=== PATIENT | female | born 1950 | race Caucasian/White ===

== ENCOUNTER 2019-05-25 13:39 | Emergency (ER) | payer MEDICARE, SELFPAY ==
--- NOTE | 2019-05-25 13:51 | DI.RAD.S_ITS ---
PROCEDURE: XR SHOULDER RT MIN 2V INDICATIONS: fall with pain in shoulder TECHNIQUE: 3 views of the shoulder were acquired. COMPARISON: None. FINDINGS: Bones: No fractures or dislocations. No suspicious bony lesions. Visualized ribs appear intact. Soft tissues: No suspicious soft tissue calcifications. IMPRESSION: Moderate right a.c. joint without fracture, rthritis but no acute trauma found. Dictated by: Jaspreet Turner M.D. on 05/25/2019 at 14:20 Approved by: Jaspreet Turner M.D. on 05/25/2019 at 14:20
[2019-05-25 13:52] VITALS: BP 170/94; PULSE 105; RESP 16; TEMP 36.2; O2SAT 96; BMI 41.1
--- NOTE | 2019-05-25 14:25 | ED_ITS ---
HPI - Extremity Injury (Upper) <ANTOINE Moreno - Last Filed: 05/25/19 19:10> General Chief Complaint: Extremity Injury, Upper Stated Complaint: FELL ON RIGHT SHOULDER Time Seen by Provider: 05/25/19 13:43 Source: patient Mode of arrival: ambulatory Limitations: no limitations History of Present Illness HPI narrative: 68-year-old female with a history of right shoulder strain, presents emergency department today after tripping over the hose and falling on her right shoulder. She stated that she is unable to lift her arm above her head due to the pain, she states the pain is a dull aching 5/10 that is worse with movement and better with rest. She was currently seeing physical therapy for a strain that she has had to that shoulder. She denies any fevers, chest pain, shortness of breath, syncope, dizziness, previous surgeries to the shoulder, numbness, tingling, nausea, vomiting, or bowel changes. Related Data Home Medications Medication Instructions Recorded Confirmed CHOLECALCIFEROL (VITAMIN D3) 2,000 iu PO Q DAY #0 07/08/10 05/19/18 (Vitamin D3) [MELATONIN] 3 mg PO HS #0 04/27/11 [OMEGA 3] Q DAY #0 04/27/11 05/19/18 [PROGESTERONE] mg BID #0 04/27/11 05/19/18 [VITAMIN B COMPLEX] Q DAY #0 04/27/11 losartan 25 mg PO BID #0 04/27/11 05/19/18 lovastatin 10 mg PO QPM #0 04/27/11 05/25/19 metformin [Glucophage] 500 mg PO Q DAY #0 04/27/11 05/25/19 omeprazole 20 mg PO QDAY #0 04/27/11 aspirin 81 mg tablet,delayed 81 mg PO DAILY 05/19/18 05/19/18 release diclofenac sodium 2 - 4 g TOPICAL QID PRN 05/25/19 05/25/19 Allergies Allergy/AdvReac Type Severity Reaction Status Date / Time ascorbic acid Allergy Verified 05/25/19 13:52 codeine Allergy Verified 05/25/19 13:52 Sulfa (Sulfonamide Allergy Verified 05/25/19 13:52 Antibiotics) Review of Systems <ANTOINE Moreno - Last Filed: 05/25/19 19:10> Review of Systems REVIEW OF SYSTEMS: GENERAL: Denies fever or chills. HENT: No head trauma. EYES: No double vision or vision loss. CARDIOVASCULAR: No chest pain or syncope. RESPIRATORY: No shortness of breath or cough. GASTROINTESTINAL: No nausea, vomiting, diarrhea, or constipation. GENITOURINARY: No flank pain or dysuria. MUSCULOSKELETAL: Complains of right shoulder pain, see HPI. INTEGUMENTARY: No rash, lesions, or pruritus. NEURO: No numbness, tingling. PSYCH: No behavior or mood changes. PFSH <ANTOINE Moreno - Last Filed: 05/25/19 19:10> Medical History Abdominal hernia (Resolved) Surgical History H/O gastric bypass (Resolved) H/O medial meniscus repair of right knee (Resolved) H/O tubal ligation (Resolved) Status post surgery (07/08/10) Social History Smoking Status: Never smoker Social History Smoking Status: Never smoker Exam <ANTOINE Moreno - Last Filed: 05/25/19 19:10> Initial Vital Signs Initial Vital Signs: Vital Signs Temperature 97.2 F L 05/25/19 13:52 Pulse Rate 105 H 05/25/19 13:52 Respiratory Rate 16 05/25/19 13:52 Blood Pressure 170/94 H 05/25/19 13:52 Pulse Oximetry 96 05/25/19 13:52 PHYSICAL EXAMINATION: GENERAL: Well groomed, alert, and cooperative. Answers questions promptly and appropriately. Vital signs noted. HENT: Normocephalic, atraumatic. Small superficial lacerations about 0.25cm were noted to the right side of her nose and under her eye, this appeared to be from a branch that was in the way when she fell. EYES: Symmetrical, sclera white, no periorbital swelling. CARDIOVASCULAR: S1 and S2 sounds normal. Regular rate and rhythm, no murmurs, clicks, or bruits. No pedal edema. RESPIRATORY: Normal respiratory rate, trachea midline, airway patent. No stridor, nasal flaring or accessory muscle use. Lungs are clear in all oneill. MUSCULOSKELETAL: Right shoulder tenderness specific to AC area. Inability to extend shoulder due to pain. Limited internal and external rotation due to pain. Small amount of swelling to area of AC joint, no ecchymosis. Full range of motion of elbow, wrist, and hand. Upper extremity strength was equal bilaterally. Normal gait and coordination. Equal tone and mass bilaterally. No spinal tenderness or deformities. EXTREMITIES: CMS intact. No pedal edema. SKIN: Warm, dry, soft, appropriate color for ethnicity. No lesions, rashes, or wounds. NEURO: Alert and Oriented X 3. No sensory deficits. PSYCH: Appropriate affect and mood. <Fauzia Olmedo DO - Last Filed: 05/26/19 07:32> Initial Vital Signs Initial Vital Signs: Vital Signs Temperature 97.2 F L 05/25/19 13:52 Pulse Rate 105 H 05/25/19 13:52 Respiratory Rate 16 05/25/19 13:52 Blood Pressure 170/94 H 05/25/19 13:52 Pulse Oximetry 96 05/25/19 13:52 Course <ANTOINE Moreno - Last Filed: 05/25/19 19:10> Course Narrative: Patient states she felt better after administration of Toradol. I discussed with patient that she should follow up with her primary care provider. She states that she is already seeing a physical therapist, he encouraged her to speak with physical therapist about altering the therapy due to her new diagnosis. Explained to patient that in order we need to come from her primary care provider for extensive lr as he or she has the ability to follow up with her. Orders Ordered: Discontinued Medications Ketorolac Tromethamine (Toradol) 30 mg IM NOW ONE Stop: 05/25/19 14:08 Last Admin: 05/25/19 14:38 Dose: 30 mg Consultations Consultation #1: Patient was staffed with Dr. Olmedo. Vital Signs - 8 hr 05/25/19 13:52 Temperature 97.2 F L Pulse Rate 105 H Respiratory Rate 16 Blood Pressure 170/94 H Pulse Oximetry 96 <Fauzia Olmedo DO - Last Filed: 05/26/19 07:32> Orders Ordered: Discontinued Medications Ketorolac Tromethamine (Toradol) 30 mg IM NOW ONE Stop: 05/25/19 14:08 Last Admin: 05/25/19 14:38 Dose: 30 mg Vital Signs - 8 hr 05/25/19 13:52 Temperature 97.2 F L Pulse Rate 105 H Respiratory Rate 16 Blood Pressure 170/94 H Pulse Oximetry 96 [facility] - Extremity Injury (Upper) <ANTOINE Moreno - Last Filed: 05/25/19 19:10> Medical Records Attestation: I reviewed the patient's medical records. Lab Data Attestation: I reviewed the patient's lab results. Imaging Data R Shoulder: Radiologist's impression: [address] [address] XRay Report Signed Patient: Marlen Jules MMR#: [id number] : [id number]:[id number] Age/Sex: 68 / FDate of Service: 05/25/19 Loc: ED Accession Number: [id number] Procedure: XR shoulder RT min 2V Ordering Provider: Halie Hernandez PROCEDURE: XR SHOULDER RT MIN 2V INDICATIONS: fall with pain in shoulder TECHNIQUE: 3 views of the shoulder were acquired. COMPARISON: None. FINDINGS: Bones: No fractures or dislocations. No suspicious bony lesions. Visualized ribs appear intact. Soft tissues: No suspicious soft tissue calcifications. IMPRESSION: Moderate right a.c. joint without fracture, rthritis but no acute trauma found. Dictated by: Jaspreet Turner M.D. on 05/25/2019 at 14:20 Approved by: Jaspreet Turner M.D. on 05/25/2019 at 14:20 [facility] Narrative Medical decision making narrative: Differential includes AC joint separation (this is noted on x-ray, , tenderness states the area reported trauma to right shoulder with history of shoulder issues), fracture (less likely due to no evidence of fracture on x-ray), strain, sprain, soft tissue injury. Discharge Plan Departure Patient Disposition: Home Clinical Impression: Acromioclavicular joint separation Qualifiers: Encounter type: initial encounter Laterality: right Qualified Code(s): S43.101A - Unspecified dislocation of right acromioclavicular joint, initial encounter Discharge Date/Time: 05/25/19 15:21 Interventions: ED Discharge Assessment Last Done: 05/25/19 15:20 Instructions: DI for AC Joint Separation Activity Restrictions/Additional Instructions: Thank you for entrusting me with your care today. As discussed, your x-ray show that you have AC joint separation, which is a tear in the ligament of your shoulder. I have given you a sling to use for pain as needed. Do not use the sling more than a week. I recommend that you follow up with your primary care provider in the next few weeks, as well as continue with physical therapy. Return to the emergency department if he develops chest pain, shortness of breath, seizures, syncope, high fevers, or uncontrollable vomiting. Prescriptions: No Action CHOLECALCIFEROL (VITAMIN D3) (Vitamin D3) 2,000 iu PO Q DAY Qty: 0 RF: 0 [PROGESTERONE] BID Qty: 0 RF: 0 lovastatin 10 mg Tablet 10 mg PO QPM Qty: 0 RF: 0 losartan 25 MG tablet 25 mg PO BID Qty: 0 RF: 0 metformin [Glucophage] 500 MG tablet 500 mg PO Q DAY Qty: 0 RF: 0 omeprazole 20 MG capsule,delayed release(DR/EC) 20 mg PO QDAY Qty: 0 RF: 0 [OMEGA 3] Q DAY Qty: 0 RF: 0 [VITAMIN B COMPLEX] Q DAY Qty: 0 RF: 0 [MELATONIN] 3 mg PO HS Qty: 0 RF: 0 aspirin 81 mg tablet,delayed release (DR/EC) 81 mg PO DAILY RF: 0 diclofenac sodium 1 % gel 2 - 4 g topical QID PRN (Reason: pain) RF: 0 Referrals: Haley Bills PA-C [Primary Care Provider] - <Fauzia Olmedo DO - Last Filed: 05/26/19 07:32> [facility] ED Attending Tomas Attestation: I was immediately available in the department for consultation. Documentation has been reviewed. I agree with assessment and plan.
[2019-05-25] MEDS: KETOROLAC 60 MG/2 ML VIAL 30 MG IM (14:38)
== END 2019-05-25 15:21 | disposition home or self-care (01) ==
PROVIDERS: Emergency Provider Nurse Practitioner; Family Provider Physician Assistant Medical; PCP Physician Assistant Medical
DX: S43.101A Unspecified dislocation of right acromioclavicular joint, initial encounter (principal); W01.0XXA Fall on same level from slipping, tripping and stumbling without subsequent striking against object, initial encounter
CPT/HCPCS: 73030; 96372; 99282; 99283; J1885

== ENCOUNTER → 2019-06-12 19:49 | Outpatient (CLI) | payer MEDICARE, SELFPAY ==
--- NOTE | 2019-06-12 19:54 | DI.MRI.S_ITS ---
PROCEDURE: MR SHOULDER RT WO CON INDICATIONS: CLOSED GLENOID FX RIGHT TECHNIQUE: Noncontrast oblique coronal T2 fast spin echo with fat saturation, oblique sagittal T1 spin echo and T2 fast spin echo with fat saturation, axial T1 spin echo and T2 fast spin echo with fat saturation through the shoulder. COMPARISON: None. FINDINGS: Image quality: Diagnostic. Rotator cuff: There is a complete tear evident involving the supraspinatus tendon that measures at least 3.2 cm in transverse dimension with retraction of the torn tendon fragments proximally by approximately 2.7 cm. There also is complete or near-complete tearing involving the subscapularis tendon, measuring approximately 1.9 cm in transverse dimension. Proximal retraction of the torn tendon fragments by approximately 2.5 cm is present. There may be a few intact fibers along the inferior subscapularis tendon. The infraspinatus tendon demonstrates mild increased signal with a low-grade intrasubstance/delaminating partial-thickness tearing. The teres minor tendon is intact. There is atrophy of the supraspinatus and infraspinatus muscles. No significant subscapularis or teres minor muscle atrophy is evident. Bones and bursae: No acute fracture, dislocation, or suspicious osseous lesion is identified. There is a large glenohumeral joint effusion. There are moderate degenerative changes of the acromioclavicular joint. Fluid is contained within the subacromial subdeltoid bursa. Capsule and soft tissues: There is irregular posterior labral tearing that extends from approximately the 11 o'clock position (anterosuperior) through the 12 o'clock position (superior) and along the posterior labrum to approximately the 6 o'clock position (inferior). The long head of the biceps tendon is dislocated from the bicipital groove and positioned on the anteromedial aspect of the humeral head. This tendon demonstrates increased signal along its intra-articular course without a full-thickness tear identified. There is slight edema about the inferior glenohumeral ligament. The middle and superior glenohumeral ligaments are not well evaluated. IMPRESSION: 1. Large full-thickness tears of the supraspinatus head subscapularis tendons with mild corresponding tendon retraction. Atrophy of the supraspinatus tendon raises the suspicion for possible superimposed chronic process. 2. Low-grade intrasubstance/delaminating partial-thickness tear of the infraspinatus tendon with corresponding tendinopathy. 3. Moderate-sized posterior labral tear. 4. Moderate tendinopathy involving the intra-articular portion of the biceps tendon. This tendon is dislocated from the bicipital groove, suggesting a transverse ligament tear. 5. Moderate degenerative changes of the acromioclavicular joint. 6. Large glenohumeral joint effusion. 7. Probable low-grade sprain of the inferior glenohumeral ligament. Dictated by: Patrick Oden M.D. on 06/13/2019 at 8:58 Approved by: Patrick Oden M.D. on 06/13/2019 at 9:07
== END ==
PROVIDERS: Family Provider Physician Assistant Medical; PCP Physician Assistant Medical; Visit Provider Orthopaedic Surgery
DX: S43.491A Other sprain of right shoulder joint, initial encounter (principal); M75.121 Complete rotator cuff tear or rupture of right shoulder, not specified as traumatic; M25.411 Effusion, right shoulder; M19.011 Primary osteoarthritis, right shoulder
CPT/HCPCS: 73221

== ENCOUNTER → 2019-09-27 13:37 | Outpatient (CLI) | payer MEDICARE, SELFPAY ==
[2019-09-27 14:41] LABS: Alanine Aminotransferase 16 IU/L (<35); Albumin 4.8 g/dL (3.5-5.0); Albumin Globulin Ratio 1.7 (1.0-2.8); Alkaline Phosphatase 79 U/L (38-126); Aspartate Aminotransferase 21 IU/L (14-36); BUN Creatinine Ratio 37.1 (6-22); Bilirubin Total 0.7 mg/dL (0.2-1.3); Blood Urea Nitrogen 26 mg/dL (7-17); Calcium 10.3 mg/dL (8.4-10.2); Carbon Dioxide 24 mmol/L (22-32); Chloride 102 mmol/L (98-107); Estimated Glomerular Filt Rate > 60.0 mL/min (>60); Globulin 2.8 g/dL (1.7-4.1); Glucose 118 mg/dL (80-110); HEMOLYSIS < 15 (0-50); Potassium 4.7 mmol/L (3.4-5.1); Sodium 136 mmol/L (137-145); Total Protein 7.6 g/dL (6.3-8.2)
== END ==
PROVIDERS: Surgery; Family Provider Physician Assistant Medical; PCP Physician Assistant Medical; Visit Provider Surgery
DX: Z98.84 Bariatric surgery status (principal)
CPT/HCPCS: 36415; 80053

== ENCOUNTER → 2019-09-28 15:13 | Outpatient (CLI) | payer MEDICARE, SELFPAY | PROVIDERS: Family Provider Physician Assistant Medical; PCP Physician Assistant Medical; Visit Provider Orthopaedic Surgery | DX: Z01.818 Encounter for other preprocedural examination (principal) | CPT/HCPCS: 93005 ==

== ENCOUNTER 2019-10-10 06:04 | Inpatient (IN) | payer MEDICARE, SELFPAY ==
[2019-09-28 08:55] VITALS: BMI 42.5
[2019-10-10] VITALS (14 sets, daily range): BP systolic 115–150; BP diastolic 43–93; PULSE 92–111; RESP 17–27; TEMP 36.1–36.8; O2SAT 88–100; BMI 42.5
--- NOTE | 2019-10-10 06:00 | DI.RAD.S_ITS ---
PROCEDURE: XR SHOULDER RT 1V INDICATIONS: post op TECHNIQUE: 1 views of the shoulder were acquired. COMPARISON: [facility], CR, XR SHOULDER RT MIN 2V, 05/25/2019, 13:54. FINDINGS: Bones: Status post right shoulder arthroplasty. Alignment anatomic. Soft tissues: No suspicious soft tissue calcifications. IMPRESSION: Expected appearance following right shoulder arthroplasty. Dictated by: Mayte Jenkins M.D. on 10/10/2019 at 10:27 Approved by: Mayte Jenkins M.D. on 10/10/2019 at 10:28
[2019-10-10] MEDS: ACETAMINOPHEN 325 MG TABLET 975 MG PO ×3 (06:59→21:23)
[2019-10-10] MEDS: MELOXICAM 7.5 MG TABLET 15 MG PO (07:00)
[2019-10-10] MEDS: PREGABALIN 75 MG CAPSULE PO (07:00)
[2019-10-10] MEDS: fentaNYL 100 MCG/2 ML INJ 50 MCG IV (07:44)
[2019-10-10] MEDS: MIDAZOLAM 2 MG/2 ML VIAL IV (07:45)
--- NOTE | 2019-10-10 07:51 | SUR.PREOP ---
Block start time [0745] . Monitoring initiated and maintained throughout procedure. Oxygen and medications given per anesthesiologist instructions. Patient remained stable throughout procedure, no adverse reactions noted. Block end time [0747].
[2019-10-10] MEDS: CEFAZOLIN 2 GM/100 ML FROZ.PIGGY IV (07:52)
--- NOTE | 2019-10-10 07:55 | PM.PREOP ---
Pre-operative Note Interval Note History & Physical reviewed/Exam performed by Physician: Yes Changes to H&P: No
--- NOTE | 2019-10-10 08:05 | P.OP_ITS ---
Operative Date/Time/Diagnoses Date of procedure: 10/10/19 Time of procedure: 09:30 Pre-op diagnosis: Massive irreparable rotator cuff tear, right shoulder Post-op diagnosis: same Procedure & Clinicians Procedure: Right reverse total shoulder replacement Same procedure as scheduled: Yes Indications: The patient is had chronic right shoulder pain unresponsive to nonoperative therapies. Radiographic studies have revealed changes consistent with a massive rotator cuff tear. They have elected to proceed with reverse total shoulder replacement after discussion of the risks benefits and alternatives. Risks discussed included but were not limited to: Failure to improve, instability, infection, nerve damage, deep venous thrombosis, pulmonary embolism, stroke, coma, myocardial infarction and . Surgeon: Kj Ayon Thoracic Medicine Specialist: Wilda Ramos'Brien Click Yes if Unassisted: No Anesthesia Type: General, Peripheral nerve block and Local Operative Notes Findings: Massive rotator cuff tear including the entirety of the subscapularis, supraspinatus and infraspinatus tendons. Extremely osteoporotic bone with cavitation of the glenoid vault using the tap and the need of bone graft in the humeral metaphysis. Closure Type: primary Specimen(s): none sent Prosthetic devices, grafts, tissues, transplants, or devices: Implants used in this procedure were manufactured by the [employer] and included an RSP reverse total shoulder system with a 30 mm porous-coated glenoid base plate, 4 peripheral locking screws measuring 22 mm long for 2 of them and 14 mm long for 2 of them, a 32 mm neutral glenoid head with retaining screw, an 8 mm porous-coated small shell P2 stem, and a 32 mm neutral +4 socket. Applied: drain(s) and implant(s) Estimated Blood Loss (mL): 150 Blood products transfused: none Procedure in detail: The patient was seen in the preoperative area where they identified the right shoulder as the operative site and this was marked with my initials. They received preoperative antibiotics and underwent the induction of an interscalene block. They were taken to the operating room and placed on the operating room table in a supine position with the underwent the induction of a general anesthetic. There were then repositioned in the ?beach chair? position using a dedicated positioner. All pressure points were well padded. The knees were slightly bent to prevent tension on the sciatic nerves. A time piece repairer-out was performed. The right arm was prepared from the fingertips to the base of the neck with ChloraPrep in the usual fashion and draped through sterile drapes. An approximately 15 cm incision was created starting at the clavicle just above the coracoid and going to the deltoid insertion. The deltopectoral interval was used to access the shoulder taking the vein to the medial side. The vein was protected throughout the case. The upper 1 cm of the pectoralis major was released. The biceps tendon was identified and was tenodesed over the pectoralis tendon using a suture. The subscapularis was completely torn and retracted. The shoulder was dislocated and a proximal humeral osteotomy performed using an extramedullary guide. A proximal humeral protector was then placed. Retractors were placed access the glenoid. A 360 degree release was performed of the glenoid with care being taken to protect the axillary nerve. The guide was used to drill the guide hole in the center of the inferior glenoid. The tap was placed, but the quality of the bone in the glenoid vault was extremely poor and the threads of the tap basically excavated a hole. With great care I was eventually able to engage the medial cortex with the tap. The tap handle was then used as a guide for the reamer with great care. The tap was then removed and the glenoid base plate inserted with bone graft from the humeral head in the cavity of the glenoid. The peripheral locking screws were then placed through the appropriate guide. A trial glenoid head was applied. We then turned our attention to the humerus. The proximal humeral protector was removed. Cylindrical reamers were used to size the canal. Broaching was then performed beginning with a small broach and working up until a line to line fit with the reamer was obtained. The guide for the proximal metaphyseal reamer was then applied and the metaphysis was reamed appropriately. The trial metaphyseal portion of the body was then applied to the broach. Trial reductions were performed and the size of the glenoid head and the cup were optimized. Stability was checked in maximal internal and external rotation and range of motion was checked to allow access to the top of the head, internal rotation to an excess of 70? in the ?scarecrow position? and the ability to reach the groin. The appropriate final prosthetic components were then opened. The glenoid head was impacted into position and checked for rotational and axial stability before placing the set screw. The humeral prosthetic was then impacted into position with bone graft from the humeral head placed in the upper humeral diaphysis at the diaphyseal-metaphyseal junction. The humeral cup was placed. The joint was relocated and irrigated. A deep drain was placed. The deltopectoral interval was reapproximated with 0 Vicryl. Subcutaneous layer was closed with interrupted 3-0 Vicryl and skin with a running 3 0 V lock suture. Subcutaneous tissues were then infiltrated with 0.5% Marcaine for postoperative pain control. An Aquacel Ag dressing was applied and the patient's arm was placed in a sling. The patient was then transferred to the recovery room in good condition having tolerated the procedure well. Complications: none Post-operative Condition: stable Disposition: PACU Plan for aftercare: The patient will be allowed to do pendulum exercises and range of motion in with her hand in front of her torso. She will be discharged, likely tomorrow, when she is able to independently ambulate.
[2019-10-10] MEDS: BUPIVACAINE 0.5% W/ EPI (PF) 10 ML VIAL 30 ML INJ (08:30)
[2019-10-10] MEDS: TRANEXAMIC ACID 1,000 MG VIAL 1000 MG INJ ×2 (08:31→09:37)
--- NOTE | 2019-10-10 08:41 | SUR.OPER ---
Beach chair with Schlein shoulder positioner. Lower body on padded OR bed. Head in foam padded head cradle, secured with straps. Non-operative arm secured <90 degrees abduction. Pillow under knees. Gel pad under heels. Safety belt at thigh. Cloth tape over blanket over lower legs.
--- NOTE | 2019-10-10 10:14 | SUR.PHASEI ---
repositioned patient in bed.
[2019-10-10] MEDS: hydrOXYzine pamoate 25 MG CAPSULE 50 MG PO (10:41)
--- NOTE | 2019-10-10 11:06 | SUR.PHASEI ---
Patient to room 212 in stable condition. Bedside update given to receiving RnShannon.
[2019-10-10] MEDS: LACTATED RINGERS 1,000 ML 125 ML IV ×2 (12:11→19:31)
[2019-10-10] MEDS: INSULIN ASPART 100 UNIT/ML INSULN PEN SUBCUT ×2 (12:13→18:07)
[2019-10-10] MEDS: HYDROCODONE/ACET 5/325 TABLET 1 TAB PO ×2 (13:44→18:14)
--- NOTE | 2019-10-10 14:02 | PC.NURSE ---
POST OP ARRIVAL 1100 - pt awake, talkative, very restless, per manager community, pt complaint cramping like discomfort posterior r shoulder and was given 50mg po vistaril prior to transport to room, pt req stand, assist x 2 person to dangle position for safety and using a fww to steady her lue, pt stood w/o dizziness and tsf to chair, pillow supports provided and ice pack to posterior shoulder, pt immediately, aquacell dsg cdi w/compressed hemovac, serosang in tubing, wearing sling, her posterior shoulder area had small area pink from ekg electrode, no open area or wound noted, pt stated the repositioning helped her shoulder discomfort and was able to lacey seated chair through lunch, up x 1 person assist to void, ret to chair, began to feel discomfort again in posterior area of r shoulder and discussed medications, started with norco 5/325mg x 1 tab, ra 87% initially and kept with 2L, 02 for sat 94%, p104, numbness present r fingers, able to move slightly on command.
--- NOTE | 2019-10-10 15:01 | PT.IIE ---
Current Diagnoses Complete rotator cuff tear or rupture of right shoulder, not specified as traumatic (10/10/19) Strain of muscle(s) and tendon(s) of the rotator cuff of right shoulder, initial encounter (10/10/19) Surgery Performed Operation Date: 10/10/19 07:45 Actual Procedures p Total Shoulder Arthroplasty - Reverse(Right) - Kj Ayon MD Surgical History (Last Updated 09/28/19 @ 09:25 by Letha Clay RN) H/O gastric bypass (Resolved ~1979) H/O medial meniscus repair of right knee (Resolved) History of bilateral tubal ligation (Acute ~1984) History of hernia repair (Acute) Hx of appendectomy (Acute) Hx of cholecystectomy (Acute ~1977) Hx of colectomy (Acute ~2003) Hx of tonsillectomy (Acute) Hx of varicose vein stripping (Acute) Medical History (Last Updated 09/28/19 @ 09:25 by Letha Clay RN) Abdominal hernia (Resolved) History of prosthetic unicompartmental arthroplasty of left knee (Acute) HLD (hyperlipidemia) (Acute) HTN (hypertension) (Acute) Low back pain (Acute) Osteoarthritis (Acute) Pneumonia (Acute ~1973) Pre-diabetes (Acute) Right shoulder pain (Acute) Small bowel obstruction (Acute ~2009) Physical Therapy Inpatient Evaluation/Re-Eval M1 PT/OT-IP Prior Functional Status Start: 10/10/19 16:41 Freq: NEEDED Status: Active Protocol: Document 10/10/19 15:01 AB (Rec: 10/10/19 17:03 AB [id number]) Medical Review Prior Functional Status Medical History Reviewed Yes Communication able to make needs known Mobility and Gait stated that she is independent with all mobilities and ambulation without AD Social History Household Members family Living Arrangements House Number of Floors (Floors) One Floor Number of Stairs To Enter/Railing? 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 dad but her dad does not need physical assistance; stated that her brother will stay with them until wednesday and after that, her friend and niece will assist intermittently when needed M2 PT-IP Current Condition Start: 10/10/19 16:41 Freq: NEEDED Status: Active Protocol: Document 10/10/19 15:01 AB (Rec: 10/10/19 17:03 AB [id number]) Physical Therapy Current Condition Current Condition Evaluation Date 10/10/19 Treatment Diagnosis s/p R TSR reverse; difficulty in walking Onset Date 10/10/19 Precautions Shoulder Precautions Sling,PROM,Internal Rotation to Body,No External Rotation, No Abduction,Forward Flexion to 90 degrees,Pendulums Weight Bearing Status Weight Bearing Status Non-Weight Bearing Allowed Weight Bearing Amount (enter % NWB RUE or #) (%) M3 PT-IP Subjective Start: 10/10/19 16:41 Freq: NEEDED Status: Active Protocol: Document 10/10/19 15:01 AB (Rec: 10/10/19 17:03 AB [id number]) Subjective Physical Therapy Visit Type Type Initial Evaluation Visit Start Time 15:01 Visit Stop Time 15:46 Total Visit Minutes 45 Number of MUCK BOSS Visits 0 Physical Therapy Visit Comments Patient Comments agreeable to do PT Therapy Pain Assessment Pain Present Pain Present Denied Pain M4 PT-IP Mobility and Gait Start: 10/10/19 16:41 Freq: NEEDED Status: Active Protocol: Document 10/10/19 15:01 AB (Rec: 10/10/19 17:03 AB [id number]) PT-Bed Mobility Assessment Supine to Sit Supine to Sit Minimal Assistance Sit to Supine Sit to Supine Maximum Assistance,1 Person Assistance PT-Transfer Assessment Sit to and From Stand Sit to and from Stand Minimal Assistance,1 Person Assistance Equipment Transfer Assistive Device Gait Belt Orthotic/Prosthetic Devices or Brace: Yes Transfers Transfer Destination Bed,Chair,Toilet Transfer Ability Level of Assist Minimal Assistance,1 Person Assistance,Use of Upper Extremities Comments Mobility Comments pt complete step transfer chair to bed. educated pt on sling management and elbow/ hand exercise but pt still does not have motor control of RUE. educated on pendulum but opted not have have pt do pendulum due to decrease motor control of RUE at this time. pt requested to use the toilet and ambulated witout AD min A and cues. pt ambulated back from the toilet to the chair without AD. positioned pt on the chair. call light and table placed within reach. Gait Assessment Gait Gait Assistance Required: Minimum Assistance Distance (Feet) 15 Able to Maintain Weight Bearing Status Yes During Gait Assistive Devices Assistive Device None,Gait Belt Orthotic/Prosthetic Devices or Brace: No Gait Deviations General Gait Pattern Antalgic,Decreased Stride Length,Decreased Feet Clearance Factors Limiting Gait Function Factors Limiting Gait Function Decreased Activity Tolerance, Decreased Sensation,Decreased Strength,Difficulty Following Directions,Limited Range of Motion,Pain,Poor Balance,Poor Safety Awareness Comments Gait Comments ambulated bed<>toilet ~ 15 ft without AD min A and cues. pt presents with unsteady waddling gait. pt stated that she has plantar fasciitis and uses a neoprene arch support for her feet and ill ask her brother to bring them. Pt also stated that her head feels fuzzy and cannot walk straight and think straight. BP: 147/75. Also educated pt on safety and assessment with ambulation using SPC/quad cane if needed. Pt agreed. PT-Balance Assessment Sitting Balance and Reactions Static Sitting Balance Ability Good Dynamic Sitting Balance Ability Good Standing Balance and Reactions Static Standing Balance Ability Fair Dynamic Standing Balance Ability Fair Device Used without AD M5 PT-IP Objective Assessments Start: 10/10/19 16:41 Freq: NEEDED Status: Active Protocol: Document 10/10/19 15:01 AB (Rec: 10/10/19 17:03 AB [id number]) Orientation Orientation/Cognition Level of Alertness Alert Orientation Name,Place,Situation Safety Awareness Decreased Safety Awareness Gross Range of Motion Lower Extremity ROM Assessment Within Functional Limits Strength Lower Extremity Strength Assessment Within Functional Limits Sensation Assessment Sensation Gross Sensation Right UE Impaired Light Touch Impaired Proprioception (Position) Impaired Sensation Description Numbness Comments Sensation Comments still cannot feel RUE M6 PT-IP Treatment Start: 10/10/19 16:41 Freq: NEEDED Status: Active Protocol: Document 10/10/19 15:01 AB (Rec: 10/10/19 17:03 AB [id number]) Physical Therapy Treatment Exercises Exercises Elbow Flexion/Extension,Wrist ROM,Hand ROM Education Brace Education Donning,Kendrick,Patient Other Treatments Other Treatment Performed completed elbow/hand PROM educated pt on sling management M7 PT-IP Assessment and Plan Start: 10/10/19 16:41 Freq: NEEDED Status: Active Protocol: Document 10/10/19 15:01 AB (Rec: 10/10/19 17:03 AB [id number]) PT Summary Assessment and Plan Potential Rehabilitation Potential Fair Status of Condition at Evaluation Evolving Summary Impairments Pain,ROM,Strength,Balance, Coordination,Sensation,Tone, Cognition,Bed Mobility, Transfers,Gait,Activity Tolerance Assessment Summary pt requires one person min to mod A with mobility and will only have assist until wednesday with her brother staying with her but will not be able to assist her with her toileting needs. Pt stated that she already ask for OT to see her but no OT eval order received yet per OT. d/c plan depending on progress and level of assistance pt's brother will be able to provide. will continue to assess progress and will conduct caregiver training when appropriate. Goals Bed Mobility Goal Standby Assistance Transfer Goal Standby Assistance,Cane Gait Goal Standby Assistance,Cane Gait Distance 200 Other Goals improve ambulation without AD SBA ~ 150 ft Days to Meet Goals 5 Frequency of Treatment Frequency Of Treatment Twice a Day Treatment Plan Physical Therapy Treatment Plan Bed Mobility Training,Transfer Training,Gait Training, Therapeutic Exercise,Balance Retraining,Post Op Education, Discharge Planning,Hot or Cold Pack,Neuromuscular Re-ed, Coordination Retraining,Manual Therapy Other Recommendations and Next Treatment bed mobility, ambulation, Focus caregiver training Recommendations To Nursing Amount of Assist Needed 1 Person Assist Discharge Recommendations PT Discharge Recommendations Home with Assistance,Home Health,SNF Rehab,Outpatient PT Other Discharge Recommendations depending on progress: SNF vs home with assist/homehealth PT /outpt PT
[2019-10-10] MEDS: LOSARTAN 50 MG TABLET PO (21:23)
[2019-10-10] MEDS: ASPIRIN EC 81 MG TABLET PO (21:23)
[2019-10-10] MEDS: ATORVASTATIN 20 MG TABLET PO (21:23)
[2019-10-10] MEDS: DOCUSATE 100 MG CAPSULE PO (21:23)
[2019-10-10] MEDS: NAPROXEN 250 MG TABLET 500 MG PO (21:24)
[2019-10-11] VITALS: BP 124/84; PULSE 93; RESP 16; TEMP 37.2; O2SAT 94
[2019-10-11 05:21] LABS: Hemoglobin 12.8 g/dL (12.0-16.0); Mean Corpuscular HGB Conc 33.7 % (30-36); Mean Corpuscular Hemoglobin 31.7 PG (26-34); Mean Corpuscular Volume 94.1 fL (80-100); Platelet Count 264 X10^3/uL (150-400); Red Blood Cell Count 4.04 X10^6/uL (4.0-5.2); Red Cell Distribution Width 13.4 % (11.6-14.8); White Blood Cell Count 10.2 X10^3/uL (4.5-11.0)
[2019-10-11] MEDS: PANTOPRAZOLE 20 MG TABLET PO (05:24)
[2019-10-11 05:35] VITALS: BP 137/72; PULSE 84; RESP 16; TEMP 36.2; O2SAT 95
--- NOTE | 2019-10-11 07:56 | PM.DS.1 ---
History of Present Illness History of Present Illness Date Patient Seen: 10/11/19 Time Patient Seen: 07:56 Chief complaint: [id number] Narrative: The history and physical is contained in the chart previously completed note. Please refer to that note for this information. Discharge Providers Provider Date of admission: 10/10/19 06:04 Discharge Date: 10/11/19 Primary care physician: Haley Bills PA-C Consults: 10/10/19 11:19 Consult to Discharge Planning Routine Comment: Consult to Physical Therapy Evaluate & Treat Comment: PROM, 0 ER, 0 ABD, IR to body, FF 90, pendulums Physician Instructions: Evaluate and Treat Discharge provider: Kj Ayon MD Summary Hospital Course Discharge Diagnosis: Right shoulder massive irreparable rotator cuff tear Hospital Course: The patient was admitted to the hospital and taken directly to the operating room on 10/10/2019 where she underwent a right reverse total shoulder replacement without complications. She was stable on postoperative day 1 although her block was still partially in place. It is likely she will be ready for discharge later in the day on postoperative day 1. Status at Discharge Cognitive/behavioral status at discharge: oriented Functional status at discharge: independent ambulation Overall status at discharge: patient is progressing back to baseline Time Spent with Patient Time spent: Less than 30 minutes Exam Vital Signs (past 8 hours): - 10/11/19 00:00 10/11/19 05:35 Temperature 98.9 F 97.2 F L Pulse Rate 93 H 84 Respiratory Rate 16 16 Blood Pressure 124/84 137/72 Pulse Oximetry 94 95 Oxygen Delivery Method Nasal Cannula Oxygen Flow Rate 0 Narrative Exam Narrative: Right shoulder wound is dressed. There is no drainage on the bandage. Light touch is present although altered in the radial, ulnar, median, muscular cutaneous and axillary nerve distributions. She can extend her thumb, abduct her thumb and abduct her fingers. She can weakly flex her biceps. She can fire her deltoid. Objective Labs Result Diagrams: 10/11/19 04:58 Labs: Laboratory Results - last 24 hr 10/11/19 04:58 WBC 10.2 RBC 4.04 Hgb 12.8 Hct 38.0 MCV 94.1 MCH 31.7 MCHC 33.7 RDW 13.4 Plt Count 264 Discharge Plan Discharge Plan Patient Disposition: Home Discharge orders & Medications Prescriptions: New aspirin 81 mg Tablet,Delayed Release (Dr/Ec) 81 mg PO BID Qty: 84 RF: 0 hydrocodone-acetaminophen 5-325 mg Tablet 1 tab PO Q4HR PRN (Reason: Pain, Moderate (4-6)) Qty: 50 RF: 0 Continued cholecalciferol (vitamin D3) [Vitamin D3] 5,000 unit Tablet 10,000 unit PO DAILY Qty: 0 RF: 0 losartan 25 MG tablet 50 mg PO BID Qty: 0 RF: 0 metformin [Glucophage] 500 MG tablet 500 mg PO Q DAY Qty: 0 RF: 0 omeprazole 20 MG capsule,delayed release(DR/EC) 20 mg PO QDAY Qty: 0 RF: 0 Fish Oil 360 mg-144 mg- 216 mg-1,200 mg Capsule,Delayed Release(Dr/Ec) 3 cap PO DAILY Qty: 0 RF: 0 diclofenac sodium 1 % gel 2 - 4 g topical QID PRN (Reason: pain) RF: 0 atorvastatin 20 mg Tablet 20 mg PO BEDTIME RF: 0 progesterone micronized 100 mg Capsule 50 mg PO QAM RF: 0 acetaminophen [Tylenol Extra Strength] 500 mg Tablet 1,000 mg PO TID RF: 0 naproxen sodium [Aleve] 220 mg Capsule 440 mg PO BID RF: 0 Vimal-E 200 mg Tablet 200 mg PO BID RF: 0 Follow up/Referrals: Kj Ayon MD [Physician] - 2 Weeks Haley Bills PA-C [Primary Care Provider] - Discharge Health Status Multidrug resistant organism: No MDRO Diet/Activity/Treatments Diet: Diet as Tolerated and Carb-consistent/Diabetic Activity: You may use your right arm with your hand in front of your torso. You may remove the sling for hygiene. Cold/Heat Therapy: Apply ice to the right shoulder for 15 minutes every hour as needed for pain control. Skin/Wound/Dressing Care Report to your healthcare provider any signs of infection, such as:: chills, fever, night sweats, increased pain, unusual drainage and unusual redness Dressing: Leave the dressing in place until your follow-up. You may shower with the dressing in place. If the central strip of the dressing becomes saturated with either water or blood, please call the office. Visit Report/Discharge Packet Instructions: DI for Shoulder Replacement Stand Alone Forms: Surgery Discharge Discharge Data Primary Care Provider: Haley Bills VTE Deep Vein Thrombosis/Pulmonary Embolism Present on Admission: No
[2019-10-11 08:00] VITALS: BP 135/80; PULSE 95; RESP 17; TEMP 36.8; O2SAT 92
[2019-10-11] MEDS: INSULIN ASPART 100 UNIT/ML INSULN PEN SUBCUT (09:17)
[2019-10-11] MEDS: HYDROCODONE/ACET 5/325 TABLET 1 TAB PO (09:18)
[2019-10-11] MEDS: NAPROXEN 250 MG TABLET 500 MG PO (09:19)
[2019-10-11] MEDS: ACETAMINOPHEN 325 MG TABLET 975 MG PO (09:19)
[2019-10-11] MEDS: DOCUSATE 100 MG CAPSULE PO (09:20)
[2019-10-11] MEDS: METFORMIN HCL 500 MG TABLET PO (09:20)
[2019-10-11] MEDS: LOSARTAN 50 MG TABLET PO (09:20)
[2019-10-11] MEDS: ASPIRIN EC 81 MG TABLET PO (09:20)
[2019-10-11] MEDS: CHOLECALCIFEROL (VITAMIN D3) 5,000 UNIT TABLET 10000 UNIT PO (09:21)
[2019-10-11] MEDS: BENZOCAINE/MENTHOL 1 LOZ PKT 1 EACH PO (09:25)
--- NOTE | 2019-10-11 09:51 | PT.IPTN ---
Current Diagnoses Complete rotator cuff tear or rupture of right shoulder, not specified as traumatic (10/10/19) Strain of muscle(s) and tendon(s) of the rotator cuff of right shoulder, initial encounter (10/10/19) Surgery Performed Operation Date: 10/10/19 07:45 Actual Procedures p Total Shoulder Arthroplasty - Reverse(Right) - Kj Ayon MD Physical Therapy Treatment Note M2 PT-IP Current Condition Start: 10/10/19 16:41 Freq: NEEDED Status: Active Protocol: Document 10/10/19 15:01 AB (Rec: 10/10/19 17:03 AB [id number]) Physical Therapy Current Condition Current Condition Evaluation Date 10/10/19 Treatment Diagnosis s/p R TSR reverse; difficulty in walking Onset Date 10/10/19 Precautions Shoulder Precautions Sling,PROM,Internal Rotation to Body,No External Rotation, No Abduction,Forward Flexion to 90 degrees,Pendulums Weight Bearing Status Weight Bearing Status Non-Weight Bearing Allowed Weight Bearing Amount (enter % NWB RUE or #) (%) M3 PT-IP Subjective Start: 10/10/19 16:41 Freq: NEEDED Status: Active Protocol: Document 10/11/19 09:51 AB (Rec: 10/11/19 12:42 AB [id number]) Subjective Physical Therapy Visit Type Type Treatment Note Visit Start Time 09:51 Visit Stop Time 10:29 Total Visit Minutes 38 Number of CHAIN HOOKER Visits 0 Physical Therapy Visit Comments Patient Comments pt agreeable to do PT Therapy Pain Assessment Pain When Pain Assessed At Rest Pain Present Pain Present Pain Reported Location Upper Back Intensity 3 Scale Used Numeric (1 - 10) Pain Behaviors Wincing Pain Management Techniques Re-positioning M4 PT-IP Mobility and Gait Start: 10/10/19 16:41 Freq: NEEDED Status: Active Protocol: Document 10/11/19 09:51 AB (Rec: 10/11/19 12:42 AB [id number]) PT-Bed Mobility Assessment Supine to Sit Supine to Sit Standby Assistance Sit to Supine Sit to Supine Standby Assistance PT-Transfer Assessment Sit to and From Stand Sit to and from Stand Standby Assistance Equipment Transfer Assistive Device Gait Belt Orthotic/Prosthetic Devices or Brace: No Transfers Transfer Destination Bed,Chair Transfer Technique pt ambulated without AD Transfer Ability Level of Assist Standby Assistance,Contact Guard Assistance,1 Person Assistance Comments Mobility Comments pt ambulate from chair to bed without AD SBA. presents with antalgic gait but without LOB . pt completed bed mobility supine<>sit SBA. pt educated on sling management. pt stated that OT told her that they will do sling training together with dressing needs. OT confirmed. pt completed elbow/hand/wrist ROM. educated pt on precautions and weight bearing on RUE. Pt understood. PT educated pt and demonstrated pendulum exercise. pt counter demonstrated and completed. pt agreed to do more ambulation and completed in the hallway. pt requested to stay up on chair afterwards. positioned pt on chair. call light and table placed within reach. Gait Assessment Gait Gait Assistance Required: Standby Assistance,Contact Guard Assist Distance (Feet) 125 Able to Maintain Weight Bearing Status Yes During Gait Assistive Devices Assistive Device Gait Belt Orthotic/Prosthetic Devices or Brace: Yes Gait Deviations General Gait Pattern Antalgic,Decreased Stride Length,Decreased Feet Clearance Factors Limiting Gait Function Factors Limiting Gait Function Decreased Activity Tolerance, Decreased Strength,Limited Range of Motion,Pain,Poor Balance Comments Gait Comments pt presents with antalgic gait but without LOB. M5 PT-IP Objective Assessments Start: 10/10/19 16:41 Freq: NEEDED Status: Active Protocol: Document 10/10/19 15:01 AB (Rec: 10/10/19 17:03 AB [id number]) Orientation Orientation/Cognition Level of Alertness Alert Orientation Name,Place,Situation Safety Awareness Decreased Safety Awareness Gross Range of Motion Lower Extremity ROM Assessment Within Functional Limits Strength Lower Extremity Strength Assessment Within Functional Limits Sensation Assessment Sensation Gross Sensation Right UE Impaired Light Touch Impaired Proprioception (Position) Impaired Sensation Description Numbness Comments Sensation Comments still cannot feel RUE M6 PT-IP Treatment Start: 10/10/19 16:41 Freq: NEEDED Status: Active Protocol: Document 10/11/19 09:51 AB (Rec: 10/11/19 12:42 AB [id number]) Physical Therapy Treatment Exercises Exercises Elbow Flexion/Extension,Wrist ROM,Hand ROM Education Education Provided Precautions,Weight Bearing Status,Safety Brace Education Donning,[place],Patient M7 PT-IP Assessment and Plan Start: 10/10/19 16:41 Freq: NEEDED Status: Active Protocol: Document 10/11/19 09:51 AB (Rec: 10/11/19 12:42 AB [id number]) PT Summary Assessment and Plan Potential Rehabilitation Potential Good Summary Impairments Pain,ROM,Strength,Balance, Coordination,Sensation,Bed Mobility,Transfers,Gait, Activity Tolerance Progress Towards Goals Progressing Toward Goals Assessment Summary pt requiring SBA to CGA with bed mobility, transfers, ambulation without AD. pt is steadier with ambulation today compared to yesterday's. pt plans to go home and her brother will assist her on the first few days and then a friend can assist her afterwards. Goals Bed Mobility Goal Independent Transfer Goal Independent Gait Goal Standby Assistance,Cane Gait Distance 200 Other Goals improve ambulation without AD I ~ 150 ft Days to Meet Goals 5 Frequency of Treatment Frequency Of Treatment Twice a Day Treatment Plan Physical Therapy Treatment Plan Bed Mobility Training,Transfer Training,Gait Training, Therapeutic Exercise,Balance Retraining,Post Op Education, Discharge Planning,Hot or Cold Pack,Neuromuscular Re-ed, Coordination Retraining,Manual Therapy Other Recommendations and Next Treatment bed mobility, ambulation, Focus caregiver training Recommendations To Nursing Amount of Assist Needed 1 Person Assist Discharge Recommendations PT Discharge Recommendations Home with Assistance, Outpatient PT
--- NOTE | 2019-10-11 11:45 | CM.DANOTE ---
Patient is a 68 year old female who was admitted on 10/10/19 for Right Total Shoulder. Pt has [facility] for insurance and her PCP is Dr. Haley Bills. EMR was reviewed. Per Ortho , pt medically stable to d/c home after further therapy today. Per PT/OT, recommending safe d/c home with family support and outpt PT. SW met bedside with pt and OT and explained role and pt confirms that she lives at home in [place] with her demented father and is his primary caregiver. Pt states that her local brother and family are helping to care for their father while she has been admitted for surg and will continue to help at d/c until pt is able to be closer to baseline. Pt states that she feels comfortable with d/c home today via brother's POV after 1300 today and does not anticipate any SW needs at d/c. Plan: Patient to d/c home today around 1300 via brother POV and family assist and outpt PT at [facility] set up. MAXIME Roberto Discharge Planning/Care Management CM Discharge Assessment Start: 10/11/19 11:43 Freq: Status: Active Protocol: Document 10/11/19 11:43 BF (Rec: 10/11/19 11:45 BF [id number]) Discharge Planning Assessment Assigned Overlay Operator MAXIME Roper DPOA/Assigned Designee Name brother Advance Directives? No Advance Directives on File No History Provided By Patient,Medical Record Has Patient been admitted in last 30 No days? Prior Living Arrangements House Household Members family Type of transporation used prior to Drives own vehicle admit Comment Lives at home and is primary caregiver to her demented father Independent with ADL's Yes Is patient alert and oriented? Yes Caregiver for Another Yes: Demented father Community Services used prior to Physical Therapy admission: Comment Home with outpt PT set up at [facility] PT in [place] Barriers to Discharge No Discharge Plan Home Community Services Physical Therapy,Occupational Therapy Transportation Arrangement Brother to provide transport home after 1300 today Referrals Initiated None needed Whiteboard Updated in Patient Room with Yes name and ext. # of Overlay Operator Review Status In Process Please Provide Date Initial DC 10/11/19 Assessment Was Performed Next Review Type Continued Stay Review Pre-Anesthesia Assessment Start: 09/28/19 08:55 Freq: Status: Complete Protocol: Document 09/28/19 08:55 CAB (Rec: 09/28/19 09:38 [facility] [id number]) Pre-Anesthesia Assessment Patient Information Reviewed Via Phone Assessment Assessment Completed With Patient Primary Care Provider Haley Bills Seen Specialist in Last 12 Months Yes Specialist Seen Orthopedist Primary Language Ghanaian Customer Care Coordinator Required No Height 162.56 cm Weight 112.491 kg Body Mass Index (BMI) 42.5 Hearing Ability Normal Visual Assist Glasses Dentition Type Teeth, Natural Present,Full- Upper Barriers to Learning None Other Aids No Hx Anesthesia Reactions No Hx Family Anesthesia Reaction No Hx Malignant Hyperthermia No Hx Blood Transfusions No Anesthesia Review Requested No alcohol intake current alcohol intake frequency holidays/special occasions only Smoking Status Never smoker Substance Use Type does not use Pain Present Pain Reported Musculoskeletal Symptoms Back Pain,Joint Pain,Limited Range of Motion History of Falling (Recent or History of Yes ) Patient is completely paralyzed or No completely immobile Mental Status Oriented to own ability Is patient on oxygen? No Does patient have KNUTSON/SOB No Hx Sleep Apnea No Currently Taking a Beta Teresita No Can You Climb a Flight of Stairs Without Yes SOB Hx Chest Pain No Hx SOB No Hx Syncope or Dizziness No Anti-Coagulant Therapy No Has a Interactive Designer No Cardiac Testing No Hx Pacemaker/ICD No Pacemaker Rep Required? No Cardiac Clearance Received Not Applicable Diet Type At Home Regular dysphagia No: Hx gastric bypass, no restrictions per pt Urinary Catheter Present No Hx Urinary Self Catheterization No Diabetes No: Pt states Pre-diabetic HgbA1C 6.6 Patient No Lactating No Hx Drug Resistant Organism No Presence of External or Internal Medical No Devices Have you traveled outside the [facility] in the last 30 days? Marital Status Lives With family Prior Living Arrangements House Number of Floors (Floors) One Floor Support System Friend(s),Sibling(s) Does the Patient Have Assistance After Yes: Brother will assist w/ Surgery care at [facility] Patient Discharge Plan Description Return Home Comment Pt advised overnight length of stay per surgeon. Caregiver for Dad Feels Safe in Current Environment Yes Been Physically Hurt or Threatened By a No Person in Current Environment Do you have thoughts of harming yourself None or others? Are you currently considering suicide? No Do you have a plan to hurt yourself or No Plan others? Do You Have Any Spiritual Beliefs That No May Affect Your HC Choices? Do You Have Any Cultural Practices That No May Affect Your HC Choices? Comment Rashid Who Can We Speak to About Patient's Care Family, friends Identifying Code for Release of Patient Declines to issue Information Health Care Proxy/Next of Kin Erich (brother) Health Care Proxy Emergency Contact Name Erich (brother) Emergency Contact Advance Directives? No Power of Associate Automation Engineer Yes Power of Associate Automation Engineer Name Danielle Moore (niece) Power of Associate Automation Engineer PAC Instructions Do not shave/clip surgical site,Durable medical equipment ,Medications to take/avoid, Nasal antibiotic,No ETOH/ petroleum product on skin DOS, NPO,Post-op transportation, Sturdy shoes/comfortable clothes,Do not bring valuables and remove jewelry
--- NOTE | 2019-10-11 11:47 | OT.IP.EVAL ---
Current Diagnoses Complete rotator cuff tear or rupture of right shoulder, not specified as traumatic (10/10/19) Strain of muscle(s) and tendon(s) of the rotator cuff of right shoulder, initial encounter (10/10/19) Surgery Performed Operation Date: 10/10/19 07:45 Actual Procedures p Total Shoulder Arthroplasty - Reverse(Right) - Kj Ayon MD Past Medical History (Last Updated 09/28/19 @ 09:25 by Letha Clay RN) Abdominal hernia (Resolved) History of prosthetic unicompartmental arthroplasty of left knee (Acute) HLD (hyperlipidemia) (Acute) HTN (hypertension) (Acute) Low back pain (Acute) Osteoarthritis (Acute) Pneumonia (Acute ~1973) Pre-diabetes (Acute) Right shoulder pain (Acute) Small bowel obstruction (Acute ~2009) Surgical History (Last Updated 09/28/19 @ 09:25 by Letha Clay RN) H/O gastric bypass (Resolved ~1979) H/O medial meniscus repair of right knee (Resolved) History of bilateral tubal ligation (Acute ~1984) History of hernia repair (Acute) Hx of appendectomy (Acute) Hx of cholecystectomy (Acute ~1977) Hx of colectomy (Acute ~2003) Hx of tonsillectomy (Acute) Hx of varicose vein stripping (Acute) Occupational Therapy Inpatient Evaluation/Re-Eval M1 PT/OT-IP Prior Functional Status Start: 10/10/19 16:41 Freq: NEEDED Status: Active Protocol: Document 10/11/19 11:47 PJM (Rec: 10/11/19 12:10 PJM [id number]) Medical Review Prior Functional Status Medical History Reviewed Yes Diet/Fluid Consistency Regular Communication WNL Mobility and Gait Pt states she is independent ambulation without AD. Activities of Daily Living and IADL's Pt independent with all self care, IADLS, driving Prior Functional Level (Other details) Pt's elderly father lives with her. She assists him with medication management, meal prep and other IADLS. He is physically independent. Pt's brother will stay for 24 hrs after d/c, then friend will assist daily PRN. Social History Household Members family Living Arrangements House Number of Floors (Floors) One Floor Number of Stairs To Enter/Railing? ramp to enter Home Environment Standard Height Toilet,Tub/ Shower Home Equipment Front Wheel Walker,Four Wheel Walker,Quad Cane,Straight Cane ,Tub Transfer Bench,Long Handled Shoe Horn,Breeding Manager Employment Status Retired M2 OT-IP Current Condition Start: 10/11/19 11:46 Freq: Status: Active Protocol: Document 10/11/19 11:47 PJM (Rec: 10/11/19 12:10 PJ [id number]) Occupational Therapy Current Condition Current Condition Evaluation Date 10/11/19 Treatment Diagnosis decreased self care s/p R reverse TSA Diagnosis Onset Date 10/10/19 Post Operative Precautions Shoulder Precautions Sling,Internal Rotation to Body,No External Rotation,No Abduction,Forward Flexion to 90 degrees,Pendulums Weight Bearing Status Weight Bearing Status Non-Weight Bearing Allowed Weight Bearing Amount RUE M3 OT- IP Subjective and Pain Start: 10/11/19 11:46 Freq: Status: Active Protocol: Document 10/11/19 11:47 PJM (Rec: 10/11/19 12:10 PJ [id number]) OT- Subjective Occupational Therapy Visit Type Type Initial Evaluation Visit Start Time 10:50 Visit Stop Time 11:47 Occupational Therapy Visit Comments Patient Comments I have been practicing doing things L handed to get ready for this. Patient/Caregiver Goals to have less R shoulder pain and return to independence with all self care, IADLS, driving OT Pain Assessment Pain When Pain Assessed After Treatment Pain Present Pain Present Pain Reported Location Upper Back Intensity 3 Scale Used Numeric (1 - 10) Description Aching,Acute Pain Behaviors Guarding M4 OT- IP ADL's Start: 10/11/19 11:46 Freq: Status: Active Protocol: Document 10/11/19 11:47 PJM (Rec: 10/11/19 12:10 PJ [id number]) OT IQC-[id number]-Zbeqglh General Evaluation Self-Feeding Ability Independent Areas Needing Assistance Opening Containers Comments OT Self-Feeding Comments pt needs set up to open containers due to unilateral function; pt feeding self with non dominant L hand OT ADL-Grooming General Evaluation Grooming Ability Independent Areas Needing Assistance Combing/Brushing Hair,Face Washing Comments OT Grooming Comments standing at sink OT ADL-Oral Care General Eval Oral Care Ability Independent Comments Oral Care Comments standing at sink OT ADL-Dressing General Eval Upper Body Dressing Ability Minimal Assistance Lower Body Dressing Ability Moderate Assistance Areas Needing Assistance Pants/Shorts,Socks,Shoes Assistive Devices Dressing Assistive Devices Long Handled Shoe Horn,Breeding Manager Comments OT Dressing Comments Pt needs min assist to don front closure shirt and hook puller camisole. Pt able to don pants independently but needs assist with socks and shoes due to tight fit. Pt plans to wear no socks and slip on shoes with no back at home. She states her friend or father can assist with dressing PRN at home. OT ADL-Toileting General Evaluation Toileting Ability Independent Areas Needing Assistance Manage Clothing,Perform Perineal Hygiene Comments OT Toileting Comments provided education re: body mechanics OT ADL-Bathing Devices Bathing Equipment Hand Held Shower Sprayer,Grab Bars Comments OT Bathing Comments Pt declined to shower here. Provided education re: precautions, transfers on/off tub seat and methods to wash and dry under R arm via pendulum position. M5 OT- IP IADL's Start: 10/11/19 11:46 Freq: Status: Active Protocol: Document 10/11/19 11:47 PJM (Rec: 10/11/19 12:10 PJ [id number]) OT-Instrumental Activities of Daily Living Deficits IADL Deficits Identified Deficits Home Safety Awareness Awareness of Need for Assistance at Home Good Awareness Ability to Problem Solve Emergency Able to Problem Solve Situations Medication Management Medication Management No Deficits Identified Money Management Money Management No Deficits Identified Meal Preparation Meal Preparation Caregiver Provides Assist Meal Preparation Comments Pt has planned some simple meals, friend and father can assist PRN. Solar Sales Rep Solar Sales Rep Caregiver Provides Assist Solar Sales Rep Comments Friend to assist PRN Driving Driving Caregiver Provides Assist Driving Comments Pt has arranged for volunteer ride service until able to drive M6 OT- IP Functional Cognition Start: 10/11/19 11:46 Freq: Status: Active Protocol: Document 10/11/19 11:47 PJM (Rec: 10/11/19 12:10 PJ [id number]) Cognitive Factors Limiting Selfcare Function Cognitive Ability Level of Alertness Alert Patient Orientation Name,Age,Birthday,Month,Date, Year,Day of Week,Place, Situation Attention Span Ability Capable of Focused Attention, Capable of Sustained Attention Ability to Follow Commands Able to Follow One Step Commands Problem Solving Ability Needs Assist to Identify Solutions Executive Function Ability Unable to Remember Details Cognitive Comments Cognitive Assessment Comments Pt very verbal and distracts self with conversation at times. Requires repetition of some information. She verbalizes and demonstrates understanding of R TSA precautions. OT- Vision and Hearing OT- Hearing Assessment OT- Hearing Assessment WFL OT- Vision Assessment Visual Acuity WFL Vision Assessment Comments pt denies any recent vision changes M7 OT- IP Mobility and Balance Start: 10/11/19 11:46 Freq: Status: Active Protocol: Document 10/11/19 11:47 PJM (Rec: 10/11/19 12:10 PJM [id number]) OT- Bed Mobility Assessment Rolling Type of Rolling Roll to Left Level of Assistance Independent Supine to Sit Supine to Sit Assist Independent,Head of Bed Elevated Sit to Supine Sit to Supine Assist Independent,Head of Bed Elevated OT-Transfer Assessment Sit to and From Stand Sit to and from Stand Independent Transfers Transfer Ability Independent Technique Transfer Destination Chair Transfer Technique Stand Step Pivot Devices Transfer Assistive Devices None Comments Mobility Comments Pt sleeps on several pillows due to reflux. Pt plans to sleep in recliner for first week. Practiced bed mobility with emphasis on TSA precautions. OT- Gait Assessment Gait Gait Assistance Required: Independent Distance (Feet) 20 Assistive Devices Assistive Device None Comments Gait Ability Comments Pt up in room without a device and has cleared P.T. OT- Balance Assessment Sitting Balance and Reactions Static Sitting Balance Ability Good Dynamic Sitting Balance Ability Good Standing Balance and Reactions Static Standing Balance Ability Good Dynamic Standing Balance Ability Good Comments Other Balance Tests/Deviations/Treatment during standing grooming and : dressing M8 OT- IP Objective Assessments Start: 10/11/19 11:46 Freq: Status: Active Protocol: Document 10/11/19 11:47 PJM (Rec: 10/11/19 12:10 PJM [id number]) OT Gross Range of Motion Upper Extremity Range of Motion Assessment Right Impaired ROM Impairments Pt completed R shoulder pendulum ex 10 reps with good technique using counter for support after further education. R passive shoulder forward flexion to 80 degrees. Pt completed 10 reps of distal AROM ex for shoulder flex (AAROM due to biceps weakness from block), pron/supination, wrist flex/ extension, finger flex/ext. OT Strength Upper Extremity Strength Assessment Right Impaired Shoulder NT Elbow flexion 3-/5 Forearm at least 3/5 pron/sup Wrist at least 3/5 flex/ext Hand 3+/5 Hand Machine Lacer Strength Hand Dominance Right Comments Strength Comments R biceps weakness noted OT- Coordination Assessment Upper Extremity Finger to Nose Test Right UE Impaired Finger Tapping Test Right UE Impaired Comments Coordination Comments RUE functional use impaired by sling. Pt using R hand as light assist for self care tasks within sling. LUE WFL. OT-Muscle Tone Assessment Muscle Tone WNL Yes OT Sensation Assessment Comments Summary Comments R thumb and medial hand still numb per pt. Light touch WNL in other fingers and in hand. Edema Edema Present Edema Comments Pt states B feet are swollen. M9 OT- IP Assessment and Plan Start: 10/11/19 11:46 Freq: Status: Active Protocol: Document 10/11/19 11:47 PJM (Rec: 10/11/19 12:10 PJM [id number]) OT Summary Assessment and Plan Potential Rehabilitation Potential Good Analytic Complexity at Evaluation Low Summary OT Impairments Pain,Range of Motion,Strength, Coordination,Sensation Progress Towards Goals Safe For Discharge Assessment Summary Low complexity OT assessment and all OT education completed in one vist on this 68 yr old female admitted for R reverse TSA. Provided education re: TSA precautions, RUE pendulum/ distal AROM exercises, donning /doffing sling, adapted techniques for upper/lower body dressing, bathing, toileting and car transfers. Pt is very verbal and distracts self with conversation at times. She does verbalize and demonstrate good understanding of adapted ALD techniques after education and practice. Pt plans to d/c home today with brother to stay for first 24 hrs, then assist from friend and her father, who lives with her, PRN. No further OT services needed. Frequency of Treatment Frequency Of Treatment Discharge Discharge Recommendations OT Discharge Recommendations Home with Assistance
[2019-10-11 11:50] VITALS: BP 140/87; PULSE 90; RESP 16; TEMP 37; O2SAT 93
[2019-10-11] MEDS: HYDROCODONE/ACET 5/325 TABLET 2 TAB PO (14:32)
--- NOTE | 2019-10-11 15:33 | PC.NURSE ---
Discharge: Pt feels ready to d/c home. Pt had concerns about her throat, hard to take a deep breath, thighs hurting, back hurting and this was addressed by the [facility]. PT/OT saw pt and they gave her final instructions. Pt has been asking if she can drive and was told she couldn't. Reviewed wound care and d/c instruction sheets. Hemovac d/c earlier and intact. Pt is to remove the gauze over this site in 48hrs but to leave the aquacel in place until her follow up appt. Pt is wearing her sling, has a strong pulse, brisk cap refill to the fingers and can move them. Pt reports she still has some numbness from her block at the shoulder and still has some numbness of the hand. If block hasn't worn off after another 24hrs she was instructed to call the office. Rx given, questions answered. Pt d/c home via auto w/brother.
== END 2019-10-11 14:40 | disposition home or self-care (01) | DRG 940 ==
PROVIDERS: Admitting Provider Orthopaedic Surgery; Family Provider Physician Assistant Medical; PCP Physician Assistant Medical; Visit Provider Orthopaedic Surgery
PROC: 0RRJ00Z Replacement of Right Shoulder Joint with Reverse Ball and Socket Synthetic Substitute, Open Approach (ICD-10-PCS; CPT 23472; principal; 2019-10-10 07:45)
DX: S46.011D Strain of muscle(s) and tendon(s) of the rotator cuff of right shoulder, subsequent encounter (principal); Z68.41 Body mass index [BMI] 40.0-44.9, adult; E66.9 Obesity, unspecified; I10 Essential (primary) hypertension; M81.0 Age-related osteoporosis without current pathological fracture; R73.03 Prediabetes; Z79.84 Long term (current) use of oral hypoglycemic drugs; V86.92XD Unspecified occupant of snowmobile injured in nontraffic accident, subsequent encounter; W22.09XD Striking against other stationary object, subsequent encounter
CPT/HCPCS: 36415; 73020; 82962; 85027; 94760; 97110; 97116; 97162; 97165; 97530; 97535; C1776; J0330; J0690; J1100; J2250; J2405; J2704; J3010

== ENCOUNTER 2020-04-01 12:00 | Emergency (ER) | payer MEDICARE, SELFPAY ==
[2019-10-10 14:21] VITALS: BMI 42.5
[2020-04-01 12:26] VITALS: BP 149/69; PULSE 90; RESP 18; TEMP 37.1; O2SAT 98; BMI 41.1
[2020-04-01 13:22] VITALS: BP 149/69; PULSE 82; RESP 14; O2SAT 96
--- NOTE | 2020-04-01 13:23 | PC.NURSE ---
Patient had sutures placed when I arrived. She reports tingling but no pain.
[2020-04-01] MEDS: TET,DIPH,PERTUSS(ACELL),VAC/PF 0.5 ML SYRINGE IM (13:24)
[2020-04-01] MEDS: LIDOCAINE 1% (PF) 2 ML INJ (13:26)
[2020-04-01 13:37] VITALS: BP 149/69; PULSE 88; RESP 14; TEMP 36.8; O2SAT 96
--- NOTE | 2020-04-01 13:40 | PC.NURSE ---
as pt was leaving, had residual bleeding. Provider re-evaluated and cleared for discharge. Ice pack placed w/ relief.
--- NOTE | 2020-04-01 13:56 | ED_ITS ---
HPI - Wound/Laceration <ANTOINE Rudolph - Last Filed: 04/01/20 14:07> General Chief Complaint: Wound/Laceration Stated Complaint: FELL CUT LIP Time Seen by Provider: 04/01/20 12:20 Source: patient Mode of arrival: Ambulatory Limitations: no limitations History of Present Illness HPI narrative: This is a 69-year-old female, nonsmoker, who presents to ED with lower lip laceration after she tripped on a cobblestone walkway and fell on a rock before coming into ED. Patient denies loose teeth, losing consciousness, mid cervical tenderness, or taking anti coagulants. Patient has history of right shoulder surgery which she completed physical therapy. She takes Aleve twice a day. Patient denies headache, vision change, nausea or vomiting but reports pain on her lower lip. Active bleeding controlled at this time. Related Data Home Medications Medication Instructions Recorded Confirmed cholecalciferol (vitamin D3) 10,000 unit PO DAILY #0 07/08/10 10/10/19 [Vitamin D3] Fish Oil 3 cap PO DAILY #0 04/27/11 10/10/19 losartan 50 mg PO BID #0 04/27/11 10/10/19 metformin [Glucophage] 500 mg PO Q DAY #0 04/27/11 10/10/19 omeprazole 20 mg PO QDAY #0 04/27/11 10/10/19 diclofenac sodium 2 - 4 g TOPICAL QID PRN 05/25/19 09/28/19 Vimal-E 200 mg PO BID 09/28/19 10/10/19 acetaminophen [Tylenol Extra 1,000 mg PO TID 09/28/19 10/10/19 Strength] atorvastatin 20 mg PO BEDTIME 09/28/19 10/10/19 naproxen sodium [Aleve] 440 mg PO BID 09/28/19 10/10/19 progesterone micronized 50 mg PO QAM 09/28/19 10/10/19 Previous Rx's Medication Instructions Recorded aspirin 81 mg PO BID #84 tab 10/11/19 hydrocodone-acetaminophen 1 tab PO Q4HR PRN #50 tab 10/11/19 Allergies Allergy/AdvReac Type Severity Reaction Status Date / Time Sulfa (Sulfonamide Allergy Severe ITCHING Verified 10/10/19 06:54 Antibiotics) ascorbic acid Allergy Intermediate Rash Verified 10/10/19 06:54 Influenza Virus Vaccines AdvReac Severe Hives Verified 10/10/19 07:20 oxycodone [From Percocet] AdvReac Severe Hallucinati Verified 10/10/19 06:54 ng codeine AdvReac Pt unsure, Verified 10/10/19 06:54 thinks possibly nausea Review of Systems <ANTOINE Rudolph - Last Filed: 04/01/20 14:07> Review of Systems Narrative: General: Denies fever, chills, fatigue, malaise, sweats. HEENT: Denies sinus pain, ear pain, sore throat, difficulty swallowing, dizziness. Respiratory: Denies dyspnea, cough, wheezing, hemoptysis, sputum. Cardiovascular: Denies chest pain, palpitations, orthopnea, edema. Gastrointestinal: Denies nausea, vomiting, abdominal pain, diarrhea, constipation, melena. : Denies dysuria, frequency, incontinence, hematuria, urinary retention. Musculoskeletal: Denies weakness, joint pain or bony pain. Skin: See HPI Neurologic: Denies weakness, headache, numbness, change in speech, confusion, seizures, incoordination. Psychiatric: No concerning psychosocial issues. 12-point review of systems is negative except for those stated above. Patient History <ANTOINE Rudolph - Last Filed: 04/01/20 14:07> Medical History Abdominal hernia (Resolved) History of prosthetic unicompartmental arthroplasty of left knee (Acute) HLD (hyperlipidemia) (Acute) HTN (hypertension) (Acute) Low back pain (Acute) Osteoarthritis (Acute) Pneumonia (Acute ~1973) Pre-diabetes (Acute) Right shoulder pain (Acute) Small bowel obstruction (Acute ~2009) Surgical History H/O gastric bypass (Resolved ~1979) H/O medial meniscus repair of right knee (Resolved) H/O shoulder surgery (Acute) History of bilateral tubal ligation (Acute ~1984) History of hernia repair (Acute) Hx of appendectomy (Acute) Hx of cholecystectomy (Acute ~1977) Hx of colectomy (Acute ~2003) Hx of tonsillectomy (Acute) Hx of varicose vein stripping (Acute) Social History household members: family Smoking Status: Never smoker alcohol intake: current Smoking Status: Never smoker alcohol intake frequency: holidays/special occasions only Substance Use Type: does not use Exam <ANTOINE Rudolph - Last Filed: 04/01/20 14:07> Narrative Exam Narrative: General appearance: well developed, well nourished, in no acute distress. Head: normocephalic, atraumatic, no scalp lesions, non-tender. ENT: Bilateral auditory canals and tympanic membranes clear. Hearing grossly intact. Nose without bleeding, purulent discharge. Facial sinuses nontender to palpate. Mucous membrane moist. Throat without erythema, tonsillar hypertrophy or exudate. Uvula in midline, airway patent. No loose teeth noted. Neck/Thyroid: neck supple, full range of motion, no visible masses or meningeal signs. No JVD, non-tender, no-step offs without lymphadenopathy. Skin: Approximately 1 cm deep laceration in right lower lip crossing vermilion border and through inner lip. Warm and dry and appropriate color for ethnicity. Heart: no clubbing, no cyanosis, no edema. S1 and S2 normal. RRR w/o murmurs, clicks, or bruits. Lungs: Breathing even and unlabored. No stridor. No accessory muscles used. Able to speak in full sentences. Chest: normal shape and expansion. Abdomen: non-obese, non-distended. Neurologic: alert and oriented. Cognitive exam, [employer] and PNS grossly intact on informal exam. Psych: good eye contact, normal affect. Initial Vital Signs Initial Vital Signs: Vital Signs Temperature 98.7 F 04/01/20 12:26 Pulse Rate 90 04/01/20 12:26 Respiratory Rate 18 04/01/20 12:26 Blood Pressure 149/69 H 04/01/20 12:26 Pulse Oximetry 98 04/01/20 12:26 <Kitr Bradshaw DO - Last Filed: 04/01/20 14:20> Initial Vital Signs Initial Vital Signs: Vital Signs Temperature 98.7 F 04/01/20 12:26 Pulse Rate 90 04/01/20 12:26 Respiratory Rate 18 04/01/20 12:26 Blood Pressure 149/69 H 04/01/20 12:26 Pulse Oximetry 98 04/01/20 12:26 Procedures <Erasmo ManningMARIA LUZ RodríguezP - Last Filed: 04/01/20 14:07> Laceration Repair Right lower lip laceration: Site: lip Side (If applicable): right (Lower) Size (cm): 1 Description: linear and involves denise border Depth: [id number] Local Anesthetic: lidocaine 1% Amount of anesthesia used (mL): 1.5 Pre-repair: wound explored and irrigated extensively Skin layer closed with: other (Chrome gut) Size (cm): 5-0 Number of sutures: 4 Technique: simple, interrupted Scores <Erasmo ManningMarcos [facility] - Last Filed: 04/01/20 14:07> GCS [place] coma scale eye opening: Spontaneous Madison coma scale verbal response: Orientated Cat coma scale motor response: Obey commands Madison coma scale total score: 15 Course <Erasmo ManningMARIA LUZ RodríguezP - Last Filed: 04/01/20 14:07> Orders Ordered: Discontinued Medications Diphtheria/Tetanus/Acell Pertussis (Adacel) 0.5 ml IM .ONCE ONE Stop: 04/01/20 12:35 Last Admin: 04/01/20 13:24 Dose: 0.5 ml Documented by: TANVIR Lidocaine HCl (Xylocaine 1% (Pf)) 2 ml INJ NOW ONE Stop: 04/01/20 12:42 Last Admin: 04/01/20 13:26 Dose: 2 ml Documented by: TANVIR Vital Signs Vital signs: Vital Signs - 8 hr 04/01/20 12:26 04/01/20 13:22 04/01/20 13:37 Temperature 98.7 F 98.3 F Pulse Rate 90 82 88 Respiratory Rate 18 14 14 Blood Pressure 149/69 H 149/69 H Blood Pressure [Left Arm] 149/69 H Pulse Oximetry 98 96 96 <Kirt Bradshaw DO - Last Filed: 04/01/20 14:20> Orders Ordered: Discontinued Medications Diphtheria/Tetanus/Acell Pertussis (Adacel) 0.5 ml IM .ONCE ONE Stop: 04/01/20 12:35 Last Admin: 04/01/20 13:24 Dose: 0.5 ml Documented by: TANVIR Lidocaine HCl (Xylocaine 1% (Pf)) 2 ml INJ NOW ONE Stop: 04/01/20 12:42 Last Admin: 04/01/20 13:26 Dose: 2 ml Documented by: TANVIR Vital Signs Vital signs: Vital Signs - 8 hr 04/01/20 12:26 04/01/20 13:22 04/01/20 13:37 Temperature 98.7 F 98.3 F Pulse Rate 90 82 88 Respiratory Rate 18 14 14 Blood Pressure 149/69 H 149/69 H Blood Pressure [Left Arm] 149/69 H Pulse Oximetry 98 96 96 [facility] - Wound/Laceration <MARIA LUZ RudolphP - Last Filed: 04/01/20 14:07> Differential Diagnosis Differential diagnosis: Likely laceration and other (Fall) Medical Records Attestation: I reviewed the patient's medical records. [facility] Narrative Medical decision making narrative: Patient is alert and oriented x3. There was no loss of consciousness. Patient is able to flex, extend, rotate neck without pain. Patient is not currently taking anticoagulants. There was no loose teeth appreciated. Lacerations involving vermilion border and through and through in right lower lip. Consulted Dr. Bradshaw for complicated laceration and repair. Dr. Bradshaw kindly repaired the suture for this patient. Discussed wound care and soft diet with rinsing inner lip laceration after each eating with patient to prevent infection. Return precautions were discussed with patient. Patient advised to follow-up with primary care physician in 2 days for wound recheck. Patient informed the observable suture which does not require removal. Advised to take Tylenol and Motrin as needed for discomfort along using cool pack on affected site next couple of days to help with swelling and discomfort. Patient verbalized understanding and in agreement with treatment plan. <Kirt Bradshaw DO - Last Filed: 04/01/20 14:20> [facility] Narrative Medical decision making narrative: I did evaluate this patient with the APC and performed the laceration repair as described above. Discharge Plan Departure Patient Disposition: Home Clinical Impression: Laceration of lip Qualifiers: Encounter type: initial encounter Qualified Code(s): S01.511A - Laceration without foreign body of lip, initial encounter Fall Qualifiers: Encounter type: initial encounter Qualified Code(s): W19.XXXA - Unspecified fall, initial encounter Discharge Date/Time: 04/01/20 13:39 Instructions: DI for Laceration Repair Activity Restrictions/Additional Instructions: You have been diagnosed with [about 1 cm lower lip laceration crossing vermilion border which has been repaired with dissolvable suture x 4. You have received Tdap vaccination today.]. What to do: *Take your medications as directed. You can use cool pack for next couple of days to help with swelling and discomfort. You can take [id number] Tylenol and/ ibuprofen/Aleve/Motrin as needed for discomfort. Please eat soft food until laceration heals. *Follow up with your primary care provider in 2-3 days, call for an appointment. Let them know you were seen in the ED and that we asked you to be seen in follow up. *Return to ED if you have any new, worsening, or concerning symptoms, such as [chest pain, breathing difficulty, unable to tolerate fluids, increasing redness/warmth/pain/purulent discharge or fever]. Prescriptions: No Action cholecalciferol (vitamin D3) [Vitamin D3] 5,000 unit Tablet 10,000 unit PO DAILY Qty: 0 RF: 0 losartan 25 MG tablet 50 mg PO BID Qty: 0 RF: 0 metformin [Glucophage] 500 MG tablet 500 mg PO Q DAY Qty: 0 RF: 0 omeprazole 20 MG capsule,delayed release(DR/EC) 20 mg PO QDAY Qty: 0 RF: 0 Fish Oil 360 mg-144 mg- 216 mg-1,200 mg Capsule,Delayed Release(Dr/Ec) 3 cap PO DAILY Qty: 0 RF: 0 diclofenac sodium 1 % gel 2 - 4 g topical QID PRN (Reason: pain) RF: 0 atorvastatin 20 mg Tablet 20 mg PO BEDTIME RF: 0 progesterone micronized 100 mg Capsule 50 mg PO QAM RF: 0 acetaminophen [Tylenol Extra Strength] 500 mg Tablet 1,000 mg PO TID RF: 0 naproxen sodium [Aleve] 220 mg Capsule 440 mg PO BID RF: 0 Vimal-E 200 mg Tablet 200 mg PO BID RF: 0 aspirin 81 mg Tablet,Delayed Release (Dr/Ec) 81 mg PO BID Qty: 84 RF: 0 hydrocodone-acetaminophen 5-325 mg Tablet 1 tab PO Q4HR PRN (Reason: Pain, Moderate (4-6)) Qty: 50 RF: 0 Referrals: Haley Bills PA-C [Primary Care Provider] -
== END 2020-04-01 13:39 | disposition home or self-care (01) ==
PROVIDERS: Emergency Provider Nurse Practitioner Family; Family Provider Physician Assistant Medical; PCP Physician Assistant Medical
DX: S01.511A Laceration without foreign body of lip, initial encounter (principal); W19.XXXA Unspecified fall, initial encounter; Z23 Encounter for immunization
CPT/HCPCS: 12011; 90471; 99283; 90715

== ENCOUNTER → 2020-07-23 15:43 | Outpatient (CLI) | payer MEDICARE, SELFPAY ==
[2019-10-10 14:21] VITALS: BMI 42.5
--- NOTE | 2020-07-23 15:47 | DI.MRI.S_ITS ---
PROCEDURE: MR LUMBAR SPINE WO CON INDICATIONS: LOW BACK PAIN TECHNIQUE: Noncontrast sagittal T1 spin echo and T2 fast echo, sagittal STIR, axial T1 and T2 fast spin echo through the lumbar spine. In cases with scoliosis, additional coronal T2 fast spin echo may be performed. COMPARISON: None. FINDINGS: Image quality: Excellent. Alignment and Curvature: There is loss of the expected lumbar lordosis. There is 28.5? left convex scoliosis centered at L3-4. Bone Marrow: Marrow is of normal overall signal. No acute vertebral body compression fractures. Reactive endplate changes are present at multiple levels. Spinal Cord: Conus medullaris terminates at the T12 level. Visualized cord demonstrates normal signal and size. Paraspinous Soft Tissues: No paravertebral masses. L1-L2: Severe disc desiccation and height loss. Severe active end-plate changes. Moderate facet ligamentum flavum hypertrophy. No canal stenosis. Severe left and moderate right foraminal stenosis. L2-L3: Severe disc desiccation and height loss. Severe active end-plate changes. Severe facet ligamentum flavum hypertrophy. Mild canal stenosis. Severe right and mild left foraminal stenosis. L3-L4: Severe disc desiccation and height loss. Broad-based disc bulge. Severe facet ligamentum flavum hypertrophy. Mild canal stenosis. Severe right neural foraminal narrowing. No left foraminal stenosis. L4-L5: Severe disc desiccation and height loss. Severe facet and ligamentum flavum hypertrophy. Moderate canal stenosis. Moderate bilateral foraminal narrowing. L5-S1: Moderate disc desiccation and height loss. Moderate facet sclerosis. Mild bilateral foraminal narrowing. IMPRESSION: 1. Overall severe disc desiccation, height loss, and reactive endplate changes throughout the lumbar spine. No acute compression deformities 2. Left convex scoliosis centered at L3-4. 3. Multilevel broad-based disc bulges and facet and ligamentum flavum hypertrophy with resultant mild canal stenosis at L1-2 and L3-4, and moderate canal stenosis at L4-5. 4. Severe neural foraminal narrowing on the left at L1-2 and severe neural foraminal narrowing on the right at L2-3. Moderate foraminal stenosis on the right at L1-2 and bilaterally at L4-5. Dictated by: Elizabeth Ugalde M.D. on 07/23/2020 at 17:02 Approved by: Elizabeth Ugalde M.D. on 07/23/2020 at 17:08
== END ==
PROVIDERS: Family Provider Physician Assistant Medical; PCP Physician Assistant Medical; Referring Provider Physician Assistant Medical; Visit Provider Physician Assistant Medical
DX: M51.26 Other intervertebral disc displacement, lumbar region (principal); M48.061 Spinal stenosis, lumbar region without neurogenic claudication; M41.86 Other forms of scoliosis, lumbar region
CPT/HCPCS: 72148

== ENCOUNTER → 2021-10-29 10:03 | Outpatient (CLI) | payer MEDICARE, SELFPAY ==
[2019-10-10 14:21] VITALS: BMI 42.5
--- NOTE | 2021-10-29 10:57 | DI.CT.S_ITS ---
PROCEDURE: CT HEAD/BRAIN WO CON INDICATIONS: HEADACHE, HISTORY OF FALLS TECHNIQUE: Noncontrast 4.5 mm thick angled axial sections acquired from the foramen magnum to the vertex, with coronal and sagittal reformats. For radiation dose reduction, the following was used: automated exposure control, adjustment of mA and/or kV according to patient size. COMPARISON: [facility], CT, HEAD WITHOUT CONTRAST, 12/12/2008, 12:05. FINDINGS: Image quality: Excellent. CSF spaces: Basal cisterns are patent. No extra-axial fluid collections. Ventricles are normal in size and shape. Brain: No midline shift. No intracranial masses or hemorrhage. Mai-white matter interface is normal. Moderate cerebral and cerebellar volume loss with multifocal white matter chronic ischemic change noted. Skull and face: Calvarium and visualized facial bones are intact, without suspicious lesions. Incidental hyperostosis frontalis interna noted. Bilateral intraocular lens replacements noted. Sinuses: Visualized sinuses and mastoids are clear. IMPRESSION: Atrophy and chronic ischemic change without acute hemorrhage or mass effect Approved by: Rob Bermudez M.D. on 10/29/2021 at 12:59
== END ==
PROVIDERS: Family Provider Physician Assistant Medical; PCP Physician Assistant Medical; Referring Provider Physician Assistant Medical; Visit Provider Physician Assistant Medical
DX: R51.9 Headache, unspecified (principal); Z91.81 History of falling
CPT/HCPCS: 70450

== ENCOUNTER 2021-10-30 22:14 | Emergency (ER) | payer MEDICARE, SELFPAY ==
[2019-10-10 14:21] VITALS: BMI 42.5
[2021-10-30 22:20] VITALS: BP 142/80; PULSE 100; RESP 20; TEMP 36.6; O2SAT 96
[2021-10-31 01:02] VITALS: BP 179/94
[2021-10-31 01:03] VITALS: PULSE 86; O2SAT 96
--- NOTE | 2021-10-31 01:18 | ED.EPISTAXIS ---
HPI - Epistaxis General Chief complaint: Nasal Problem Stated complaint: Nose Bleed Time Seen by Provider: 10/31/21 01:07 Source: patient Mode of arrival: Wheelchair History of Present Illness HPI Narrative: Patient is a 70-year-old female with history of hyperlipidemia, hypertension on aspirin presenting with epistaxis. She states she went to get some Cheerios when suddenly she started having a nosebleed. She did use a nasal spray for some congestion 30 minutes prior, which she typically does. She held a towel over her nose for about 30 minutes the bleeding had stopped by the time she came to the emergency department and was given a clamp. No recurrence of bleeding. Related Data Home Medications Medication Instructions Recorded Confirmed cholecalciferol (vitamin D3) 125 10,000 unit PO DAILY #0 07/08/10 10/10/19 mcg (5,000 unit) tablet (Vitamin D3) losartan 25 mg tablet 50 mg PO BID #0 04/27/11 10/10/19 metformin 500 mg tablet 500 mg PO Q DAY #0 04/27/11 10/10/19 (Glucophage) omega-3 360 mg-dha 144 mg-epa 216 3 cap PO DAILY #0 04/27/11 10/10/19 mg-fish oil 1,200 mg capsule,del rel (Fish Oil) omeprazole 20 mg capsule,delayed 20 mg PO QDAY #0 04/27/11 10/10/19 release diclofenac sodium 1 % topical gel 2 - 4 g TOPICAL QID PRN 05/25/19 09/28/19 acetaminophen 500 mg tablet 1,000 mg PO TID 09/28/19 10/10/19 (Tylenol Extra Strength) atorvastatin 20 mg tablet 20 mg PO BEDTIME 09/28/19 10/10/19 naproxen sodium 220 mg capsule 440 mg PO BID 09/28/19 10/10/19 (Aleve) progesterone micronized 100 mg 50 mg PO QAM 09/28/19 10/10/19 capsule s-adenosylmethionine 200 mg tablet 200 mg PO BID 09/28/19 10/10/19 (Vimal-E) Previous Rx's Medication Instructions Recorded aspirin 81 mg tablet,delayed 81 mg PO BID #84 tab 10/11/19 release hydrocodone 5 mg-acetaminophen 325 1 tab PO Q4HR PRN #50 tab 10/11/19 mg tablet Allergies Allergy/AdvReac Type Severity Reaction Status Date / Time Sulfa (Sulfonamide Allergy Severe ITCHING Verified 10/10/19 06:54 Antibiotics) ascorbic acid Allergy Intermediate Rash Verified 10/10/19 06:54 Influenza Virus Vaccines AdvReac Severe Hives Verified 10/10/19 07:20 oxycodone [From Percocet] AdvReac Severe Hallucinati Verified 10/10/19 06:54 ng codeine AdvReac Pt unsure, Verified 10/10/19 06:54 thinks possibly nausea Review of Systems Review of Systems Narrative: GENERAL: Denies chills, fatigue, malaise, fever, sweats, travel HEENT: See HPI RESPIRATORY: Denies dyspnea, cough, wheezing, hemoptysis, sputum. CARDIOVASCULAR: Denies chest pain, palpitations, orthopnea, edema GASTROINTESTINAL: Denies nausea, vomiting, abdominal pain, diarrhea, constipation, melena. : Denies dysuria, frequency, incontinence, hematuria, urinary retention, flank pain. MUSCULOSKELETAL: Denies weakness, joint pain, or bony pain SKIN: No rash, no erythema, no pruritus NEUROLOGIC: Denies weakness, dizziness, headache, numbness, change in speech, confusion PSYCHIATRIC: No concerning psychosocial issues. 12 point review of systems is negative except for those stated above and HPI Patient History Medical History (Updated 10/31/21 @ 01:20 by Fauzia Olmedo DO) Abdominal hernia History of prosthetic unicompartmental arthroplasty of left knee HLD (hyperlipidemia) HTN (hypertension) Low back pain Osteoarthritis Pneumonia (~1973) Pre-diabetes Right shoulder pain Small bowel obstruction (~2009) Surgical History H/O gastric bypass (~1979) H/O medial meniscus repair of right knee H/O shoulder surgery History of bilateral tubal ligation (~1984) History of hernia repair Hx of appendectomy Hx of cholecystectomy (~1977) Hx of colectomy (~2003) Hx of tonsillectomy Hx of varicose vein stripping Social History household members: family Smoking Status: Never smoker alcohol intake: current Smoking Status: Never smoker alcohol intake frequency: holidays/special occasions only Substance Use Type: does not use Exam Initial Vital Signs Initial Vital Signs: Vital Signs Temperature 98 F 10/30/21 22:20 Pulse Rate 100 H 10/30/21 22:20 Respiratory Rate 20 10/30/21 22:20 Blood Pressure 142/80 H 10/30/21 22:20 Pulse Oximetry 96 10/30/21 22:20 GENERAL: Well-appearing, well-nourished and in no acute distress. NOSE: No epistaxis difficult to tell which side it was bleeding from, patient says the right nares CARDIOVASCULAR: peripheral pulses in tact, cap refill <2 sec RESPIRATORY: No respiratory distress, speaks in full sentences without difficulty EXTREMITIES: Normal range of motion, no clubbing or edema. Neurovascularly intact NEUROLOGICAL: Cranial nerves II through XII grossly intact. Normal gait and speech. SKIN: Warm, dry, no petechiae, no rashes or lesions. Course Vital Signs Vital signs: Vital Signs - 8 hr 10/30/21 22:20 10/31/21 01:02 10/31/21 01:03 Temperature 98 F Pulse Rate 100 H 86 Respiratory Rate 20 Blood Pressure 142/80 H 179/94 H Pulse Oximetry 96 96 MDM - Epistaxis MDM Narrative Medical decision making narrative: No evidence bleeding at this time. Recommend moisture with either humidifier or ointment supportive care. Patient is provided home Education in regards to controlling epistaxis at home and when to return to ED. I discussed all findings with the patient, Education has been performed regarding treatment plan, diagnosis, warning signs and symptoms and all concerns have been addressed. Verbally agree with and understood all of the above. Discharge Plan Departure Patient Disposition: Home Clinical Impression: Epistaxis Instructions: DI for Nosebleed Activity Restrictions/Additional Instructions: *You have been diagnosed with epistaxis *What to do: At this time is difficult to tell what her nosebleed started from possibly the nasal spray versus dry air. He may try some moisture such as Vaseline or ointment in her nose. If bleeding should reoccur apply pressure to your nose with clamp or hand keep pressure on it for 30-60 minutes. Tilt head forward. *Continue to take medications as directed *Follow up with your primary care provider in 2-3 days or call [phone] *Return to ER if you should have persistent nose bleeding despite appropriate pressure, or any new, worsening or concerning symptoms Prescriptions: No Action cholecalciferol (vitamin D3) [Vitamin D3] 5,000 unit Tablet 10,000 unit PO DAILY Qty: 0 0RF losartan 25 MG tablet 50 mg PO BID Qty: 0 0RF metformin [Glucophage] 500 MG tablet 500 mg PO Q DAY Qty: 0 0RF omeprazole 20 MG capsule,delayed release(DR/EC) 20 mg PO QDAY Qty: 0 0RF Fish Oil 360 mg-144 mg- 216 mg-1,200 mg Capsule,Delayed Release(Dr/Ec) 3 cap PO DAILY Qty: 0 0RF Rx Instructions: 2 tabs qam, 1 tab noon diclofenac sodium 1 % gel 2 - 4 g topical QID PRN (Reason: pain) 0RF Label Comments: apply 2 to 4 grams to affected area four times a day if needed for pain atorvastatin 20 mg Tablet 20 mg PO BEDTIME 0RF progesterone micronized 100 mg Capsule 50 mg PO QAM 0RF acetaminophen [Tylenol Extra Strength] 500 mg Tablet 1,000 mg PO TID 0RF naproxen sodium [Aleve] 220 mg Capsule 440 mg PO BID 0RF Vimal-E 200 mg Tablet 200 mg PO BID 0RF aspirin 81 mg Tablet,Delayed Release (Dr/Ec) 81 mg PO BID Qty: 84 0RF hydrocodone-acetaminophen 5-325 mg Tablet 1 tab PO Q4HR PRN (Reason: Pain, Moderate (4-6)) Qty: 50 0RF Referrals: Haley Bills PA-C [Primary Care Provider] -
== END 2021-10-31 01:29 | disposition home or self-care (01) ==
PROVIDERS: Emergency Provider Emergency Medicine; Family Provider Physician Assistant Medical; PCP Physician Assistant Medical
DX: R04.0 Epistaxis (principal); Z79.82 Long term (current) use of aspirin
CPT/HCPCS: 99281

== ENCOUNTER 2022-02-22 09:24 | Emergency (ER) | payer MEDICARE, SELFPAY ==
[2019-10-10 14:21] VITALS: BMI 42.5
[2022-02-22] VITALS (8 sets, daily range): BP systolic 98–116; BP diastolic 60–68; PULSE 67–117; RESP 19; TEMP 35.7; O2SAT 93–97
[2022-02-22 09:59] LABS: Add Manual Diff / Slide Review NO; Basophils Absolute Auto 0 /uL (0-100); Basophils Percent Auto 0.4 % (0-2); Eosinophils Absolute Auto 100 /uL (0-450); Eosinophils Percent Auto 1.4 % (2-4); Hemoglobin 15.7 g/dL (12.0-16.0); Lymphocytes Absolute Auto 1500 /uL (1100-4500); Lymphocytes Percent Auto 15.5 % (25-40); Mean Corpuscular HGB Conc 33.5 % (30-36); Mean Corpuscular Hemoglobin 30.8 PG (26-34); Mean Corpuscular Volume 91.9 fL (80-100); Monocytes Absolute Auto 700 /uL (0-900); Monocytes Percent Auto 7.4 % (3-14); Neutrophils Absolute Auto 7200 /uL (1500-7000); Neutrophils Percent Auto 75.3 % (50-75); Platelet Count 325 X10^3/uL (150-400); Red Blood Cell Count 5.11 X10^6/uL (4.0-5.2); Red Cell Distribution Width 13.8 % (11.6-14.8); White Blood Cell Count 9.5 X10^3/uL (4.5-11.0)
--- NOTE | 2022-02-22 09:59 | ED.GENADULT ---
HPI - General Adult General Chief complaint: Nausea/Vomiting/Diarrhea Stated complaint: vomiting for 4 days, dehydrated Time Seen by Provider: 02/22/22 09:38 Source: patient Mode of arrival: Wheelchair Limitations: no limitations History of Present Illness HPI narrative: 71-year-old female history of diabetes. Is on metformin. One month ago underwent a colonoscopy. This was a routine colonoscopy. She states that she was told she did not need to come back for 10 years. Approximately 10 days ago she had an episode of diarrhea. She then had contact with her primary doctor. Her hemoglobin A1c was elevated. She was increased on her metformin to 1000 mg 2 times a day. She was also started on an antibiotic because of some sinus issues. After being on that for couple days she started to have nausea and vomiting. The diarrhea has stopped. She has not taken any of her medications because she states whenever she drinks anything she starts to vomit. She is having some abdominal cramping. No fevers. No chest pain. No shortness of breath. No headache. No skin rashes. Related Data Home Medications Medication Instructions Recorded Confirmed cholecalciferol (vitamin D3) 125 10,000 unit PO DAILY #0 07/08/10 10/10/19 mcg (5,000 unit) tablet (Vitamin D3) losartan 25 mg tablet 50 mg PO BID #0 04/27/11 10/10/19 metformin 500 mg tablet 500 mg PO Q DAY #0 04/27/11 10/10/19 (Glucophage) omega-3 360 mg-dha 144 mg-epa 216 3 cap PO DAILY #0 04/27/11 10/10/19 mg-fish oil 1,200 mg capsule,del rel (Fish Oil) omeprazole 20 mg capsule,delayed 20 mg PO QDAY #0 04/27/11 10/10/19 release diclofenac sodium 1 % topical gel 2 - 4 g TOPICAL QID PRN 05/25/19 09/28/19 acetaminophen 500 mg tablet 1,000 mg PO TID 09/28/19 10/10/19 (Tylenol Extra Strength) atorvastatin 20 mg tablet 20 mg PO BEDTIME 09/28/19 10/10/19 naproxen sodium 220 mg capsule 440 mg PO BID 09/28/19 10/10/19 (Aleve) progesterone micronized 100 mg 50 mg PO QAM 12/05/19 12/17/19 capsule s-adenosylmethionine 200 mg tablet 200 mg PO BID 09/28/19 10/10/19 (Vimal-E) Previous Rx's Medication Instructions Recorded aspirin 81 mg tablet,delayed 81 mg PO BID #84 tab 10/11/19 release hydrocodone 5 mg-acetaminophen 325 1 tab PO Q4HR PRN #50 tab 10/11/19 mg tablet ondansetron 4 mg disintegrating 4 mg PO Q8H PRN #14 tab 02/22/22 tablet Allergies Allergy/AdvReac Type Severity Reaction Status Date / Time Sulfa (Sulfonamide Allergy Severe ITCHING Verified 10/10/19 06:54 Antibiotics) ascorbic acid Allergy Intermediate Rash Verified 10/10/19 06:54 Influenza Virus Vaccines AdvReac Severe Hives Verified 10/10/19 07:20 oxycodone [From Percocet] AdvReac Severe Hallucinati Verified 10/10/19 06:54 ng codeine AdvReac Pt unsure, Verified 10/10/19 06:54 thinks possibly nausea Review of Systems Review of Systems ROS Unobtainable: All systems reviewed & are unremarkable except as noted in HPI and below Patient History Medical History (Updated 02/22/22 @ 12:29 by Kirt Bradshaw DO) Abdominal hernia History of prosthetic unicompartmental arthroplasty of left knee HLD (hyperlipidemia) HTN (hypertension) Low back pain Osteoarthritis Pneumonia (~1973) Pre-diabetes Right shoulder pain Small bowel obstruction (~2009) Surgical History H/O gastric bypass (~1979) H/O medial meniscus repair of right knee H/O shoulder surgery History of bilateral tubal ligation (~1984) History of hernia repair Hx of appendectomy Hx of cholecystectomy (~1977) Hx of colectomy (~2003) Hx of tonsillectomy Hx of varicose vein stripping Social History household members: family Smoking Status: Never smoker alcohol intake: current Smoking Status: Never smoker alcohol intake frequency: holidays/special occasions only Substance Use Type: does not use Exam Initial Vital Signs Initial Vital Signs: Vital Signs Temperature 96.3 F L 02/22/22 09:35 Pulse Rate 67 02/22/22 09:35 Respiratory Rate 19 02/22/22 09:35 Blood Pressure 112/65 02/22/22 09:35 Pulse Oximetry 95 02/22/22 09:35 Const General: cooperative, well groomed, No acute distress and No ill appearing HENMT Head: normal to inspection and normocephalic Resp Effort & Inspection: normal respiratory effort Auscultation: clear to auscultation bilaterally Cardio Rate: tachycardic Rhythm: regular rhythm GI Inspection: normal to inspection Palpation: soft and No tender Skin General: no rashes or lesions noted Neuro General: patient alert, patient awake, patient oriented x3 and moves all extremities Speech: speech normal Extrem General: normal to inspection and capillary refill normal Psych Appearance: grossly normal and well kempt Course Orders Ordered: ED Orders 02/22/22 09:50 Complete Blood Count AUTO DIFF Stat Comprehensive Metabolic Panel Stat Lipase Stat 02/22/22 10:11 EKG-12 Lead Stat Discontinued Medications Al Hydrox/Mg Hydrox/Simethicone (Mag Hydrox/Alum/Simeth 30 Ml Udc) 30 ml PO NOW ONE Stop: 02/22/22 11:10 Last Admin: 02/22/22 11:21 Dose: 30 ml Documented by: FRANKLIN Sodium Chloride (Normal Saline 0.9%) 1,000 mls @ 1,000 mls/hr IV BOLUS ONE Stop: 02/22/22 10:39 Last Infusion: 02/22/22 12:59 Dose: 0 mls/hr Documented by: Admin: 02/22/22 10:02 Dose: 1,000 mls/hr Documented by: FRANKLIN Vital Signs Vital signs: Vital Signs - 8 hr 02/22/22 11:00 02/22/22 11:30 02/22/22 12:00 Pulse Rate 116 H 112 H 116 H Blood Pressure 108/64 98/60 116/61 Pulse Oximetry 96 97 95 02/22/22 12:30 Pulse Rate 111 H Blood Pressure 105/61 Pulse Oximetry 96 Medical Decision Making Lab Data Lab results reviewed: Yes I reviewed the patient's lab results. Result diagrams: 02/22/22 09:50 02/22/22 09:50 Labs: Lab Results 02/22/22 02/22/22 Range/Units 09:50 09:50 WBC 9.5 (4.5-11.0) X10^3/uL RBC 5.11 (4.0-5.2) X10^6/uL Hgb 15.7 (12.0-16.0) g/dL Hct 47.0 H (36-46) % MCV 91.9 (80-100) fL MCH 30.8 (26-34) PG MCHC 33.5 (30-36) % RDW 13.8 (11.6-14.8) % Plt Count 325 (150-400) X10^3/uL Neut % (Auto) 75.3 H (50-75) % Lymph % (Auto) 15.5 L (25-40) % Hardeman % (Auto) 7.4 (3-14) % Eos % (Auto) 1.4 L (2-4) % Baso % (Auto) 0.4 (0-2) % Neut # (Auto) 7200 H (4340-5749) /uL Lymph # (Auto) 1500 (1067-0901) /uL Hardeman # (Auto) 700 (0-900) /uL Eos # (Auto) 100 (0-450) /uL Baso # (Auto) 0 (0-100) /uL Sodium 139 (137-145) mmol/L Potassium 4.1 (3.4-5.1) mmol/L Chloride 100 (98-107) mmol/L Carbon Dioxide 25 (22-32) mmol/L BUN 33 H (7-17) mg/dL Creatinine 1.21 H (0.52-1.04) mg/dL Estimated GFR 48 L (>60) mL/min BUN/Creatinine Ratio 27.3 H (6-22) Glucose 190 H (80-110) mg/dL Calcium 10.1 (8.4-10.2) mg/dL Total Bilirubin 1.3 (0.2-1.3) mg/dL AST 29 (14-36) IU/L ALT 22 (<35) IU/L Alkaline Phosphatase 90 (38-126) U/L Total Protein 7.8 (6.3-8.2) g/dL Albumin 4.6 (3.5-5.0) g/dL Globulin 3.2 (1.7-4.1) g/dL Albumin/Globulin Ratio 1.4 (1.0-2.8) Lipase 54 (23-300) U/L Point of Care Testing Glucose POC 183 Point of care testing: Point of Care Testing Glucose POC 183 ECG Data Attestation: I personally reviewed and interpreted this ECG as follows: Interpretation: Sinus tachycardia Ventricular rate 114 Left axis deviation Normal QRS normal QTC No ST T wave changes MDM Narrative Medical decision making narrative: Patient has a benign exam. Labs unremarkable. Vital signs unremarkable. Tolerating oral intake. I do feel that we can hold on any further radiologic studies for now. Will send home with nausea medication. I have low suspicion for any acute intra-abdominal surgical pathology given her presentation. Send home with nausea medication. Encouraged fluid intake. She was given return precautions. She expressed understanding and agreement. Discharge Plan Departure Patient Disposition: Home Clinical Impression: Vomiting Instructions: DI for Nausea -- Adult, DI for Vomiting -- Adult Prescriptions: New ondansetron 4 mg tablet,disintegrating 4 mg PO Q8H PRN (Reason: nausea and vomiting) Qty: 14 0RF No Action cholecalciferol (vitamin D3) [Vitamin D3] 5,000 unit Tablet 10,000 unit PO DAILY Qty: 0 0RF losartan 25 MG tablet 50 mg PO BID Qty: 0 0RF metformin [Glucophage] 500 MG tablet 500 mg PO Q DAY Qty: 0 0RF omeprazole 20 MG capsule,delayed release(DR/EC) 20 mg PO QDAY Qty: 0 0RF Fish Oil 360 mg-144 mg- 216 mg-1,200 mg Capsule,Delayed Release(Dr/Ec) 3 cap PO DAILY Qty: 0 0RF Rx Instructions: 2 tabs qam, 1 tab noon diclofenac sodium 1 % gel 2 - 4 g topical QID PRN (Reason: pain) 0RF Label Comments: apply 2 to 4 grams to affected area four times a day if needed for pain atorvastatin 20 mg Tablet 20 mg PO BEDTIME 0RF progesterone micronized 100 mg Capsule 50 mg PO QAM 0RF acetaminophen [Tylenol Extra Strength] 500 mg Tablet 1,000 mg PO TID 0RF naproxen sodium [Aleve] 220 mg Capsule 440 mg PO BID 0RF Vimal-E 200 mg Tablet 200 mg PO BID 0RF aspirin 81 mg Tablet,Delayed Release (Dr/Ec) 81 mg PO BID Qty: 84 0RF hydrocodone-acetaminophen 5-325 mg Tablet 1 tab PO Q4HR PRN (Reason: Pain, Moderate (4-6)) Qty: 50 0RF Referrals: Haley Bills PA-C [Primary Care Provider] -
[2022-02-22] MEDS: SODIUM CHLORIDE 0.9% 1,000 ML 1000 ML IV (10:02)
[2022-02-22 10:12] LABS: Alanine Aminotransferase 22 IU/L (<35); Albumin 4.6 g/dL (3.5-5.0); Albumin Globulin Ratio 1.4 (1.0-2.8); Alkaline Phosphatase 90 U/L (38-126); Aspartate Aminotransferase 29 IU/L (14-36); BUN Creatinine Ratio 27.3 (6-22); Bilirubin Total 1.3 mg/dL (0.2-1.3); Blood Urea Nitrogen 33 mg/dL (7-17); Calcium 10.1 mg/dL (8.4-10.2); Carbon Dioxide 25 mmol/L (22-32); Chloride 100 mmol/L (98-107); Estimated Glomerular Filt Rate 48 mL/min (>60); Globulin 3.2 g/dL (1.7-4.1); Glucose 190 mg/dL (80-110); HEMOLYSIS < 15 (0-50); Lipase 54 U/L (23-300); Potassium 4.1 mmol/L (3.4-5.1); Sodium 139 mmol/L (137-145); Total Protein 7.8 g/dL (6.3-8.2)
[2022-02-22] MEDS: MAG HYDROX/ALUM/SIMETH 30 ML UDC PO (11:21)
== END 2022-02-22 13:13 | disposition home or self-care (01) ==
PROVIDERS: Emergency Provider Emergency Medicine; Family Provider Physician Assistant Medical; PCP Physician Assistant Medical
DX: R11.2 Nausea with vomiting, unspecified (principal); R19.7 Diarrhea, unspecified; R10.9 Unspecified abdominal pain; R00.0 Tachycardia, unspecified
CPT/HCPCS: 36415; 80053; 82962; 83690; 85025; 93005; 93010; 99283; 99284

== ENCOUNTER → 2022-05-27 17:22 | Outpatient (CLI) | payer MEDICARE, SELFPAY ==
[2019-10-10 14:21] VITALS: BMI 42.5
--- NOTE | 2022-05-27 | DI.MRI.S_ITS ---
PROCEDURE: MR HEAD/BRAIN WO/W CON INDICATIONS: TIA TECHNIQUE: Noncontrast axial T1 spin echo, axial T2 fast spin echo, sagittal and axial FLAIR, coronal T2 fast spin echo, axial gradient echo, axial diffusion and ADC through the brain. After the administration of contrast, axial and coronal and sagittal T1 spin echo with fat saturation through the brain. COMPARISON: [facility], MR, MR ANGIO HEAD WO CON, 05/27/2022, 17:43. [facility], CT, CT HEAD/BRAIN WO CON, 10/29/2021, 10:40. FINDINGS: Image quality: Excellent. CSF spaces: Basal cisterns are patent. No extra-axial fluid collections. Ventricles are normal in size and shape. Brain: No midline shift. No intracranial bleeds or masses. No abnormal intracranial enhancement. There is cerebral volume loss for age. There is periventricular white matter chronic small vessel ischemic change. The brainstem appears normal. Diffusion-weighted images demonstrate no acute ischemic insults. No chronic ischemic insults. Normal intravascular flow voids are present. Skull and face: Calvarial marrow is normal in signal. Orbits appear normal. Note is made of bilateral lens replacements. Sinuses: Sinuses and mastoids appear clear. IMPRESSION: No findings of acute or subacute infarction can be seen. Note is made of age-appropriate brain parenchymal volume loss and chronic small vessel ischemic changes. No masses or abnormal enhancement can be seen. Is Dictated by: Maciej Morrow M.D. on 05/27/2022 at 18:32 Approved by: Maciej Morrow M.D. on 05/27/2022 at 18:33
--- NOTE | 2022-05-27 | DI.MRI.S_ITS ---
PROCEDURE: MR ANGIO HEAD WO CON INDICATIONS: TIA TECHNIQUE: Noncontrast axial 3-D [id number] MR angiogram, with 3-dimensional maximum intensity projection (MIP) reformats of the internal carotid arteries and posterior circulation then performed. COMPARISON: [facility], CT, CT HEAD/BRAIN WO CON, 10/29/2021, 10:40. FINDINGS: Image quality: Excellent. Anterior circulation: Intracranial internal carotid arteries demonstrate normal size and intraluminal flow signal. The flow within the paired anterior cerebral arteries is normal and symmetric. The flow within the middle cerebral arteries is normal and symmetric. The anterior communicating artery is seen. No stenoses, occlusions, or aneurysms. Posterior circulation: Visualized portions of the vertebral arteries demonstrate normal caliber, and join to form a normal appearing basilar artery. There is a prominent left posterior communicating artery seen, with an accompanying diminutive left P1 segment. This is attributed to a type origin of the left posterior cerebral artery, which is considered to be a normal developmental variant of typically no clinical consequence. The flow within the posterior cerebral arteries is normal and symmetric. No stenoses, occlusions, or aneurysms. IMPRESSION: No significant intracranial arterial abnormality is seen. Dictated by: Maciej Morrow M.D. on 05/27/2022 at 18:11 Approved by: Maciej Morrow M.D. on 05/27/2022 at 18:12
== END ==
PROVIDERS: Family Provider Physician Assistant Medical; PCP Physician Assistant Medical; Referring Provider Nurse Practitioner; Visit Provider Nurse Practitioner
DX: G45.9 Transient cerebral ischemic attack, unspecified (principal)
CPT/HCPCS: 70544; 70553; A9579

== ENCOUNTER → 2022-06-15 12:58 | Outpatient (CLI) | payer MEDICARE, SELFPAY ==
[2019-10-10 14:21] VITALS: BMI 42.5
[2022-06-15 13:50] LABS: COVID19 -Nasal RAPID Negative (Negative)
== END ==
PROVIDERS: Family Provider Physician Assistant Medical; PCP Physician Assistant Medical; Referring Provider Orthopaedic Surgery; Visit Provider Orthopaedic Surgery
DX: Z20.822 Contact with and (suspected) exposure to COVID-19 (principal)
CPT/HCPCS: 87635; C9803

== ENCOUNTER 2022-06-17 06:17 | Inpatient (IN) | payer MEDICARE, SELFPAY ==
[2019-10-10 14:21] VITALS: BMI 42.5
[2022-06-09 13:27] VITALS: BMI 40.1
[2022-06-17] VITALS (13 sets, daily range): BP systolic 103–160; BP diastolic 57–90; PULSE 76–93; RESP 13–34; TEMP 35.7–36.6; O2SAT 93–99; BMI 40.1
--- NOTE | 2022-06-17 06:00 | DI.RAD.S_ITS ---
PROCEDURE: XR KNEE LT 1TO2V INDICATIONS: total left knee revision TECHNIQUE: 2 views of the knee were acquired. COMPARISON: [facility], , KNEE 1-2 VIEWS LEFT, 05/23/2008, 16:01. FINDINGS: Bones: There is been interval left total knee arthroplasty revision. Arthroplasty components are well seated. No evidence of hardware failure or loosening. Postprocedural soft tissue air within expected limits. Soft tissues: No joint effusion. No suspicious soft tissue calcifications. IMPRESSION: Left knee total arthroplasty revision in good position Approved by: Rob Bermudez M.D. on 06/17/2022 at 10:14
[2022-06-17] MEDS: LACTATED RINGERS 1,000 ML 84 ML IV ×2 (07:10→10:10)
--- NOTE | 2022-06-17 07:29 | PM.PREOP ---
Pre-operative Note COVID-19 COVID-19 status: Negative Result date/Date tested (Pos, Neg/Pending): 06/15/22 Interval Note History & Physical reviewed/Exam performed by Physician: Yes Changes to H&P: No
[2022-06-17] MEDS: CEFAZOLIN 2 GM/100 ML PREMIX 100 ML IV (08:05)
[2022-06-17] MEDS: TRANEXAMIC ACID 1,000 MG VIAL 2000 MG INJ ×2 (08:05→10:03)
--- NOTE | 2022-06-17 08:35 | SUR.OPER ---
Supine on padded OR bed. Pillow under head, arms secured on padded armboards <90 degree abduction. Safety belt across torso. Non-operative leg secured with tape over blanket over lower leg. Operative leg secured in DeMayo/Jim/Nathe positioner. Foam padded brace at thigh of operative leg. POSITION APPROVED BY SURGEON AND ANESTHESIA.
[2022-06-17] MEDS: BUPIVACAINE 0.25% (PF) 60 ML, EPINEPHrine 0.3 MG INJ (10:00)
[2022-06-17] MEDS: BUPIVACAINE LIPOSOME 266 MG/20 ML VIAL INJ (10:00)
[2022-06-17] MEDS: MORPHINE 4 MG/ML INJ INJ (10:00)
--- NOTE | 2022-06-17 10:25 | PM.OP.1 ---
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 She is requested revision to total knee replacement after discussion the risks benefits and alternatives. Risks discussed included but were not limited to: Failure to improve, stiffness, infection, nerve damage, deep venous thrombosis, pulmonary embolism, stroke, myocardial infarction, permanent paralysis and . Surgeon: Kj Ayon Pulmonary Specialist: Chucky Samson Click Yes if Unassisted: No Anesthesia Type: General, Spinal and Local Operative Notes Findings: Well-fixed bicompartmental knee replacement with severe lateral compartment livy-oh-uopu arthritis with large osteophytes. Closure Type: primary Specimen(s): none sent Prosthetic devices, grafts, tissues, transplants, or devices: Implants used in this procedure were manufactured by the [employer] and included a Sonam II left size 4 tibial base plate, a 15 mm legion high flex posterior stabilized tibial insert, a size 4 legion Oxinium constrained femoral component with a 4 mm offset art psychotherapist or therapist and a straight 12 mm x 160 mm stem and a size 4 5mm distal by 5mm posterior augment for the medial side. Removed were the tibial and femoral components from a Silva and Nephew Deuce bicompartmental knee replacement. The patella was left in position. Applied: implant(s) Estimated Blood Loss (mL): 50 Blood products transfused: none Tourniquet time (min): 91 Procedure in detail: The patient was seen in the pre-operative area, where the patient identified the right knee as the operative site and this was marked with my initials. The patient received pre-operative antibiotics, and was taken to the operating room and placed on the operative table in the supine position. After satisfactory anesthesia, a timekeeping supervisor out was performed. The right leg was encircled with a tourniquet about the proximal thigh, and the leg was prepared from the toes to the tourniquet with ChloroPrep in the usual fashion and draped through sterile drapes. The leg was elevated and exsanguinated with Eschmark bandage and the tourniquet inflated to 250 mmHg pressure. The knee was approached through the prior approach. The skin incision was excised. The deep incision was and carried into the knee through the previous medial parapatellar arthrotomy, as much suture material as possible was removed. The anterior osteophytes and soft tissues were removed. Using narrow thin osteotome, the femoral and tibial components were removed with minimal loss of bone stock. The proximal tibial cut was then made using the intramedullary guide, taking a skim cut off the medial side which seemed to measure approximately 11 mm on the lateral side. The rotational landmarks of the transepicondylar axis were marked on the femur with electrocautery, and the intramedullary guide hole for the femur was created. Cylindrical reamers were used until good cortical bite was encountered at a depth of 160 mm. The distal femoral cut was made in 6 degrees of valgus using the intramedullary guide at a skim cut on the medial condyle. The finishing guide was applied with rotation being confirmed both by the epicondyles and by using a spacer block referencing the tibial cut. The anterior, posterior and chamfer cuts were then made. The posterior osteophytes and soft tissues were then removed. The posterior capsule was injected with part of a mixture of 60 ml 0.25% Marcaine mixed with 20 ml Exparel and 4 mg of morphine for post-operative pain control. The remainder of this mixture was injected into the capsule and subcutaneous tissues during construction of the final femoral prosthetic. A trial femoral prosthetic was assembled with the correct offset and impacted into the femur. Careful inspection showed that 5 mm augmentation would be needed posteriorly and distally so these cuts were amended to allow appropriate support for the prosthetic. The intercondylar notch was cut through the femoral trial. The tibia was prepared with the rotation set by an extra medullary guide. Trial tibial and femoral components were then placed, balance of the ligaments and size of the tibial insert were confirmed. Range of motion was 0-130 degrees, with good stability throughout the range. The patella was was well fixed and not revised. There was no need for a lateral release. The trials were then removed. The bone was prepared with pulsatile lavage, and dried with a sponge. Cement was applied and the final prosthetics placed. Excess cement was removed during and after cement curing. After confirming there was no extruded cement posteriorly, the final tibial insert was placed. The knee was copiously irrigated and the tourniquet deflated. Hemostasis was obtained. The capsule was closed with interrupted # 2 polyester suture. The subcutaneous layer was closed with 3-0 Vicryl, and the skin with a running 3-0 V-Lock suture and Dermabond. An Page dressing was applied and the patient was taken to recovery having tolerated the procedure well. The services of a skilled orthodontist assistant were necessary for this procedure due to the complexity of revision knee surgery and the need for exposure during removal of the prosthetic, cutting of the bone and placement of the revision prosthetic. In addition Mr. Samson assisted in the assembly of the prosthetic while I was injecting anesthetic. The procedure could not have been completed expediently without his services. Complications: none Post-operative Condition: stable Disposition: PACU Plan for aftercare: The patient will be maintained on a standard total knee replacement protocol with weight bearing as tolerated. The patient will receive aspirin and sequential compression devices for DVT prophylaxis. The patient will be discharged home when safe for the home environment.
--- NOTE | 2022-06-17 10:48 | SUR.PHASEI ---
Report called to ZACH Edmonds.
--- NOTE | 2022-06-17 11:05 | SUR.PHASEI ---
Patient transferred to acute care with her belongings bag. Report given to Kendal. VS stable. Dressing CDI, SARAY drain in place. IV saline locked.
[2022-06-17] MEDS: LACTATED RINGERS 1,000 ML 100 ML IV (11:55)
[2022-06-17] MEDS: IBUPROFEN 400 MG TABLET PO ×2 (15:04→22:35)
[2022-06-17] MEDS: OXYCODONE IR 5 MG TABLET PO (15:06)
--- NOTE | 2022-06-17 16:26 | PT.IIE ---
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) Hx of appendectomy Hx of cholecystectomy (~1977) Hx of colectomy (~2003) Hx of tonsillectomy Hx of varicose vein stripping Status post left unicompartmental knee replacement Medical History (Last Reviewed 06/17/22 @ 06:42 by Rebecca Quezada RN) Abdominal hernia GERD (gastroesophageal reflux disease) History of prosthetic unicompartmental arthroplasty of left knee HLD (hyperlipidemia) HTN (hypertension) Low back pain Osteoarthritis Pneumonia (~1973) Right shoulder pain Small bowel obstruction (~2009) Physical Therapy Inpatient Evaluation/Re-Eval M1 PT/OT-IP Prior Functional Status Start: 06/17/22 14:54 Freq: NEEDED Status: Active Protocol: Document 06/17/22 16:26 AW (Rec: 06/17/22 17:17 AW [id number]) Medical Review Prior Functional Status Medical History Reviewed Yes Communication Pt is able to make her needs known. Mobility and Gait Pt reports independent mobility prior to surgery but admits to cruising furniture and vilchis at home and heavy dependence on shopping carts in the community due to pain and weakness. She also admits to at least one fall this calendar year. Activities of Daily Living and IADL's Independent but with increasing difficulty, especially with showers. Social History Household Members none Living Arrangements House Number of Floors (Floors) One Floor Number of Stairs To Enter/Railing? Pt states she has a ramped entry but typically enters through the garage where there is one ROWAN with a shelf on one side to hold on to. Home Environment High Toilet,Tub/Shower,Ramp Home Equipment Front Wheel Walker,Four Wheel Walker,Grab Bars In Shower Additional Social History Comment Pt states she has a tub bench that is not a transfer bench but rather that it attaches to the sides of the tub. She states she tends to stand for showers. Her brother will be staying with her for 7-10 days when she leaves the hospital. She also has helpful neighbors who may be able to assist. M2 PT-IP Current Condition Start: 06/17/22 14:54 Freq: NEEDED Status: Active Protocol: Document 06/17/22 16:26 AW (Rec: 06/17/22 17:17 AW [id number]) Physical Therapy Current Condition Current Condition Evaluation Date 06/17/22 Treatment Diagnosis L TKA revision; difficulty in walking Onset Date 06/17/22 M3 PT-IP Subjective Start: 06/17/22 14:54 Freq: NEEDED Status: Active Protocol: Document 06/17/22 16:26 AW (Rec: 06/17/22 17:17 AW [id number]) Subjective Physical Therapy Visit Type Type Initial Evaluation Visit Start Time 15:44 Visit Stop Time 16:26 Total Visit Minutes 42 Notes SPT Rossi Soriano was present and provided assist with mobility. Physical Therapy Visit Comments Patient Comments I'm a little out of it, a little bit out there right now . Patient Goals Return home with her brother to assist. M4 PT-IP Mobility and Gait Start: 06/17/22 14:54 Freq: NEEDED Status: Active Protocol: Document 06/17/22 16:26 AW (Rec: 06/17/22 17:17 AW [id number]) PT-Bed Mobility Assessment Supine to Sit Supine to Sit Moderate Assistance,1 Person Assistance,Head of Bed Elevated,Bedrails Sit to Supine Sit to Supine Moderate Assistance,1 Person Assistance Scooting Scooting to Edge of Bed Minimal Assistance PT-Transfer Assessment Sit to and From Stand Sit to and from Stand Moderate Assistance,1 Person Assistance,Use of Upper Extremities Equipment Transfer Assistive Device Gait Belt,Front Wheeled Walker Orthotic/Prosthetic Devices or Brace: No Transfers Transfer Destination Bed Transfer Technique Stand Step Pivot Transfer Ability Level of Assist Minimal Assistance,Moderate Assistance,1 Person Assistance ,2 Person Assistance Comments Mobility Comments Pt was lying in bed as PT arrived. BP 120/79 HR 72 SpO2 96% on room air. Pt was alert but appeared to be affected by anesthesia or pain medication . She had difficulty attending to conversation and to task. She requested to use the commode. She needed min to mod A to move LLE toward the left side of the bed and then to right her trunk. She complained of increased pain with her leg in dependent position but improved with PT supporting the leg and guiding her foot to the ground. She complained of lightheadedness. BP assessed at 125/69 HR 71. Lightheadedness resolved and pt stood mod A with FWW. She needed min A x 2 vs mod A x 1 to transfer with [place] to [facility] [place] her right side. She was able to void. She stood from the commode mod A and completed pericare as PT provided balance support. Transfer back to the bed and return to supine required mod A x 1. She was left with call light in reach. BRICK MACHINE OPERATOR arrived to take over care. Gait Assessment Gait Gait Assistance Required: Moderate Assistance,1 Person Assist Distance (Feet) 3 Able to Maintain Weight Bearing Status Yes During Gait Assistive Devices Assistive Device Gait Belt,Front Wheeled Walker Orthotic/Prosthetic Devices or Brace: No Gait Deviations General Gait Pattern Antalgic,Decreased Stride Length,Decreased Feet Clearance,Flexed Trunk,Step-to Gait Factors Limiting Gait Function Factors Limiting Gait Function Decreased Activity Tolerance, Decreased Sensation,Decreased Strength,Difficulty Following Directions,Limited Range of Motion,Pain,Poor Balance,Poor Safety Awareness Comments Gait Comments Steps taken during transfers only. Pt required mod assist and max cues for attention, weight shifting, and movement strategy. Stair Climbing Assessment Comments Stair Climbing Comments Not assessed. PT-Balance Assessment Sitting Balance and Reactions Static Sitting Balance Ability Good Dynamic Sitting Balance Ability Fair Standing Balance and Reactions Static Standing Balance Ability Poor Dynamic Standing Balance Ability Poor Device Used FWW M5 PT-IP Objective Assessments Start: 06/17/22 14:54 Freq: NEEDED Status: Active Protocol: Document 06/17/22 16:26 AW (Rec: 06/17/22 17:17 AW [id number]) Orientation Orientation/Cognition Level of Alertness Confusional State Orientation Name,Month,Place,Situation Language Function Ability No Deficits Noted Safety Awareness Decreased Safety Awareness Gross Range of Motion Lower Extremity ROM Assessment Left Impaired Strength Lower Extremity Strength Assessment Left Impaired Hip 3/5 Ankle 4-/5 Comments Strength Comments R hip 4-/5, R knee 4+/5 Sensation Assessment Sensation Gross Sensation Right LE Impaired,Left LE Impaired Sensation Description Tingling Comments Sensation Comments 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 M6 PT-IP Treatment Start: 06/17/22 14:54 Freq: NEEDED Status: Active Protocol: Document 06/17/22 16:26 AW (Rec: 06/17/22 17:17 AW [id number]) Physical Therapy Treatment Exercises Exercises Heel Slides Education Education Provided Weight Bearing Status,Post-Op Packet,Safety M7 PT-IP Assessment and Plan Start: 06/17/22 14:54 Freq: NEEDED Status: Active Protocol: Document 06/17/22 16:26 AW (Rec: 06/17/22 17:17 AW [id number]) PT Summary Assessment and Plan Potential Rehabilitation Potential Good Status of Condition at Evaluation Evolving Summary Impairments Pain,ROM,Strength,Balance, Sensation,Cognition,Bed Mobility,Transfers,Gait, Activity Tolerance Assessment Summary Marlen is a 71 yo woman seen for PT evaluation on POD0 following L revision TKA. She had bicompartmental knee replacement in 2006 which is now revised to TKA. She reports independent mobility and ADL management prior to surgery but admits to cruising furniture at home and depending heavily on shopping carts in the community. On assessment, she had difficulty attending to task and needed mod A x 1-2 for bed mobility and transfers with FWW. She will need to improve her mobility independence if she is to discharge home with her brother to assist. Will continue to assess. Goals Bed Mobility Goal Standby Assistance Transfer Goal Standby Assistance,Front Wheeled Walker Gait Goal Standby Assistance,Front Wheel Walker Gait Distance 100 Other Goals - up/down 1 step with unilateral rail CGA Days to Meet Goals 5 Frequency of Treatment Frequency Of Treatment Twice a Day Treatment Plan Physical Therapy Treatment Plan Bed Mobility Training,Transfer Training,Gait Training, Therapeutic Exercise,Balance Retraining,Post Op Education, Discharge Planning,Hot or Cold Pack,Neuromuscular Re-ed Other Recommendations and Next Treatment pre-mobility ther ex; mobilize Focus as tolerated; set up CGT with pt's brother if indicated Weight Bearing Status Weight Bearing Status Weight Bear as Tolerated Allowed Weight Bearing Amount (enter % WBAT LLE or #) (%) Recommendations To Nursing Amount of Assist Needed 2 Person Assist Discharge Recommendations PT Discharge Recommendations Home with Assistance,Home with 24/7 Assist Available,Home Health,Outpatient PT Other Discharge Recommendations Depending on progress, home with assist and HH vs OP PT. If pt does not progress, may require SNF. Transportation Needs at Discharge Private Vehicle,Wheelchair/ Cabulance
--- NOTE | 2022-06-17 19:01 | PC.NURSE ---
Pt has been brought to the floor at approx 1100. She is A&Ox4. Left knee has PICCO Drain with marciano wrap which is CDI Pt denies pain. CMS+ PPP+. She has been given 25mg Benadryl for facial and scalp itching and 5mg Oxycodone at 1506. At 1800, Pt reported that she was seeing coffee grounds dripping down the vilchis. She was not disturbed by this and understood that it was most likely from her narcotic pain medication. She is on continuous pulse oximetry per duromorph orders.
[2022-06-17] MEDS: ASPIRIN EC 81 MG TABLET PO (22:36)
[2022-06-17] MEDS: PANTOPRAZOLE DR 20 MG TABLET PO (22:36)
[2022-06-17] MEDS: ATORVASTATIN 20 MG TABLET PO (22:36)
[2022-06-17] MEDS: DOCUSATE 100 MG CAPSULE PO (22:36)
[2022-06-17] MEDS: SENNOSIDES 8.6 MG TABLET 17.2 MG PO (22:36)
[2022-06-17] MEDS: ACETAMINOPHEN 325 MG TABLET 650 MG PO (23:19)
[2022-06-17] MEDS: LOSARTAN 25 MG TABLET 50 MG PO (23:20)
[2022-06-18] MEDS: IBUPROFEN 400 MG TABLET PO ×2 (02:02→09:19)
[2022-06-18] MEDS: diphenhydrAMINE 50 MG/ML VIAL 25 MG IV (02:02)
[2022-06-18] MEDS: OXYCODONE IR 5 MG TABLET PO ×2 (03:51→09:18)
[2022-06-18 04:00] VITALS: BP 146/82; PULSE 83; RESP 18; TEMP 36.4; O2SAT 97
[2022-06-18] MEDS: PANTOPRAZOLE DR 20 MG TABLET PO (06:49)
[2022-06-18 07:52] LABS: Hematocrit 34.8 % (36-46); Hemoglobin 11.9 g/dL (12.0-16.0)
[2022-06-18 08:00] VITALS: BP 134/70; PULSE 81; RESP 17; TEMP 36.2; O2SAT 97
--- NOTE | 2022-06-18 09:13 | P.DS_ITS ---
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 She is requested revision to total knee replacement after discussion the risks benefits and alternatives.? Risks discussed included but were not limited to:? Failure to improve, stiffness, infection, nerve damage, deep venous thrombosis, pulmonary embolism, stroke, myocardial infarction, permanent paralysis and . Surgeon: Kj Ayon Admissions Specialist: Chucky Samson Click Yes if Unassisted: No Anesthesia Type: General, Spinal and Local Operative Notes Findings: Well-fixed bicompartmental knee replacement with severe lateral compartment [id number] arthritis with large osteophytes. Closure Type: primary Specimen(s): none sent Prosthetic devices, grafts, tissues, transplants, or devices: Implants used in this procedure were manufactured by the [employer] and included a Sonam II left size 4 tibial base plate, a 15 mm legion high flex posterior stabilized tibial insert, a size 4 legion Oxinium constrained femoral component with a 4 mm offset echocardiography radiology technologist and a straight 12 mm x 160 mm stem and a size 4 5mm distal by 5mm posterior augment for the medial side.? Removed were the tibial and femoral components from a [employer] bicompartmental knee replacement.? The patella was left in position. Applied: implant(s) Estimated Blood Loss (mL): 50 Blood products transfused: none Tourniquet time (min): 91 Discharge Providers Provider Date of admission: 06/17/22 06:17 Discharge Date: 06/18/22 Primary care physician: Haley Bills PA-C Consults: 06/17/22 10:53 Consult to Discharge Planning Routine Comment: Consult to Physical Therapy Evaluate & Treat Comment: Physician Instructions: postop TKA protocol Discharge provider: Lorena Urbina PA-C Summary Hospital Course Discharge Diagnosis: s/p revision left total knee arthroplasty Hospital Course: Ms Jules's hospital course was unremarkable. On POD# 1 she was feeling well and wanted to go home. She reported itching w/ oxycodone and said she had tramadol in the past post-operatively with good control of pain. She was eating and voiding without difficulty. She was evaluated by PT during her stay. She will have help at home from her brother, she has a walker at home and has outpt PT scheduled to begin within the week. Exam Vital Signs (past 8 hours): - 06/18/22 04:00 Temperature 97.6 F Pulse Rate 83 Respiratory Rate 18 Blood Pressure 146/82 H Pulse Oximetry 97 Oxygen Flow Rate 0 Oxygen Delivery Method Room Air Oxygen Flow Rate 0 Narrative Exam Narrative: 5/5 strength in hip flexors, quadriceps, hamstrings, DF, PF, EHL on left. S ensation to light touch intact in LLE. Calves soft, compressible, nontender and without palpable cords or masses. SARAY dressing CDI and functioning. Objective Labs Result Diagrams: 06/18/22 07:25 Labs: Laboratory Results - last 24 hr 06/18/22 07:25 Hgb 11.9 L Hct 34.8 L PFSH Medical History Abdominal hernia GERD (gastroesophageal reflux disease) History of prosthetic unicompartmental arthroplasty of left knee HLD (hyperlipidemia) HTN (hypertension) Low back pain Osteoarthritis Pneumonia (~1973) Right shoulder pain Small bowel obstruction (~2009) Surgical History (Updated 06/18/22 @ 09:21 by Lorena Urbina PA-C) H/O gastric bypass (~1979) H/O medial meniscus repair of right knee (2007) H/O shoulder surgery History of bilateral tubal ligation (~1984) History of hernia repair 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 Discharge Plan Discharge Plan Patient Disposition: Home Discharge orders & Medications Prescriptions: New tramadol 50 mg tablet 50 mg PO Q4-6H PRN (Reason: pain (scale score 7-10)) Qty: 60 0RF aspirin 81 mg Tablet,Delayed Release (Dr/Ec) 81 mg PO BID Qty: 90 0RF docusate sodium 100 mg Capsule 100 mg PO BID PRN (Reason: constipation) Qty: 60 0RF hydroxyzine pamoate 25 mg Capsule 25 mg PO Q6H PRN (Reason: muscle spasm) Qty: 120 1RF Continued cholecalciferol (vitamin D3) [Vitamin D3] 5,000 unit Tablet 10,000 unit PO DAILY Qty: 0 losartan 25 MG tablet 50 mg PO BID Qty: 0 omeprazole 20 MG capsule,delayed release(DR/EC) 20 mg PO BID Qty: 0 Fish Oil 360 mg-144 mg- 216 mg-1,200 mg Capsule,Delayed Release(Dr/Ec) 3 cap PO DAILY Qty: 0 Rx Instructions: 2 tabs qam, 1 tab noon atorvastatin 20 mg Tablet 20 mg PO BEDTIME naproxen sodium [Aleve] 220 mg Capsule 220 mg PO BID Vimal-E 200 mg Tablet 200 mg PO BID metformin 500 mg Tablet 500 mg PO DAILY senna 8.6 mg Capsule 17.2 mg PO BID Trulicity 1.5 mg/0.5 mL Pen Injector 1.5 mg SUBCUT QWEEK Label Comments: Injects on Tuesdays fexofenadine 180 mg Tablet 180 mg PO DAILY acetaminophen 1,000 mg PRN (Reason: Pain (Scale Score 4-6)) Discontinued aspirin 81 mg tablet,delayed release (DR/EC) 81 mg PO DAILY Follow up/Referrals: Haley Bills PA-C [Primary Care Provider] - Kj Ayon MD [Physician] - As previously scheduled (Follow up w/ Marita Gr PA-C, on 07/02/2022 @ 1:20 pm at [facility] office in [place].) Diet/Activity/Treatments Diet: Diet as Tolerated Activity: Walk frequently! Cold/Heat Therapy: Ice to knee as needed for pain. Skin/Wound/Dressing Care Report to your healthcare provider any signs of infection, such as:: chills, fever, night sweats, unusual drainage and unusual redness Dressing: May shower with dressing on; battery pack can get wet, but keep it out of direct shower spray. Batteries will in 5-7 days, at which time pack can be disconnected/cut off and disposed of. Leave dressing intact until follow up appointment. No bathing or otherwise soaking incision. Visit Report/Discharge Packet Instructions: DI for Knee Replacement, DI for Prescription Opioid Use Stand Alone Forms: Surgery Discharge Discharge Data Primary Care Provider: Haley Bills
[2022-06-18] MEDS: LORATADINE 10 MG TABLET PO (09:16)
[2022-06-18] MEDS: DOCUSATE 100 MG CAPSULE PO (09:16)
[2022-06-18] MEDS: ASPIRIN EC 81 MG TABLET PO (09:16)
[2022-06-18] MEDS: METFORMIN HCL 500 MG TABLET PO (09:16)
[2022-06-18] MEDS: SENNOSIDES 8.6 MG TABLET 17.2 MG PO (09:16)
[2022-06-18 09:17] VITALS: BP 134/70; PULSE 81
[2022-06-18] MEDS: LOSARTAN 25 MG TABLET 50 MG PO (09:17)
[2022-06-18] MEDS: CHOLECALCIFEROL (VITAMIN D3) 5,000 UNIT TABLET 10000 UNIT PO (09:17)
--- NOTE | 2022-06-18 10:57 | CM.DANOTE ---
Initial Discharge Assessment Note: Case received, EMR reviewed. Met with patient and introduced self and role Payer: [employer] Medicare and self pay PCP: Haleydereck Bills 71 year old single female admitted for L TKA revision on 06/17/22. She has optimal DME in home for postoperative recovery. Her brother Sly will be staying with patient for a week postop. She has friends and neighbors for assistance as well. Plan: Orders for DC today. Brother to transport. SEJ Discharge Planning/Care Management CM Discharge Assessment Start: 06/18/22 10:51 Freq: Status: Active Protocol: Document 06/18/22 10:51 (Rec: 06/18/22 10:53 [id number]) Discharge Planning Assessment Assigned Fast Food Team Member Akanksha Beaulieu RN/DCP Advance Directives? Yes: - polst Advance Directives on File No History Provided By Patient,Medical Record Prior Living Arrangements House Household Members none Type of transporation used prior to Drives own vehicle admit Independent with ADL's Yes Is patient alert and oriented? Yes Caregiver for Another No Barriers to Discharge No Comment Brother to stay with her 7 days. Also friends and neighbors to assist. Discharge Plan Home Transportation Arrangement Brother to provide transport home after 1300 today Referrals Initiated None needed Whiteboard Updated in Patient Room with Yes name and ext. # of Fast Food Team Member Review Status In Process Next Review Type Continued Stay Review Pre-Anesthesia Assessment Start: 06/09/22 13:27 Freq: Status: Active Protocol: Document 06/09/22 13:27 CAB (Rec: 06/09/22 14:34 CAB [id number]) Pre-Anesthesia Assessment Patient Information Reviewed Via Phone Assessment Assessment Completed With Patient Diagnostic Results BMP/CMP,CBC,EKG Comment Outside labs/ECG scanned, COVID screen @ [facility] 06/15/22 Primary Care Provider María Robb Medical Clearance Received Yes Specialist Seen Outdoor Adventure Instructor,Emergency, Orthopedist Comment PCP clearance scanned Primary Language Palestinian Preferred Language Palestinian Boiler Operators Supervisor Required No Height 162.56 cm Weight 106.141 kg Body Mass Index (BMI) 40.1 Hearing Ability Normal Visual Assist Glasses Dentition Type Teeth, Natural Present,Partial - Upper,Dental Implants Other Aids No Hx Anesthesia Reactions No Hx Family Anesthesia Reaction No Hx Malignant Hyperthermia No Hx Blood Transfusions No Anesthesia Review Requested No Carbon Capture Power Plant Operator No alcohol intake current alcohol intake frequency holidays/special occasions only Smoking Status Never smoker Substance Use Type does not use Pain Present Pain Reported Musculoskeletal Symptoms Abnormal Gait,Difficulty Walking,Joint Pain History of Falling (Recent or History of Yes ) Patient is completely paralyzed or No completely immobile Mental Status Oriented to own ability Is patient on oxygen? No Does patient have KNUTSON/SOB No Hx Sleep Apnea No Currently Taking a Beta Teresita No Can You Climb a Flight of Stairs Without Yes SOB Hx Chest Pain No Hx SOB No Hx Syncope or Dizziness No Anti-Coagulant Therapy No Has a Outdoor Adventure Instructor Yes: Dr. JiménezLaKguz-jej-fh clearance visit 04/03/22 Cardiac Testing No Hx Pacemaker/ICD No Cardiac Clearance Received Yes Comment Cardiac records scanned Diet Type At Home Regular dysphagia No Gastrointestinal Symptoms Reflux Urinary Catheter Present No Hx Urinary Self Catheterization No Diabetes Yes HgbA1C 6.5 Date 05/26/22 Patient No Lactating No Hx Drug Resistant Organism No Presence of External or Internal Medical Yes: Left knee, right shoulder Devices , dental implants Have you had any close contact with No someone diagnosed with COVID-19? Received a COVID vaccine? Yes Received all doses? Yes Marital Status Lives With none Prior Living Arrangements House Number of Floors (Floors) One Floor Support System Sibling(s) Does the Patient Have Assistance After Yes: Brother will stay w/pt x Surgery 1 week to assist then neighbors will help Patient Discharge Plan Description Return Home Comment Pt advised overnight length of stay per surgeon Feels Safe in Current Environment Yes Been Physically Hurt or Threatened By a No Person in Current Environment Do you have thoughts of harming yourself None or others? Are you currently considering suicide? No Do you have a plan to hurt yourself or No Plan others? Do You Have Any Spiritual Beliefs That No May Affect Your HC Choices? Do You Have Any Cultural Practices That No May Affect Your HC Choices? Comment Mandaen Who Can We Speak to About Patient's Care Family, friends Identifying Code for Release of Patient Declines to issue Information Health Care Proxy/Next of Kin Sly Antonybrother) Health Care Proxy Emergency Contact Name Sly cavazoser) Emergency Contact Advance Directives? Yes: - polst Advance Directives on File No Power of Shuttle Filler Yes Power of Shuttle Filler Name Sly hurtado) Power of Shuttle Filler PAC Instructions Diabetes instructions,Do not shave/clip surgical site, Durable medical equipment, Medications to take/avoid, Nasal antibiotic,No ETOH/ petroleum product on skin DOS, NPO,Pre-surgical wash,Sensory aids,Sturdy shoes/comfortable clothes,Do not bring valuables and remove jewelry
== END 2022-06-18 10:30 | disposition home or self-care (01) | DRG 467 ==
PROVIDERS: Admitting Provider Orthopaedic Surgery; Family Provider Physician Assistant Medical; PCP Physician Assistant Medical; Referring Provider Orthopaedic Surgery; Visit Provider Orthopaedic Surgery
PROC: 0SPD0JZ Removal of Synthetic Substitute from Left Knee Joint, Open Approach (ICD-10-PCS; principal; 2022-06-17 07:45)
DX: M17.12 Unilateral primary osteoarthritis, left knee (principal); Z68.41 Body mass index [BMI] 40.0-44.9, adult; I44.4 Left anterior fascicular block; I10 Essential (primary) hypertension; E66.01 Morbid (severe) obesity due to excess calories; K21.9 Gastro-esophageal reflux disease without esophagitis; E78.5 Hyperlipidemia, unspecified; R73.03 Prediabetes; Z96.652 Presence of left artificial knee joint; Z20.822 Contact with and (suspected) exposure to COVID-19
CPT/HCPCS: 36415; 73560; 82962; 85014; 85018; 87635; 97162; 97530; C1776; C9803; C1713; C9290; J0171; J0690; J1100; J1200; J1815; J2250; J2270; J2274; J2405; J2704; J3010

== ENCOUNTER → 2022-07-30 15:38 | Outpatient (CLI) | payer MEDICARE, SELFPAY ==
[2022-06-17 11:22] VITALS: BMI 40.1
--- NOTE | 2022-07-30 15:40 | DI.MRI.S_ITS ---
PROCEDURE: MR LUMBAR SPINE WO CON INDICATIONS: Spinal stenosis, lumbar region TECHNIQUE: Noncontrast sagittal T1 spin echo and T2 fast echo, sagittal STIR, and T2 fast spin echo through the lumbar spine. In cases with scoliosis, additional coronal T2 fast spin echo may be performed. COMPARISON: [facility], MR, MR LUMBAR SPINE WO CON, 07/23/2020, 15:58. FINDINGS: Image quality: Excellent. Alignment and Curvature: There is leftward scoliotic curvature with apex at L3-4. This measures approximately 28?, unchanged compared to prior exam. There is trace retrolisthesis of L2 on L3, L3 on L4, L4 on L5. Bone Marrow: Marrow is of normal overall signal. No acute vertebral body compression fractures. Spinal Cord: Conus medullaris terminates at the L1-2 level. Visualized cord demonstrates normal signal and size. Paraspinous Soft Tissues: No paravertebral masses. Discs: Multilevel moderate to severe disc desiccation is present most severe at L2-3 through L4-5. L1-L2: Mild disc bulge without spinal stenosis. Severe left and moderate right foraminal narrowing with compression of the exiting left L1 nerve roots. Facet and ligamentum flavum hypertrophy are present. No interval change. L2-L3: Mild disc bulge with [id number] spinal stenosis. Severe right and mild left foraminal narrowing. There is mild compression of the exiting L2 right nerve roots. Facet and ligamentum flavum hypertrophy are present. L3-L4: Mild disc bulge with moderate spinal stenosis. Moderate left and moderate to severe narrowing on the right through the subarticular recess is present. Facet and ligamentum flavum hypertrophy are present. No appreciable interval change. L4-L5: Mild disc bulge with moderate to severe spinal stenosis with slight appearance of canal compression. Severe left foraminal narrowing and moderate right narrowing through the subarticular recess, unchanged. Facet and ligamentum flavum hypertrophy are present. L5-S1: Mild disc bulge without spinal stenosis. Severe left and mild right foraminal narrowing with slight compression of the exiting left L5 nerve roots. Facet and ligamentum flavum hypertrophy are present. IMPRESSION: Scoliotic curvature, unchanged. Multilevel degenerative changes overall stable compared to prior exam. Multilevel foraminal narrowing most severe at L2-3, L4-5 and L5-S1 secondary to facet arthropathy. Multilevel spinal stenosis most severe at L4-5 secondary to disc bulge with contributing effect of facet/ligamentum flavum arthropathy. Dictated by: Glenda Vázquez M.D. on 07/30/2022 at 17:18 Approved by: Glenda Vázquez M.D. on 07/30/2022 at 17:24
== END ==
PROVIDERS: Family Provider Physician Assistant Medical; PCP Physician Assistant Medical; Referring Provider Physical Medicine & Rehabilitation; Visit Provider Physical Medicine & Rehabilitation
DX: M48.062 Spinal stenosis, lumbar region with neurogenic claudication (principal); M48.07 Spinal stenosis, lumbosacral region; M47.816 Spondylosis without myelopathy or radiculopathy, lumbar region; M47.817 Spondylosis without myelopathy or radiculopathy, lumbosacral region; M51.36 Other intervertebral disc degeneration, lumbar region; M51.37 Other intervertebral disc degeneration, lumbosacral region
CPT/HCPCS: 72148

== ENCOUNTER 2022-09-18 07:58 | Emergency (ER) | payer MEDICARE, SELFPAY ==
[2022-06-17 11:22] VITALS: BMI 40.1
[2022-09-18 08:18] VITALS: PULSE 90; O2SAT 97
[2022-09-18 08:28] VITALS: BP 181/97; PULSE 71; RESP 16; TEMP 36.5; O2SAT 95; BMI 36.6
[2022-09-18 08:30] VITALS: PULSE 93; O2SAT 96
[2022-09-18 08:44] LABS: Add Manual Diff / Slide Review NO; Basophils Absolute Auto 0 /uL (0-100); Basophils Percent Auto 0.5 % (0-2); Eosinophils Absolute Auto 100 /uL (0-450); Eosinophils Percent Auto 1.5 % (2-4); Hematocrit 42.3 % (36-46); Hemoglobin 14.4 g/dL (12.0-16.0); Lymphocytes Absolute Auto 1200 /uL (1100-4500); Lymphocytes Percent Auto 13.8 % (25-40); Mean Corpuscular Hemoglobin 30.6 PG (26-34); Monocytes Absolute Auto 600 /uL (0-900); Monocytes Percent Auto 7.6 % (3-14); Neutrophils Absolute Auto 6400 /uL (1500-7000); Neutrophils Percent Auto 76.6 % (50-75); Platelet Count 249 X10^3/uL (150-400); Prothrombin Time 11.5 SECONDS (10.1-12.7); Red Cell Distribution Width 14.2 % (11.6-14.8); White Blood Cell Count 8.4 X10^3/uL (4.5-11.0)
--- NOTE | 2022-09-18 08:46 | ED.GENADULT ---
HPI - General Adult General Chief complaint: Abdominal Pain Stated complaint: N/ with pain in abd t-1 Time Seen by Provider: 09/18/22 08:41 Source: patient Mode of arrival: Ambulatory Limitations: no limitations History of Present Illness HPI narrative: Patient is a 71-year-old female who is here for evaluation of right-sided abdominal discomfort and also vomiting. She has had multiple abdominal surgeries in the past to include diverticulitis resulting in a colectomy. She has had right-sided abdominal pain in the past but it has never lasted this longer been this severe. It started approximately 0800 hours last night. No fevers. Occasional dysuria but nothing currently. She would have a small bowel movement but that did not change her abdominal pain at all. Has not tried anything for the symptoms. No skin rashes. Related Data Home Medications Medication Instructions Recorded Confirmed cholecalciferol (vitamin D3) 125 10,000 unit PO DAILY ##0 07/08/10 06/17/22 mcg (5,000 unit) tablet (Vitamin D3) losartan 25 mg tablet 50 mg PO BID ##0 04/27/11 06/17/22 omega-3 360 mg-dha 144 mg-epa 216 3 cap PO DAILY ##0 04/27/11 06/17/22 mg-fish oil 1,200 mg capsule,del rel (Fish Oil) omeprazole 20 mg capsule,delayed 20 mg PO BID ##0 04/27/11 06/17/22 release atorvastatin 20 mg tablet 20 mg PO BEDTIME 09/28/19 06/17/22 naproxen sodium 220 mg capsule 220 mg PO BID 09/28/19 06/17/22 (Aleve) s-adenosylmethionine 200 mg tablet 200 mg PO BID 09/28/19 06/17/22 (Vimal-E) dulaglutide 1.5 mg/0.5 mL 1.5 mg SUBCUT QWEEK 06/09/22 06/17/22 subcutaneous pen injector (Trulicity) metformin 500 mg tablet 500 mg PO DAILY 06/09/22 06/17/22 sennosides 8.6 mg capsule (senna) 17.2 mg PO BID 06/09/22 06/17/22 fexofenadine 180 mg tablet 180 mg PO DAILY 06/10/22 06/17/22 acetaminophen 1,000 mg PO PRN PRN Pain (Scale 06/17/22 06/18/22 Score 4-6) Previous Rx's Medication Instructions Recorded aspirin 81 mg tablet,delayed 81 mg PO BID #90 tabs 06/18/22 release docusate sodium 100 mg capsule 100 mg PO BID PRN constipation #60 06/18/22 caps hydroxyzine pamoate 25 mg capsule 25 mg PO Q6H PRN muscle spasm #120 06/18/22 caps tramadol 50 mg tablet 50 mg PO Q4-6H PRN pain (scale 06/18/22 score 7-10) #60 tabs hydrocodone 5 mg-acetaminophen 325 1 tab PO Q4-6H PRN pain #14 tabs 09/18/22 mg tablet ondansetron 4 mg disintegrating 4 mg PO Q6H PRN nausea and 09/18/22 tablet vomiting #14 tabs tamsulosin 0.4 mg capsule (Flomax) 0.4 mg PO DAILY #14 caps 09/18/22 Allergies Allergy/AdvReac Type Severity Reaction Status Date / Time Sulfa (Sulfonamide Allergy Severe ITCHING Verified 06/17/22 06:42 Antibiotics) ascorbic acid Allergy Intermediate Rash Verified 06/17/22 06:42 citalopram [From Celexa] Allergy Pt does Verified 06/17/22 06:42 not remember reaction doxycycline Allergy Pt does Verified 06/17/22 06:42 not remember reaction escitalopram [From Lexapro] Allergy Pt does Verified 06/17/22 06:42 not remember reaction lisinopril Allergy Pt does Verified 06/17/22 06:42 not remember reaction meloxicam [From Mobic] Allergy Pt does Verified 06/17/22 06:42 not remember reaction metronidazole [From Flagyl] Allergy Pt does Verified 06/17/22 06:42 not remember reaction montelukast [From Singulair] Allergy Pt does Verified 06/17/22 06:42 not remember reaction piroxicam [From Feldene] Allergy Pt does Verified 06/17/22 06:42 not remember reaction sulfamethoxazole Allergy Pt does Verified 06/17/22 06:42 [From Septra] not remember reaction sulfur dioxide Allergy Pt does Verified 06/17/22 06:42 not remember reaction trimethoprim [From Septra] Allergy Pt does Verified 06/17/22 06:42 not remember reaction Influenza Virus Vaccines AdvReac Severe Hives Verified 06/17/22 06:42 oxycodone [From Percocet] AdvReac Severe Hallucinati Verified 06/17/22 06:42 ng propoxyphene AdvReac Severe Hallucinati Verified 06/17/22 06:42 [From Darvocet-N] ng codeine AdvReac Pt unsure, Verified 06/17/22 06:42 thinks possibly nausea Review of Systems Constitutional Constitutional: Reports system reviewed and no additional complaints, except as documented Cardiovascular Cardiovascular: Reports system reviewed and no additional complaints, except as documented Respiratory Respiratory: Reports system reviewed and no additional complaints, except as documented Gastrointestinal Gastrointestinal: Reports system reviewed and no additional complaints, except as documented Genitourinary Genitourinary: Reports system reviewed and no additional complaints, except as documented Integumentary/Breasts Skin/Breast: Reports system reviewed and no additional complaints, except as documented Hematologic/Lymphatic On Anticoagulants: No Patient History Medical History Abdominal hernia GERD (gastroesophageal reflux disease) History of prosthetic unicompartmental arthroplasty of left knee HLD (hyperlipidemia) HTN (hypertension) Low back pain Osteoarthritis Pneumonia (~1973) Right shoulder pain Small bowel obstruction (~2009) Surgical History (Updated 06/18/22 @ 09:21 by Lorena Urbina PA-C) H/O gastric bypass (~1979) H/O medial meniscus repair of right knee (2007) H/O shoulder surgery History of bilateral tubal ligation (~1984) History of hernia repair 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) Hx of appendectomy Hx of cholecystectomy (~1977) Hx of colectomy (~2003) Hx of tonsillectomy Hx of varicose vein stripping Status post left unicompartmental knee replacement Social History household members: none Smoking Status: Never smoker alcohol intake: former Smoking Status: Never smoker alcohol intake frequency: holidays/special occasions only Substance Use Type: does not use Exam Initial Vital Signs Initial Vital Signs: Vital Signs Temperature 97.7 F 09/18/22 08:28 Pulse Rate 71 09/18/22 08:28 Respiratory Rate 16 09/18/22 08:28 Blood Pressure 181/97 H 09/18/22 08:28 Pulse Oximetry 95 09/18/22 08:28 Oxygen Delivery Method 09/18/22 08:28 Const General: cooperative and No ill appearing HENOH Head: normal to inspection and normocephalic Resp Effort & Inspection: normal respiratory effort Cardio Rate: regular rate GI Other: Abdominal discomfort right-sided abdomen with some guarding. Not firm. Not distended. Back/Spine/Pelvis Back: No CVA tenderness Skin General: no rashes or lesions noted Neuro General: patient alert, patient awake and moves all extremities Extrem General: normal to inspection and capillary refill normal Psych Appearance: grossly normal and well kempt Course Orders Ordered: ED Orders 09/18/22 08:26 Complete Blood Count AUTO DIFF Stat Comprehensive Metabolic Panel Stat Lipase Stat Prothrombin Time INR Stat 09/18/22 08:30 EKG-12 Lead Stat 09/18/22 08:47 CT abdomen pelvis w con Stat Discontinued Medications Hydromorphone HCl (Hydromorphone 1 Mg Inj) 1 mg IV NOW ONE Stop: 09/18/22 08:47 Last Admin: 09/18/22 09:11 Dose: 1 mg Documented By: NIGHAT Ondansetron HCl (Ondansetron 4 Mg/2 Ml Inj) 4 mg IV NOW ONE Stop: 09/18/22 08:47 Last Admin: 09/18/22 09:12 Dose: 4 mg Documented By: NIGHAT Vital Signs Vital signs: Vital Signs - 8 hr 09/18/22 08:28 Temperature 97.7 F Pulse Rate 71 Respiratory Rate 16 Blood Pressure 181/97 H Pulse Oximetry 95 Oxygen Delivery Method Room Air Medical Decision Making Lab Data Lab results reviewed: Yes I reviewed the patient's lab results. Result diagrams: 09/18/22 08:26 09/18/22 08:26 Labs: Lab Results 09/18/22 09/18/22 09/18/22 Range/Units 08:26 08:26 08:26 WBC 8.4 (4.5-11.0) X10^3/uL RBC 4.70 (4.0-5.2) X10^6/uL Hgb 14.4 (12.0-16.0) g/dL Hct 42.3 (36-46) % MCV 90.0 (80-100) fL MCH 30.6 (26-34) PG MCHC 34.0 (30-36) % RDW 14.2 (11.6-14.8) % Plt Count 249 (150-400) X10^3/uL Neut % (Auto) 76.6 H (50-75) % Lymph % (Auto) 13.8 L (25-40) % [place] % (Auto) 7.6 (3-14) % Eos % (Auto) 1.5 L (2-4) % Baso % (Auto) 0.5 (0-2) % Neut # (Auto) 6400 (7885-4964) /uL Lymph # (Auto) 1200 (7163-6755) /uL [place] # (Auto) 600 (0-900) /uL Eos # (Auto) 100 (0-450) /uL Baso # (Auto) 0 (0-100) /uL PT 11.5 (10.1-12.7) SECONDS INR 1.0 (0.9-1.3) Sodium 138 (137-145) mmol/L Potassium 4.1 (3.4-5.1) mmol/L Chloride 102 (98-107) mmol/L Carbon Dioxide 23 (22-32) mmol/L BUN 20 H (7-17) mg/dL Creatinine 0.85 (0.52-1.04) mg/dL Estimated GFR > 60 (>60) mL/min BUN/Creatinine Ratio 23.5 H (6-22) Glucose 137 H (80-110) mg/dL Calcium 10.4 H (8.4-10.2) mg/dL Total Bilirubin 0.8 (0.2-1.3) mg/dL AST 26 (14-36) IU/L ALT 19 (<35) IU/L Alkaline Phosphatase 103 (38-126) U/L Total Protein 8.1 (6.3-8.2) g/dL Albumin 4.5 (3.5-5.0) g/dL Globulin 3.6 (1.7-4.1) g/dL Albumin/Globulin Ratio 1.3 (1.0-2.8) Lipase 45 (23-300) U/L Urine Dip Bedside Urine Glucose Negative Bedside Urine Bilirubin - Negative Bedside Urine Ketone - Negative Urine Specific [place] 1.020 Bedside Urine Occult Blood +/- Bedside Urine pH 6.0 Bedside Urine Protein +/- 15 Bedside Urine Urobilinogen - Negative Bedside Urine Nitrite - Negative Bedside Urine Leukocytes - Negative Esterase Point of care testing: Urine Dip Bedside Urine Glucose Negative Bedside Urine Bilirubin - Negative Bedside Urine Ketone - Negative Urine Specific [place] 1.020 Bedside Urine Occult Blood +/- Bedside Urine pH 6.0 Bedside Urine Protein +/- 15 Bedside Urine Urobilinogen - Negative Bedside Urine Nitrite - Negative Bedside Urine Leukocytes - Negative Esterase Imaging Data CT scan - abdomen/pelvis: Radiologist's Impression: [address] [address] [address] Scan Report Signed Patient: Marlen Jules MR#: [id number] : 1950 Acct:[id number] Age/Sex: 71 / F Date of Service: 09/18/22 Loc: ED Accession Number: [id number] ?? Procedure: CT abdomen pelvis w con Ordering Provider: Kirt Bradshaw D.O. PROCEDURE:? CT ABDOMEN PELVIS W CON ? INDICATIONS:? Right-sided abdominal pain ? TECHNIQUE:? After the administration of intravenous contrast, axial sections acquired from the lung bases to the pubic symphysis.? Coronal and sagittal reformats were performed.? For radiation dose reduction, the following was used:? automated exposure control, adjustment of mA and/or kV according to patient size.? ? COMPARISON:? [facility], CT, ABDOMEN/PELVIS WITH CONTRAST, 04/05/2014, 11:13. ? FINDINGS:? Image quality:? Excellent.? ? Lung bases:? Unremarkable. Heart:? No significant findings. ? ABDOMEN: Liver:? No hepatic masses.? Normal attenuation. Gallbladder:? Surgically absent. Biliary ducts:? Appropriate post cholecystectomy.? No calculi. Pancreas:? Diminutive.? No ductal dilatation. Spleen:? Normal. Adrenal Glands:? No nodules. Kidneys and Ureters:? Mild right hydronephrosis and three punctate nonobstructing intrarenal calculi.? There is mild to moderate perinephric and periureteric inflammation. ?Moderate right hydroureter.? Just below the pelvic inlet, there is a 5 x 5 mm stone with Hounsfield units of about 460. There is mild right retroperitoneal edema and trace fluid. ?The left kidney contains a large nonobstructing lower pole stone filling the lower pole calyx measuring 1.2 x 0.9 cm with average Hounsfield units of 860. No left hydronephrosis.? No left-sided ureteral calcification.? The kidneys demonstrate symmetric uptake of IV contrast.? ? Stomach and Bowel:? Surgical changes of gastric bypass.? No small bowel obstruction.? Prior right hemicolectomy.? Mild sigmoid diverticulosis. Peritoneum:? No abnormal intraperitoneal fluid.? No free air.? ? Ventral Wall:? Prior hernia repair with mesh. Abdominal Nodes:? No retroperitoneal or mesenteric adenopathy by size criteria.? Vessels:? Aorta and inferior vena cava are normal in size.? ? PELVIS: Pelvic Organs:? Normal uterus and ovaries.? There are tubal ligation clips. Bladder:? Decompressed urinary bladder.? No calculi. Pelvic Nodes: No enlarged lymph nodes.? Miscellaneous: No hernias are seen. ? ? Slightly peripherally enhancing 2.5 cm left labial cyst. ? Bones:? Severe degenerative disc changes throughout the lumbar spine. ? ? IMPRESSION:? ? 1. 5 mm obstructing right mid ureteral calculus resulting in right retroperitoneal inflammation and mild hydroureteronephrosis. ? 2. Prominent nonobstructing left lower pole intrarenal calculus and other punctate nonobstructing right intrarenal calculi. ? 3. Surgical changes to the intestines as described.? No evidence of intestinal obstruction. ? 4. Chronic left labial cyst present previously.? ? ? Dictated by: Doreen Iraheta M.D. on 09/18/2022 at 10:19 ? ? Approved by: Doreen Iraheta M.D. on 09/18/2022 at 10:29? MDM Narrative Medical decision making narrative: Improvement of symptoms after pain medication. CT scan shows 5 mm right-sided ureteral stone. Kidney functions unremarkable. Urine shows no signs of infection. Will discharge home with symptom treatment and also Flomax given the size of the stone. She was also given return precautions. Was given follow-up instructions as well. She expressed understanding and agreement. Discharge Plan Departure Patient Disposition: Home Clinical Impression: Renal colic on right side Instructions: Kidney Stones -- Adult Activity Restrictions/Additional Instructions: Use the pain medicine and nausea medicine as needed. The 3rd medication that was sent to the pharmacy was a medicine called Flomax. This medicine has been shown to help pass stones. Please take it daily. Your 1st dose can be today. Please stay hydrated. If you are still having symptoms on Wednesday contact the urologist at the number provided below. If your symptoms worsen to include increasing pain, inability to urinate, fevers, vomiting please return to the emergency department for further evaluation. Prescriptions: New ondansetron 4 mg tablet,disintegrating 4 mg PO Q6H PRN (Reason: nausea and vomiting) Qty: 14 0RF hydrocodone-acetaminophen 5-325 mg tablet 1 tab PO Q4-6H PRN (Reason: pain) Qty: 14 0RF tamsulosin [Flomax] 0.4 mg capsule 0.4 mg PO DAILY Qty: 14 0RF No Action cholecalciferol (vitamin D3) [Vitamin D3] 5,000 unit Tablet 10,000 unit PO DAILY Qty: 0 losartan 25 MG tablet 50 mg PO BID Qty: 0 omeprazole 20 MG capsule,delayed release(DR/EC) 20 mg PO BID Qty: 0 Fish Oil 360 mg-144 mg- 216 mg-1,200 mg Capsule,Delayed Release(Dr/Ec) 3 cap PO DAILY Qty: 0 Rx Instructions: 2 tabs qam, 1 tab noon atorvastatin 20 mg Tablet 20 mg PO BEDTIME naproxen sodium [Aleve] 220 mg Capsule 220 mg PO BID Vimal-E 200 mg Tablet 200 mg PO BID metformin 500 mg Tablet 500 mg PO DAILY senna 8.6 mg Capsule 17.2 mg PO BID Trulicity 1.5 mg/0.5 mL Pen Injector 1.5 mg SUBCUT QWEEK Label Comments: Injects on Tuesdays fexofenadine 180 mg Tablet 180 mg PO DAILY acetaminophen 1,000 mg PO PRN PRN (Reason: Pain (Scale Score 4-6)) aspirin 81 mg Tablet,Delayed Release (Dr/Ec) 81 mg PO BID Qty: 90 0RF docusate sodium 100 mg Capsule 100 mg PO BID PRN (Reason: constipation) Qty: 60 0RF hydroxyzine pamoate 25 mg Capsule 25 mg PO Q6H PRN (Reason: muscle spasm) Qty: 120 1RF tramadol 50 mg tablet 50 mg PO Q4-6H PRN (Reason: pain (scale score 7-10)) Qty: 60 0RF Referrals: Haley Bills PA-C [Primary Care Provider] -
--- NOTE | 2022-09-18 08:47 | DI.CT.S_ITS ---
PROCEDURE: CT ABDOMEN PELVIS W CON INDICATIONS: Right-sided abdominal pain TECHNIQUE: After the administration of intravenous contrast, axial sections acquired from the lung bases to the pubic symphysis. Coronal and sagittal reformats were performed. For radiation dose reduction, the following was used: automated exposure control, adjustment of mA and/or kV according to patient size. COMPARISON: [facility], CT, ABDOMEN/PELVIS WITH CONTRAST, 04/05/2014, 11:13. FINDINGS: Image quality: Excellent. Lung bases: Unremarkable. Heart: No significant findings. ABDOMEN: Liver: No hepatic masses. Normal attenuation. Gallbladder: Surgically absent. Biliary ducts: Appropriate post cholecystectomy. No calculi. Pancreas: Diminutive. No ductal dilatation. Spleen: Normal. Adrenal Glands: No nodules. Kidneys and Ureters: Mild right hydronephrosis and three punctate nonobstructing intrarenal calculi. There is mild to moderate perinephric and periureteric inflammation. Moderate right hydroureter. Just below the pelvic inlet, there is a 5 x 5 mm stone with Hounsfield units of about 460. There is mild right retroperitoneal edema and trace fluid. The left kidney contains a large nonobstructing lower pole stone filling the lower pole calyx measuring 1.2 x 0.9 cm with average Hounsfield units of 860. No left hydronephrosis. No left-sided ureteral calcification. The kidneys demonstrate symmetric uptake of IV contrast. Stomach and Bowel: Surgical changes of gastric bypass. No small bowel obstruction. Prior right hemicolectomy. Mild sigmoid diverticulosis. Peritoneum: No abnormal intraperitoneal fluid. No free air. Ventral Wall: Prior hernia repair with mesh. Abdominal Nodes: No retroperitoneal or mesenteric adenopathy by size criteria. Vessels: Aorta and inferior vena cava are normal in size. PELVIS: Pelvic Organs: Normal uterus and ovaries. There are tubal ligation clips. Bladder: Decompressed urinary bladder. No calculi. Pelvic Nodes: No enlarged lymph nodes. Miscellaneous: No hernias are seen. Slightly peripherally enhancing 2.5 cm left labial cyst. Bones: Severe degenerative disc changes throughout the lumbar spine. IMPRESSION: 1. 5 mm obstructing right mid ureteral calculus resulting in right retroperitoneal inflammation and mild hydroureteronephrosis. 2. Prominent nonobstructing left lower pole intrarenal calculus and other punctate nonobstructing right intrarenal calculi. 3. Surgical changes to the intestines as described. No evidence of intestinal obstruction. 4. Chronic left labial cyst present previously. Dictated by: Doreen Iraheta M.D. on 09/18/2022 at 10:19 Approved by: Doreen Iraheta M.D. on 09/18/2022 at 10:29
[2022-09-18 08:48] LABS: Alanine Aminotransferase 19 IU/L (<35); Albumin 4.5 g/dL (3.5-5.0); Albumin Globulin Ratio 1.3 (1.0-2.8); Alkaline Phosphatase 103 U/L (38-126); Aspartate Aminotransferase 26 IU/L (14-36); BUN Creatinine Ratio 23.5 (6-22); Bilirubin Total 0.8 mg/dL (0.2-1.3); Blood Urea Nitrogen 20 mg/dL (7-17); Calcium 10.4 mg/dL (8.4-10.2); Carbon Dioxide 23 mmol/L (22-32); Chloride 102 mmol/L (98-107); Estimated Glomerular Filt Rate > 60 mL/min (>60); Globulin 3.6 g/dL (1.7-4.1); Glucose 137 mg/dL (80-110); HEMOLYSIS 36 (0-50); Lipase 45 U/L (23-300); Potassium 4.1 mmol/L (3.4-5.1); Sodium 138 mmol/L (137-145); Total Protein 8.1 g/dL (6.3-8.2)
[2022-09-18] MEDS: HYDROMORPHONE 1 MG INJ IV (09:11)
[2022-09-18] MEDS: ONDANSETRON 4 MG/2 ML INJ IV (09:12)
[2022-09-18 10:09] VITALS: O2SAT 98
[2022-09-18 10:10] VITALS: BP 143/71; PULSE 97; O2SAT 94
[2022-09-18 10:30] VITALS: PULSE 89; O2SAT 94
== END 2022-09-18 11:09 | disposition home or self-care (01) ==
PROVIDERS: Emergency Provider Emergency Medicine; Family Provider Physician Assistant Medical; PCP Physician Assistant Medical
DX: N23 Unspecified renal colic (principal); Z79.899 Other long term (current) drug therapy
CPT/HCPCS: 36415; 74177; 80053; 81003; 83690; 85025; 85610; 96374; 96375; 99284; J1170; J2405; Q9967

== ENCOUNTER → 2022-10-22 12:09 | Outpatient (CLI) | payer MEDICARE, SELFPAY ==
[2022-06-17 11:22] VITALS: BMI 40.1
--- NOTE | 2022-10-22 | DI.US.S_ITS ---
PROCEDURE: US RENAL COMPLETE INDICATIONS: HYDRONEPHROSIS RT/KIDNEY STONES TECHNIQUE: Real-time scanning was performed of the kidneys and bladder, with image documentation. COMPARISON: [facility], CT, CT ABDOMEN PELVIS WITH CONTRAST, 08/15/2018, 13:56. [facility], CT, CT ABDOMEN PELVIS W CON, 09/18/2022, 9:36. FINDINGS: Kidneys: Kidneys are normal in size. Right kidney measures 11.0 cm long; left kidney measures 11.5 cm long. Right renal cortical thickness is 1.3 cm; left renal cortical thickness is 1.2 cm. Renal cortical echotexture is normal. Bilateral nonobstructive renal calculi. There is a 3.8 mm stone in the lateral aspect of the mid right kidney. A 4.4 cm stone is seen in the inferior pole of the left kidney. No hydronephrosis. No suspicious solid mass lesions. Bladder: Pre-void bladder volume is near empty. Pre-void images demonstrate no intraluminal masses or stones. On pre-void images, left ureteral jet is noted with color Doppler interrogation. (Of note, ureteral jets may not be detectable in up to 25% of cases due to insufficient differences in specific gravity between ureteral and bladder urine). Miscellaneous: No free pelvic fluid. IMPRESSION: 1. Nephrolithiasis bilaterally. No hydronephrosis. Dictated by: Santiago Cutler M.D. on 10/22/2022 at 21:02 Approved by: Santiago Cutler M.D. on 10/22/2022 at 21:09
== END ==
PROVIDERS: Family Provider Physician Assistant Medical; PCP Physician Assistant Medical; Referring Provider Nurse Practitioner; Visit Provider Nurse Practitioner
DX: N20.0 Calculus of kidney (principal)
CPT/HCPCS: 76770

== ENCOUNTER → 2023-01-21 09:31 | Outpatient (CLI) | payer MEDICARE, SELFPAY ==
[2022-06-17 11:22] VITALS: BMI 40.1
--- NOTE | 2023-01-21 | DI.MG.S_ITS ---
BILATERAL DIGITAL DIAGNOSTIC MAMMOGRAM 3D/2D: 01/21/2023 CLINICAL: Right breast lump. Comparison is made to exams dated: 10/16/2021 mammogram, 08/07/2020 mammogram, and 06/14/2017 mammogram - [facility]. Both breasts are almost entirely fatty (category a/<25% glandular tissue). There is a new benign 1.6 cm round fat containing oil cyst with a circumscribed margins in the right breast at 1 o'clock anterior depth. This is seen in additional views. This correlates as palpated and with area of prior trauma. There also is a benign 8 mm round fat containing oil cyst with peripheral calcifications in the right breast at 1 o'clock anterior depth. This is seen in additional views. This correlates as palpated and also is within the area of trauma. There are several other very small round peripheral calcifications consistent with oil cysts/ fat necrosis in this quadrant. No other significant masses, calcifications, or other findings are seen in either breast. IMPRESSION: BENIGN The palpable abnormalities correspond to benign oil cysts in the upper inner right breast. This is consistent with a history of trauma. There is no mammographic evidence of malignancy. Return to annual mammogram screening schedule is recommended. Findings and recommendations were conveyed to the patient at time of exam. Based on the Tyrer Cuzick model (a risk assessment model) the patient's lifetime risk is 3.7% and her 10 year risk is 2.7%. According to the ACR, ACS, and NCCN guidelines, an annual breast MRI exam along with mammogram is recommended if the patient's lifetime risk is 20% or greater. This exam was interpreted at Station ID: [id number]. NOTE: For mammograms, a report in lay terms will be sent to the patient. Approximately 15% of breast malignancies will not be visualized mammographically. In the management of a palpable breast mass, a negative mammogram must not discourage biopsy of a clinically suspicious lesion. Electronically Signed By: Doreen spangler/:01/21/2023 10:26:38 letter sent: Normal Exam ACR BI-RADS Category 2: Benign Finding(s) [id number]
== END ==
PROVIDERS: Family Provider Physician Assistant Medical; PCP Physician Assistant Medical; Referring Provider Physician Assistant Medical; Visit Provider Physician Assistant Medical
DX: R92.8 Other abnormal and inconclusive findings on diagnostic imaging of breast (principal); N63.0 Unspecified lump in unspecified breast; N63.15 Unspecified lump in the right breast, overlapping quadrants
CPT/HCPCS: 77066; G0279

== ENCOUNTER → 2024-03-07 09:04 | Outpatient (CLI) | payer MEDICARE, SELFPAY ==
[2022-06-17 11:22] VITALS: BMI 40.1
--- NOTE | 2024-03-07 09:05 | DI.ECHO.S_ITS ---
[facility] : : [address] : : [place] : : [id number] : : Phone: [phone] Echocardiogram Report + + :Name: NOEL HAIR Study Date: 03/07/2024 Height: 63 in : :Hospital ReadingLocation: Weight: 214 lb : : Gender: Female BSA: 2.0 m2 : :: 1950 Age: 73 yrs BP: 146/99 mmHg: :Reason For Study: EDEMA LEG : :Ordering Physician: GUIDO, : :HALINA Performed By: Ignacia Griffin : :Referring: HALINA LORA : + + Interpretation Summary The left ventricle is normal in size. Left ventricular ejection fraction is estimated to be 55 +/- 5%. Diastolic parameters suggest a relaxation abnormality of the left ventricle, consistent with probable normal filling pressures. The right ventricle is normal in size and function. The right ventricular systolic pressure is estimated to be at least 25 mmHg based on an estimated right atrial pressure of 3 mm Hg. The left atrial size is normal. There is mild aortic regurgitation. The aortic root is normal size. Procedure: A two-dimensional transthoracic echocardiogram with color flow and Doppler was performed. The study quality was technically adequate. There is no prior echocardiogram noted for this patient. The patient had occasional PVCs during the exam. The patient was in sinus rhythm with heart rates between 81-88 bpm during the exam. Left Ventricle: The left ventricle is normal in size. Left ventricular wall thickness is borderline increased. Left ventricular ejection fraction is estimated to be 55 +/- 5%. Left ventricular wall motion is normal. Diastolic parameters suggest a relaxation abnormality of the left ventricle, consistent with probable normal filling pressures. Right Ventricle: The right ventricle is normal in size and function. Atria: The left atrial size is normal. Right atrial size is normal. There is no Doppler evidence for an interatrial shunt. Mitral Valve: The mitral valve is normal in structure and function. There is trace mitral regurgitation. Aortic Valve: The aortic valve is trileaflet. The aortic valve opens well. There is no aortic valve stenosis. There is mild aortic regurgitation. Tricuspid Valve: The tricuspid valve is normal in structure and function. There is trace tricuspid regurgitation. The right ventricular systolic pressure is estimated to be at least 25 mmHg based on an estimated right atrial pressure of 3 mm Hg. Pulmonic Valve: The pulmonic valve leaflets are thin and pliable; valve motion is normal. There is mild pulmonic regurgitation. Great Vessels: The aortic root is normal size. The dimensions of the ascending aorta are normal. The IVC is of normal diameter and collapses greater than 50% with a sniff. This suggests a low right atrial pressure of 3 mm Hg. Pericardium/ Pleura There is no pericardial effusion. There is no pleural effusion. MMode/2D Measurements & Calculations LVIDd: 4.7 cm LVOT diam: 2.1 cm LVIDs: 3.0 cm Ao root diam: 3.5 cm FS: 35.4 % asc Aorta Diam: 3.4 cm IVSd: 1.0 cm Ao Arch Diam (Prox Trans): 2.8 cm LVPWd: 1.2 cm LV narvaez. diameter/BSA (cm/m^2): 2.3 LV sys. diameter/BSA (cm/m^2): 1.5 LA A2 area: 18.4 cm2 RA long axis: 4.9 cm LA A4 area: 18.6 cm2 RA area: 14.5 cm2 LA length (vol): 5.6 cm RA vol: 36.3 ml LA vol: 51.9 ml RA : 18.2 ml/m2 LA vol index: 26.1 ml/m2 IVC diam: 1.3 cm RVD1 (basal): 3.5 cm RVD2 (mid): 2.9 cm TAPSE: 1.8 cm Doppler Measurements & Calculations Ao V2 max: 126.4 cm/sec LVOT Max Corbin: 66.7 cm/sec Ao V2 mean: 92.2 cm/sec LV V1 max P.8 mmHg Ao max P.4 mmHg LV V1 VTI: 13.3 cm Ao mean P.7 mmHg KACY(I,D): 1.8 cm2 Ao V2 VTI: 24.3 cm KACY(V,D): 1.8 cm2 sev ratio: 0.55 KACY indexed to BSA (cm^2/m^2): 0.92 AI P1/2t: 529.4 msec AI dec slope: 248.4 cm/sec2 MV E max corbin: 51.3 cm/sec TR max corbin: 236.9 cm/sec MV A max corbin: 75.1 cm/sec TR max P.4 mmHg MV E/A: 0.68 PA V2 max: 84.3 cm/sec Med Peak E' Corbin: 4.4 cm/sec PA V2 mean: 61.2 cm/sec E/E' med: 11.5 PA mean P.6 mmHg Lat Peak E' Corbin: 6.1 cm/sec PA pr(Accel): 41.3 mmHg E/E' lat: 8.4 E/e' average: 10.0 MV dec time: 0.23 sec SV(LVOT): 44.5 ml Reading Physician:12:46 PM
--- NOTE | 2024-03-07 09:05 | DI.MG.S_ITS ---
BILATERAL DIGITAL SCREENING MAMMOGRAM 3D/2D WITH CAD: 03/07/2024 CLINICAL: Routine screening. Comparison is made to exams dated: 01/21/2023 mammogram - [facility], 10/16/2021 mammogram, and 08/07/2020 mammogram - [facility]. There are scattered areas of fibroglandular density in both breasts (category b / 25%-50% glandular tissue). Current study was also evaluated with a Computer Aided Detection (CAD) system. There are benign calcifications in both breasts. No significant masses, calcifications, or other findings are seen in either breast. There has been no significant interval change. IMPRESSION: BENIGN There is no mammographic evidence of malignancy. A 1 year screening mammogram is recommended. Based on the Tyrer Cuzick model (a risk assessment model) the patient's lifetime risk is 5.2% and her 10 year risk is 4.2%. According to the ACR, ACS, and NCCN guidelines, an annual breast MRI exam along with mammogram is recommended if the patient's lifetime risk is 20% or greater. This exam was interpreted at Station ID: [id number]. NOTE: For mammograms, a report in lay terms will be sent to the patient. Approximately 15% of breast malignancies will not be visualized mammographically. In the management of a palpable breast mass, a negative mammogram must not discourage biopsy of a clinically suspicious lesion. Electronically Signed By: Abrahan trujillo/malika:03/07/2024 17:38:40 letter sent: Normal Exam ACR BI-RADS Category 2: Benign Finding(s) 3342F
== END ==
LOC: ECHO 09:04
PROVIDERS: Family Provider Physician Assistant Medical; PCP Physician Assistant Medical; Referring Provider Physician Assistant Medical; Visit Provider Physician Assistant Medical
DX: Z12.31 Encounter for screening mammogram for malignant neoplasm of breast (principal); I35.1 Nonrheumatic aortic (valve) insufficiency; R92.323 Mammographic fibroglandular density, bilateral breasts; I37.1 Nonrheumatic pulmonary valve insufficiency; R60.0 Localized edema
CPT/HCPCS: 77063; 77067; 93306

== ENCOUNTER → 2024-05-06 14:17 | Outpatient (CLI) | payer MEDICARE, SELFPAY ==
[2022-06-17 11:22] VITALS: BMI 40.1
--- NOTE | 2024-05-06 14:20 | DI.MRI.S_ITS ---
PROCEDURE: MR HEAD/BRAIN WO/W CON INDICATIONS: Transient cerebral ischemic attack, unspecified TECHNIQUE: Noncontrast axial T1 spin echo, axial T2 fast spin echo, sagittal and axial FLAIR, coronal T2 fast spin echo, axial gradient echo, axial diffusion and ADC through the brain. After the administration of contrast, axial and coronal and sagittal T1 spin echo with fat saturation through the brain. COMPARISON: [facility], MR, MR HEAD/BRAIN WO/W CON, 05/27/2022, 17:55. FINDINGS: Image quality: Excellent. CSF spaces: Basal cisterns are patent. No extra-axial fluid collections. Ventricles are normal in size and shape. Brain: No midline shift. No intracranial bleeds or masses. No abnormal intracranial enhancement. There is cerebral volume loss for age. There is periventricular white matter chronic small vessel ischemic change. The brainstem appears normal. Diffusion-weighted images demonstrate no acute infarct. No chronic ischemic insults. Normal intravascular flow voids are present. Skull and face: Calvarial marrow is normal in signal. Bilateral lens replacements. Otherwise, the orbits are unremarkable. Sinuses: Mild diffuse paranasal sinus mucosal thickening. The mastoid air cells are clear. IMPRESSION: No acute or subacute infarct. No acute intracranial abnormalities. Age-appropriate global volume loss and chronic microvascular ischemic changes. Dictated by: Franco Pang M.D. on 05/08/2024 at 10:24 Approved by: Franco Pang M.D. on 05/08/2024 at 10:27
== END ==
LOC: MRI 14:18
PROVIDERS: PCP Physician Assistant Medical; Referring Provider Physician Assistant Medical; Visit Provider Physician Assistant Medical
DX: G45.9 Transient cerebral ischemic attack, unspecified (principal)
CPT/HCPCS: 70553; A9579

== ENCOUNTER 2024-06-02 08:53 | Inpatient (IN) | payer MEDICARE, SELFPAY ==
[2022-06-17 11:22] VITALS: BMI 40.1
[2024-06-02] VITALS (15 sets, daily range): BP systolic 116–126; BP diastolic 58–85; PULSE 101–111; RESP 16–20; TEMP 35.6–37.2; O2SAT 93–97; BMI 36.3
--- NOTE | 2024-06-02 09:19 | ED_ITS ---
HPI - General Adult General Chief complaint: Abdominal Pain Stated complaint: fall 05/25, abdomen injury Time Seen by Provider: 06/02/24 09:19 Source: patient Mode of arrival: Ambulatory Limitations: no limitations History of Present Illness HPI narrative: Patient is a 73-year-old female. Has had multiple abdominal surgeries to include a gastric stapling for weight loss. Approximately 8 days ago she sustained an injury when she was trying to lift a heavy coffee table up onto a couch. States she fell forward and hit her abdomen either on the coffee table or on the couch. She states that she feels like her abdomen is bruised. Has not had a bowel movement. Has also been coughing/vomiting up dark substance. No problems breathing. No problems urinating. Related Data Home Medications Medication Instructions Recorded Confirmed cholecalciferol (vitamin D3) 125 10,000 unit PO DAILY ##0 07/08/10 06/17/22 mcg (5,000 unit) tablet (Vitamin D3) losartan 25 mg tablet 50 mg PO BID ##0 04/27/11 06/17/22 omega-3 360 mg-dha 144 mg-epa 216 3 cap PO DAILY ##0 04/27/11 06/17/22 mg-fish oil 1,200 mg capsule,del rel (Fish Oil) omeprazole 20 mg capsule,delayed 20 mg PO BID ##0 04/27/11 06/17/22 release atorvastatin 20 mg tablet 20 mg PO BEDTIME 09/28/19 06/17/22 naproxen sodium 220 mg capsule 220 mg PO BID 09/28/19 06/17/22 (Aleve) s-adenosylmethionine 200 mg tablet 200 mg PO BID 09/28/19 06/17/22 (FERNANDEZ-e) dulaglutide 1.5 mg/0.5 mL 1.5 mg SUBCUT QWEEK 06/09/22 06/17/22 subcutaneous pen injector (Trulicity) metformin 500 mg tablet 500 mg PO DAILY 06/09/22 06/17/22 sennosides 8.6 mg capsule (senna) 17.2 mg PO BID 06/09/22 06/17/22 fexofenadine 180 mg tablet 180 mg PO DAILY 06/10/22 06/17/22 acetaminophen 1,000 mg PO PRN PRN Pain (Scale 06/17/22 06/18/22 Score 4-6) Previous Rx's Medication Instructions Recorded aspirin 81 mg tablet,delayed 81 mg PO BID #90 tabs 06/18/22 release docusate sodium 100 mg capsule 100 mg PO BID PRN constipation #60 06/18/22 caps hydroxyzine pamoate 25 mg capsule 25 mg PO Q6H PRN muscle spasm #120 06/18/22 caps tramadol 50 mg tablet 50 mg PO Q4-6H PRN pain (scale 06/18/22 score 7-10) #60 tabs hydrocodone 5 mg-acetaminophen 325 1 tab PO Q4-6H PRN pain #14 tabs 09/18/22 mg tablet ondansetron 4 mg disintegrating 4 mg PO Q6H PRN nausea and 09/18/22 tablet vomiting #14 tabs tamsulosin 0.4 mg capsule (Flomax) 0.4 mg PO DAILY #14 caps 09/18/22 Allergies Allergy/AdvReac Type Severity Reaction Status Date / Time Sulfa (Sulfonamide Allergy Severe ITCHING Verified 06/17/22 06:42 Antibiotics) ascorbic acid Allergy Intermediate Rash Verified 06/17/22 06:42 citalopram [From Celexa] Allergy Pt does Verified 06/17/22 06:42 not remember reaction doxycycline Allergy Pt does Verified 06/17/22 06:42 not remember reaction escitalopram [From Lexapro] Allergy Pt does Verified 06/17/22 06:42 not remember reaction lisinopril Allergy Pt does Verified 06/17/22 06:42 not remember reaction meloxicam [From Mobic] Allergy Pt does Verified 06/17/22 06:42 not remember reaction metronidazole [From Flagyl] Allergy Pt does Verified 06/17/22 06:42 not remember reaction montelukast [From Singulair] Allergy Pt does Verified 06/17/22 06:42 not remember reaction piroxicam [From Feldene] Allergy Pt does Verified 06/17/22 06:42 not remember reaction sulfamethoxazole Allergy Pt does Verified 06/17/22 06:42 [From Septra] not remember reaction sulfur dioxide Allergy Pt does Verified 06/17/22 06:42 not remember reaction trimethoprim [From Septra] Allergy Pt does Verified 06/17/22 06:42 not remember reaction Influenza Virus Vaccines AdvReac Severe Hives Verified 06/17/22 06:42 oxycodone [From Percocet] AdvReac Severe Hallucinati Verified 06/17/22 06:42 ng propoxyphene AdvReac Severe Hallucinati Verified 06/17/22 06:42 [From Spcet-N] ng codeine AdvReac Pt unsure, Verified 06/17/22 06:42 thinks possibly nausea Review of Systems Review of Systems ROS Unobtainable: All systems reviewed & are unremarkable except as noted in HPI and below Patient History Medical History GERD (gastroesophageal reflux disease) Osteoarthritis Low back pain Right shoulder pain History of prosthetic unicompartmental arthroplasty of left knee Small bowel obstruction (~2009) HLD (hyperlipidemia) HTN (hypertension) Pneumonia (~1973) Abdominal hernia Surgical History (Updated 06/18/22 @ 09:21 by Lorena Urbina PA-C) Status post left 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) H/O shoulder surgery Hx of tonsillectomy Hx of varicose vein stripping History of bilateral tubal ligation (~1984) Hx of cholecystectomy (~1977) Hx of appendectomy History of hernia repair Hx of colectomy (~2003) H/O medial meniscus repair of right knee (2007) H/O gastric bypass (~1979) Social History household members: none Smoking Status: Never smoker alcohol intake: former Smoking Status: Never smoker alcohol intake frequency: holidays/special occasions only Substance Use Type: does not use Exam Initial Vital Signs Initial Vital Signs: Vital Signs Temperature 98.5 F 06/02/24 09:11 Pulse Rate 105 H 06/02/24 09:11 Respiratory Rate 16 06/02/24 09:11 Blood Pressure 125/85 06/02/24 09:11 Pulse Oximetry 97 06/02/24 09:11 Oxygen Delivery Method Room Air 06/02/24 09:11 Const General: cooperative, comfortable and No ill appearing HENMT Head: normal to inspection and normocephalic GI Inspection: non-distended Palpation: soft and tender (Lower abdomen) Skin Other: Well-healed surgical scars midline abdomen. Bruising mid abdomen Neuro General: patient alert and patient awake Course Orders Ordered: ED Orders 06/02/24 09:20 CT abdomen pelvis w con Stat 06/02/24 09:27 Complete Blood Count AUTO DIFF Stat Comprehensive Metabolic Panel Stat Lipase Stat 06/02/24 10:42 Consult to General Surgery Stat 06/02/24 10:43 Consult to General Surgery Stat Sodium Chloride (Normal Saline 0.9%) 1,000 mls @ 100 mls/hr IV CONT ANNABEL Vital Signs Vital signs: Vital Signs - 8 hr 06/02/24 09:11 Temperature 98.5 F Pulse Rate 105 H Respiratory Rate 16 Blood Pressure 125/85 Pulse Oximetry 97 Oxygen Delivery Method Room Air Medical Decision Making Lab Data Lab results reviewed: Yes I reviewed the patient's lab results. 06/02/24 09:27 06/02/24 09:27 Labs: Lab Results 06/02/24 Range/Units 09:27 WBC 7.1 (4.5-11.0) X10^3/uL RBC 4.93 (4.0-5.2) X10^6/uL Hgb 15.4 (12.0-16.0) g/dL Hct 45.5 (36-46) % MCV 92.3 (80-100) fL MCH 31.2 (26-34) PG MCHC 33.8 (30-36) % RDW 15.1 H (11.6-14.8) % Plt Count 278 (150-400) X10^3/uL Neut % (Auto) 76.8 H (50-75) % Lymph % (Auto) 13.0 L (25-40) % [place] % (Auto) 8.8 (3-14) % Eos % (Auto) 0.9 L (2-4) % Baso % (Auto) 0.5 (0-2) % Neut # (Auto) 5500 (2499-0376) /uL Lymph # (Auto) 900 L (5828-2742) /uL [place] # (Auto) 600 (0-900) /uL Eos # (Auto) 100 (0-450) /uL Baso # (Auto) 0 (0-100) /uL Sodium 133 L (137-145) mmol/L Potassium 4.8 (3.4-5.1) mmol/L Chloride 100 (98-107) mmol/L Carbon Dioxide 20 L (22-32) mmol/L BUN 30 H (7-17) mg/dL Creatinine 1.38 H (0.52-1.04) mg/dL Estimated GFR 40 L (>60) mL/min BUN/Creatinine Ratio 21.7 (6-22) Glucose 138 H (80-110) mg/dL Calcium 9.9 (8.4-10.2) mg/dL Total Bilirubin 1.7 H (0.2-1.3) mg/dL AST 26 (14-36) IU/L ALT 18 (<35) IU/L Alkaline Phosphatase 85 (38-126) U/L Total Protein 7.0 (6.3-8.2) g/dL Albumin 4.3 (3.5-5.0) g/dL Globulin 2.7 (1.7-4.1) g/dL Albumin/Globulin Ratio 1.6 (1.0-2.8) Lipase 38 (23-300) U/L Imaging Data CT scan - abdomen/pelvis: Radiologist's Impression: PROCEDURE: CT ABDOMEN PELVIS W CON INDICATIONS: hx of stomach stapling with abdominal trauma TECHNIQUE: After the administration of intravenous contrast, axial sections acquired from the lung bases to the pubic symphysis. Coronal and sagittal reformats were performed. For radiation dose reduction, the following was used: automated exposure control, adjustment of mA and/or kV according to patient size. COMPARISON: [facility], CT, CT ABDOMEN PELVIS W CON, 09/18/2022, 9:36. FINDINGS: Image quality: Diagnostic. Lower Chest: Mild bibasilar subsegmental atelectasis. ABDOMEN: Liver: No solid mass. Gallbladder: Surgically absent. Biliary ducts: No biliary dilation. Pancreas: No ductal dilation. Spleen: Size is within normal limits. Adrenal Glands: No adrenal nodules. Kidneys and Ureters: Nonobstructing left renal stone measuring 1.1 centimeters. No hydronephrosis. No solid mass. No complex renal cystic lesion which requires follow up. Stomach and Bowel: Postsurgical changes from gastric bypass. Normal colonic caliber, without significant wall thickening. Multiple dilated loops of small bowel with air-fluid levels. Possible transition point within the lower anterior pelvic wall in a region of postsurgical changes. Peritoneum: Small volume ascites. No free air. Ventral Wall: No significant ventral hernia. Abdominal Nodes: No retroperitoneal or mesenteric adenopathy by size criteria. Vessels: Aorta and inferior vena cava are normal in size. Atherosclerotic vascular calcifications. PELVIS: Pelvic Organs: Cyst in the region of the left labia measuring 2.2 centimeters, possibly a Bartholin gland cyst stable compared to prior. Bladder: Decompressed, limiting evaluation. Pelvic Nodes: No enlarged lymph nodes. Miscellaneous: No inguinal hernias are seen. Bones: No aggressive osseous abnormality. Decreased osseous mineralization. Degenerative changes of the spine with levo scoliotic curvature. IMPRESSION: 1. Multiple dilated loops of small bowel with air-fluid levels. Possible transition point within the lower anterior pelvic wall in the region of postsurgical changes, possibly from hernia repair. Findings are concerning for obstruction. 2. Small volume free fluid within the abdomen, may be reactive. 3. Nonobstructing left renal stone measuring 1.1 centimeters. [facility] Narrative Medical decision making narrative: Patient does have bruising in the lower abdomen and has well-healed surgical scars midline consistent with her prior history. CT scan shows findings that can be consistent with small-bowel obstruction. Discussed the case with Dr. Waldrop on-call for General surgery who recommended the patient be admitted to the medicine service. No surgery currently however it is a possibility and she would be happy to follow along. Then discuss the case with Dr. Frost hospitalist on-call who will admit. Discussed the findings of the CT scan with the patient in the need for admission. She expressed understanding and agreement as well. Discharge Plan Departure Patient Disposition: Admitted as Observation Clinical Impression: SBO (small bowel obstruction) Admit Date/Time: 06/02/24 11:24 Admit Provider: Juan Alberto Frost V
[2024-06-02 09:33] LABS: Add Manual Diff / Slide Review NO; Basophils Absolute Auto 0 /uL (0-100); Basophils Percent Auto 0.5 % (0-2); Eosinophils Absolute Auto 100 /uL (0-450); Eosinophils Percent Auto 0.9 % (2-4); Hematocrit 45.5 % (36-46); Hemoglobin 15.4 g/dL (12.0-16.0); Lymphocytes Absolute Auto 900 /uL (1100-4500); Mean Corpuscular HGB Conc 33.8 % (30-36); Mean Corpuscular Hemoglobin 31.2 PG (26-34); Mean Corpuscular Volume 92.3 fL (80-100); Monocytes Absolute Auto 600 /uL (0-900); Monocytes Percent Auto 8.8 % (3-14); Neutrophils Absolute Auto 5500 /uL (1500-7000); Neutrophils Percent Auto 76.8 % (50-75); Platelet Count 278 X10^3/uL (150-400); Red Blood Cell Count 4.93 X10^6/uL (4.0-5.2); Red Cell Distribution Width 15.1 % (11.6-14.8); White Blood Cell Count 7.1 X10^3/uL (4.5-11.0)
[2024-06-02 09:49] LABS: Alanine Aminotransferase 18 IU/L (<35); Albumin 4.3 g/dL (3.5-5.0); Albumin Globulin Ratio 1.6 (1.0-2.8); Alkaline Phosphatase 85 U/L (38-126); Aspartate Aminotransferase 26 IU/L (14-36); BUN Creatinine Ratio 21.7 (6-22); Bilirubin Total 1.7 mg/dL (0.2-1.3); Blood Urea Nitrogen 30 mg/dL (7-17); Calcium 9.9 mg/dL (8.4-10.2); Carbon Dioxide 20 mmol/L (22-32); Chloride 100 mmol/L (98-107); Estimated Glomerular Filt Rate 40 mL/min (>60); Globulin 2.7 g/dL (1.7-4.1); Glucose 138 mg/dL (80-110); HEMOLYSIS < 15 (0-50); Lipase 38 U/L (23-300); Potassium 4.8 mmol/L (3.4-5.1); Sodium 133 mmol/L (137-145)
--- NOTE | 2024-06-02 10:44 | PM.CALLCOV.1 ---
Call Coverage Note Note Date of Patient Contact: 06/02/24 Narrative of Care Provided: Looks like acute on chronic SBO with fecalization of the small bowel. No hernia. Bowel rest for now. No NGT required.
[2024-06-02] MEDS: SODIUM CHLORIDE 0.9% 1,000 ML 100 ML IV (11:39)
--- NOTE | 2024-06-02 13:37 | P.HP_ITS ---
History of Present Illness History of Present Illness Date Patient Seen: 06/02/24 Time Patient Seen: 13:45 Date of Onset of Symptoms: 05/25/24 Chief complaint: fall 05/25, abdomen injury Narrative: Per ER note: HPI narrative: Patient is a 73-year-old female. Has had multiple abdominal surgeries to include a gastric stapling for weight loss. Approximately 8 days ago she sustained an injury when she was trying to lift a heavy coffee table up onto a couch. States she fell forward and hit her abdomen either on the coffee table or on the couch. She states that she feels like her abdomen is bruised. Has not had a bowel movement. Has also been coughing/vomiting up dark substance. No problems breathing. No problems urinating. The patient reports to this provider that her last formed bowel movement was over week ago. She has been using senna and stool softeners which have not seemed to help. She denies chest pain, shortness of breath, or bleeding symptoms. 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) H/O shoulder surgery Hx of tonsillectomy Hx of varicose vein stripping History of bilateral tubal ligation (~1984) Hx of cholecystectomy (~1977) Hx of appendectomy History of hernia repair Hx of colectomy (~2003) H/O medial meniscus repair of right knee (2007) H/O gastric bypass (~1979) Social History household members: none Smoking Status: Never smoker alcohol intake: former Meds Home Medications and Allergies Home Medications Medication Instructions Recorded Confirmed Type cholecalciferol (vitamin D3) 125 10,000 unit PO DAILY ##0 07/08/10 06/17/22 History mcg (5,000 unit) tablet (Vitamin D3) losartan 25 mg tablet 50 mg PO BID ##0 04/27/11 06/17/22 History omega-3 360 mg-dha 144 mg-epa 216 3 cap PO DAILY ##0 04/27/11 06/17/22 History mg-fish oil 1,200 mg capsule,del rel (Fish Oil) omeprazole 20 mg capsule,delayed 20 mg PO BID ##0 04/27/11 06/17/22 History release atorvastatin 20 mg tablet 20 mg PO BEDTIME 09/28/19 06/17/22 History naproxen sodium 220 mg capsule 220 mg PO BID 09/28/19 06/17/22 History (Aleve) s-adenosylmethionine 200 mg tablet 200 mg PO BID 09/28/19 06/17/22 History (FERNANDEZ-e) dulaglutide 1.5 mg/0.5 mL 1.5 mg SUBCUT QWEEK 06/09/22 06/17/22 History subcutaneous pen injector (Trulicity) metformin 500 mg tablet 500 mg PO DAILY 06/09/22 06/17/22 History sennosides 8.6 mg capsule (senna) 17.2 mg PO BID 06/09/22 06/17/22 History fexofenadine 180 mg tablet 180 mg PO DAILY 06/10/22 06/17/22 History acetaminophen 1,000 mg PO PRN PRN Pain (Scale 06/17/22 06/18/22 History Score 4-6) aspirin 81 mg tablet,delayed 81 mg PO BID #90 tabs 06/18/22 Rx release docusate sodium 100 mg capsule 100 mg PO BID PRN constipation #60 06/18/22 Rx caps hydroxyzine pamoate 25 mg capsule 25 mg PO Q6H PRN muscle spasm #120 06/18/22 Rx caps tramadol 50 mg tablet 50 mg PO Q4-6H PRN pain (scale 06/18/22 Rx score 7-10) #60 tabs hydrocodone 5 mg-acetaminophen 325 1 tab PO Q4-6H PRN pain #14 tabs 09/18/22 Rx mg tablet ondansetron 4 mg disintegrating 4 mg PO Q6H PRN nausea and 09/18/22 Rx tablet vomiting #14 tabs tamsulosin 0.4 mg capsule (Flomax) 0.4 mg PO DAILY #14 caps 09/18/22 Rx Allergies Allergy/AdvReac Type Severity Reaction Status Date / Time Sulfa (Sulfonamide Allergy Severe ITCHING Verified 06/17/22 06:42 Antibiotics) ascorbic acid Allergy Intermediate Rash Verified 06/17/22 06:42 citalopram [From Celexa] Allergy Pt does Verified 06/17/22 06:42 not remember reaction doxycycline Allergy Pt does Verified 06/17/22 06:42 not remember reaction escitalopram [From Lexapro] Allergy Pt does Verified 06/17/22 06:42 not remember reaction lisinopril Allergy Pt does Verified 06/17/22 06:42 not remember reaction meloxicam [From Mobic] Allergy Pt does Verified 06/17/22 06:42 not remember reaction metronidazole [From Flagyl] Allergy Pt does Verified 06/17/22 06:42 not remember reaction montelukast [From Singulair] Allergy Pt does Verified 06/17/22 06:42 not remember reaction piroxicam [From Feldene] Allergy Pt does Verified 06/17/22 06:42 not remember reaction sulfamethoxazole Allergy Pt does Verified 06/17/22 06:42 [From Septra] not remember reaction sulfur dioxide Allergy Pt does Verified 06/17/22 06:42 not remember reaction trimethoprim [From Septra] Allergy Pt does Verified 06/17/22 06:42 not remember reaction Influenza Virus Vaccines AdvReac Severe Hives Verified 06/17/22 06:42 oxycodone [From Percocet] AdvReac Severe Hallucinati Verified 06/17/22 06:42 ng propoxyphene AdvReac Severe Hallucinati Verified 06/17/22 06:42 [From Darvocet-N] ng codeine AdvReac Pt unsure, Verified 06/17/22 06:42 thinks possibly nausea Review of Systems Review of Systems ROS: Yes All systems reviewed with the patient and are negative except as otherwise documented Exam Vital Signs (past 8 hours): - 06/02/24 09:08 06/02/24 09:09 06/02/24 09:09 Temperature Pulse Rate 108 H Respiratory Rate Blood Pressure 125/58 L Pulse Oximetry 94 97 Oxygen Delivery Method 06/02/24 09:11 06/02/24 09:30 06/02/24 09:30 Temperature 98.5 F Pulse Rate 105 H 105 H Respiratory Rate 16 Blood Pressure 125/85 122/60 Pulse Oximetry 97 96 Oxygen Delivery Method Room Air 06/02/24 10:05 06/02/24 10:30 06/02/24 11:00 Temperature Pulse Rate 101 H 104 H 102 H Respiratory Rate Blood Pressure Pulse Oximetry 96 96 Oxygen Delivery Method 06/02/24 11:30 06/02/24 12:00 06/02/24 12:30 Temperature Pulse Rate 102 H 104 H 105 H Respiratory Rate Blood Pressure Pulse Oximetry 97 97 97 Oxygen Delivery Method 06/02/24 13:00 06/02/24 13:23 Temperature 98.9 F Pulse Rate 103 H Respiratory Rate 16 Blood Pressure 126/61 Pulse Oximetry 96 Oxygen Delivery Method Room Air Oxygen Delivery Method Room Air Narrative Exam Narrative: GENERAL: This is a well-nourished, well-developed patient, in no apparent distress. HEAD: Atraumatic. Normocephalic. No temporal or scalp tenderness. EYES: Pupils equal round and reactive. Extraocular motions intact. No scleral icterus. No injection or drainage. ENT: Mucous membranes pink and moist. NECK: Trachea midline. No JVD, bruits or lymphadenopathy. Supple, nontender, no meningeal signs. CARDIOVASCULAR: Regular rate and rhythm without murmurs, gallops, or rubs. RESPIRATORY: Clear to auscultation. GASTROINTESTINAL: Abdomen soft, non-tender, nondistended. 5 cm light yellow ecchymosis on right upper abdomen. EXTREMITIES: No clubbing, cyanosis, or edema. BACK: Nontender without deformity or crepitance. No flank tenderness. NEUROLOGIC: Alert, oriented, speech fluent, full upper and lower motor strength, no focal deficits evident. DERMATOLOGIC: Intertriginous erythematous rash on lower abdominal skin folds. Lower extremity scattered ecchymoses, including a large left lateral lr 15 cm plus ecchymosis, that the patient states she sustained in October. Objective Imaging CT scan - abdomen: Radiologist's impression: 1. Multiple dilated loops of small bowel with air-fluid levels. Possible transition point within the lower anterior pelvic wall in the region of postsurgical changes, possibly from hernia repair. Findings are concerning for obstruction. 2. Small volume free fluid within the abdomen, may be reactive. 3. Nonobstructing left renal stone measuring 1.1 centimeters. Labs 06/02/24 09:27 06/02/24 09:27 Labs: Laboratory Results - last 24 hr 06/02/24 09:27 WBC 7.1 RBC 4.93 Hgb 15.4 Hct 45.5 MCV 92.3 MCH 31.2 MCHC 33.8 RDW 15.1 H Plt Count 278 Neut % (Auto) 76.8 H Lymph % (Auto) 13.0 L [place] % (Auto) 8.8 Eos % (Auto) 0.9 L Baso % (Auto) 0.5 Neut # (Auto) 5500 Lymph # (Auto) 900 L [place] # (Auto) 600 Eos # (Auto) 100 Baso # (Auto) 0 Sodium 133 L Potassium 4.8 Chloride 100 Carbon Dioxide 20 L BUN 30 H Creatinine 1.38 H Estimated GFR 40 L BUN/Creatinine Ratio 21.7 Glucose 138 H Calcium 9.9 Total Bilirubin 1.7 H AST 26 ALT 18 Alkaline Phosphatase 85 Total Protein 7.0 Albumin 4.3 Globulin 2.7 Albumin/Globulin Ratio 1.6 Lipase 38 Assessment & Plan Assessment & Plan narrative: 1. Partial small bowel obstruction. 2. Constipation. 3. History of multiple abdominal surgeries. 4. Abdominal wall and lower extremity contusions. 5. Diabetes mellitus, type 2. 6. Hypertension. 7. Hyperlipidemia. 8. Tinea corporis. 9. Code status: Full code. Plan: -admit to observation -full liquid diet -fleets enema -stool softeners/senna -Tylenol as needed -nystatin powder -possible discharge home tomorrow Time-Based Coding :: [TOTAL MINUTES] spent with patient and on the chart (including review of chart, obtaining history, exam, reviewing outside data, placing orders, documenting exam and treatment plan, and counseling patient) on [DATE]. Quality MIPS - Admit I confirm the patient?s Advance Care Plan is present, Code status is documented, Surrogate decision maker is in patient?s record [If Yes, STOP here]: Yes MIPS - Meds 'Current medications' to include all prescriptions, [id number] products, herbals, cannabis/cannabidiol products, and vitamin/mineral/dietary (nutritional) supplements. I have utilized all available resources to obtain, update, or review the patient?s current medications. [If Yes, STOP here]: Yes PROFEE Charge Codes Initial inpatient/observation care: 85871
[2024-06-02] MEDS: DOCUSATE 100 MG CAPSULE PO (15:06)
[2024-06-02] MEDS: NYSTATIN POWDER 15GM 1 APPLIC TOP ×2 (15:12→21:00)
[2024-06-02] MEDS: FLEETS ENEMA 1 EACH PR (16:35)
--- NOTE | 2024-06-02 18:41 | PC.NURSE ---
Patient arrived to room 218 this afternoon. She is A&Ox4, VSS, on RA. She c/o feeling hot but states she's used to laying in bed without clothing. Noted many bruises on BLE's and forearms, red swollen area around umbilicus as well as severely red rash in groin region. She c/o nausea and constipation. She is given po zofran and x1 enema, with minimal effect. She voids in BSC and has a small BM x1 assist using FWW. Call light in reach, bed alarm on, (she declined SCD's), oriented to room and unit, and admission assessment completed. Continuous monitoring.
[2024-06-02] MEDS: ONDANSETRON 4 MG/2 ML INJ IV (20:13)
--- NOTE | 2024-06-03 | DI.RAD.S_ITS ---
PROCEDURE: XR GASTROGRAFIN CHALLENGE COMPARISON: None. INDICATIONS: sbo FINDINGS: Esophagogastric tube extends into the gastric body. Gastrografin oral contrast has transit largely from stomach into the small bowel and crosses the entirety of the small bowel and reaches the right lower quadrant. IMPRESSION: Small-bowel is not obstructed, shows normal caliber, and Gastrografin oral contrast has reached the right lower quadrant. Dictated by: Jaspreet Turner M.D. on 06/03/2024 at 21:30 Approved by: Jaspreet Turner M.D. on 06/03/2024 at 21:31
[2024-06-03 05:36] LABS: Add Manual Diff / Slide Review NO; Basophils Absolute Auto 0 /uL (0-100); Basophils Percent Auto 0.3 % (0-2); Eosinophils Absolute Auto 100 /uL (0-450); Eosinophils Percent Auto 1.2 % (2-4); Hematocrit 45.3 % (36-46); Hemoglobin 15.3 g/dL (12.0-16.0); Lymphocytes Absolute Auto 800 /uL (1100-4500); Lymphocytes Percent Auto 14.4 % (25-40); Mean Corpuscular HGB Conc 33.8 % (30-36); Mean Corpuscular Hemoglobin 30.8 PG (26-34); Mean Corpuscular Volume 91.4 fL (80-100); Monocytes Absolute Auto 700 /uL (0-900); Monocytes Percent Auto 12.3 % (3-14); Neutrophils Absolute Auto 3800 /uL (1500-7000); Neutrophils Percent Auto 71.8 % (50-75); Platelet Count 279 X10^3/uL (150-400); Red Blood Cell Count 4.96 X10^6/uL (4.0-5.2); Red Cell Distribution Width 14.9 % (11.6-14.8); White Blood Cell Count 5.3 X10^3/uL (4.5-11.0)
[2024-06-03 05:49] LABS: BUN Creatinine Ratio 31.9 (6-22); Blood Urea Nitrogen 45 mg/dL (7-17); Calcium 9.6 mg/dL (8.4-10.2); Carbon Dioxide 21 mmol/L (22-32); Chloride 100 mmol/L (98-107); Estimated Glomerular Filt Rate 39 mL/min (>60); Glucose 155 mg/dL (80-110); HEMOLYSIS < 15 (0-50); Potassium 4.7 mmol/L (3.4-5.1); Sodium 134 mmol/L (137-145)
[2024-06-03] MEDS: ONDANSETRON 4 MG/2 ML INJ IV ×2 (05:50→16:14)
--- NOTE | 2024-06-03 06:03 | PC.NURSE ---
Pt had one episode of brown emesis, 300ml. Dr Doss notified. Abiola administered
--- NOTE | 2024-06-03 07:42 | PM.PN.1 ---
Subjective Subjective Date Patient Seen: 06/03/24 Time Patient Seen: 07:40 Interval history: Summary: Patient is a 73-year-old female. Has had multiple abdominal surgeries to include a gastric stapling for weight loss. Approximately 8 days ago she sustained an injury when she was trying to lift a heavy coffee table up onto a couch. States she fell forward and hit her abdomen either on the coffee table or on the couch. She states that she feels like her abdomen is bruised. Has not had a bowel movement. Has also been coughing/vomiting up dark substance. No problems breathing. No problems urinating. The patient reports to this provider that her last formed bowel movement was over week ago. She has been using senna and stool softeners which have not seemed to help. She denies chest pain, shortness of breath, or bleeding symptoms. Interval history: The patient reports increased abdominal distension. She has had several episodes of emesis overnight. She describes diffuse abdominal discomfort. Exam Vital Signs (past 8 hours): Oxygen Delivery Method Room Air Oxygen Flow Rate 0 Narrative Exam Narrative: GENERAL: This is a well-nourished, well-developed patient, appears ill holding emesis bag. EYES: Pupils equal round and reactive. Extraocular motions intact. No scleral icterus. No injection or drainage. ENT: Mucous membranes pink and moist. NECK: Trachea midline. No JVD, bruits or lymphadenopathy. Supple, nontender, no meningeal signs. CARDIOVASCULAR: Regular rate and rhythm without murmurs, gallops, or rubs. RESPIRATORY: Clear to auscultation. GASTROINTESTINAL: Abdomen soft, mild diffuse tenderness, distended. 5 cm light yellow ecchymosis on right upper abdomen. EXTREMITIES: No clubbing, cyanosis, or edema. NEUROLOGIC: Alert, oriented, speech fluent, full upper and lower motor strength, no focal deficits evident. DERMATOLOGIC: Intertriginous erythematous rash on lower abdominal skin folds. Lower extremity scattered ecchymoses, including a large left lateral lr 15 cm plus ecchymosis, that the patient states she sustained in October. Objective Labs 06/03/24 04:55 06/03/24 04:55 Labs: Laboratory Results - last 24 hr 06/02/24 06/03/24 09:27 04:55 WBC 7.1 5.3 RBC 4.93 4.96 Hgb 15.4 15.3 Hct 45.5 45.3 MCV 92.3 91.4 MCH 31.2 30.8 MCHC 33.8 33.8 RDW 15.1 H 14.9 H Plt Count 278 279 Neut % (Auto) 76.8 H 71.8 Lymph % (Auto) 13.0 L 14.4 L [place] % (Auto) 8.8 12.3 Eos % (Auto) 0.9 L 1.2 L Baso % (Auto) 0.5 0.3 Neut # (Auto) 5500 3800 Lymph # (Auto) 900 L 800 L [place] # (Auto) 600 700 Eos # (Auto) 100 100 Baso # (Auto) 0 0 Sodium 133 L 134 L Potassium 4.8 4.7 Chloride 100 100 Carbon Dioxide 20 L 21 L BUN 30 H 45 H Creatinine 1.38 H 1.41 H Estimated GFR 40 L 39 L BUN/Creatinine Ratio 21.7 31.9 H Glucose 138 H 155 H Calcium 9.9 9.6 Total Bilirubin 1.7 H AST 26 ALT 18 Alkaline Phosphatase 85 Total Protein 7.0 Albumin 4.3 Globulin 2.7 Albumin/Globulin Ratio 1.6 Lipase 38 [facility] Medical History GERD (gastroesophageal reflux disease) Osteoarthritis Low back pain Right shoulder pain History of prosthetic unicompartmental arthroplasty of left knee Small bowel obstruction (~2009) HLD (hyperlipidemia) HTN (hypertension) Pneumonia (~1973) Abdominal hernia Surgical History Status post left 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 Partial small bowel obstruction. Clinically worse today. Insert NG tube, start IV fluids, obtain abdominal x-ray. 2. Constipation. 3. Acute kidney injury due to dehydration. Start IV fluids and monitor P 4. History of multiple abdominal surgeries. 5. Abdominal wall and lower extremity contusions. 6. Diabetes mellitus, type 2. 7. Hypertension. 8. Hyperlipidemia. 9. Tinea corporis. 10. Code status: Full code. Plan: -change to inpatient -NPO -IVF - -NGT -fleets enema -stool softeners/senna -Tylenol as needed -nystatin powder The patient will require at least 2 midnights of inpatient level care. Time-Based Coding :: [TOTAL MINUTES] spent with patient and on the chart (including review of chart, obtaining history, exam, reviewing outside data, placing orders, documenting exam and treatment plan, and counseling patient) on [DATE]. Quality VTE Deep Vein Thrombosis/Pulmonary Embolism Present on Admission: No IH PROFEE Charge codes Subsequent inpatient/observation care: [id number]
--- NOTE | 2024-06-03 07:43 | DI.RAD.S_ITS ---
PROCEDURE: XR KUB INDICATIONS: sbo and NG tube placement TECHNIQUE: One view of the abdomen acquired. COMPARISON: [facility], CT, CT ABDOMEN PELVIS W CON, 06/02/2024, 9:57. FINDINGS: Surgical changes and devices: Nasogastric tube is in place with distal tip and side port projecting below the level of the diaphragm and in the left upper quadrant. Positioning appears appropriate. Surgical clips in right upper quadrant compatible with prior cholecystectomy. Surgical clips in the pelvis likely from prior tubal ligation. Bowel: Persistent multiple scattered loops of prominent small bowel with differential air-fluid levels compatible with known history of small-bowel obstruction. Soft tissues: No suspicious abdominal calcifications. Visualized solid organ contours appear normal in size. Bones: No suspicious bony lesions. IMPRESSION: Nasogastric tube in place with appropriate positioning. Findings compatible with small-bowel obstruction redemonstrated. Dictated by: Abrahan Stroud M.D. on 06/03/2024 at 9:18 Approved by: Abrahan Stroud M.D. on 06/03/2024 at 9:20
[2024-06-03] MEDS: DEXTROSE 5%-0.9% NS 1,000 ML 125 ML IV ×2 (08:30→18:46)
--- NOTE | 2024-06-03 08:58 | CM.DANOTE ---
Addendum entered by MAXIME Roberto 06/03/24 09:39: ADD: Per patient, she has a referral in for a Neurologist from her PCP as she has a hx of a couple weeks of visual hallucinations where she saw things and people that weren't there but has since resolved and she denies any hallucinations or delusions. Pt concerned as both of her parents had dementia but pt currently not showing signs of memory issues or current visual disturbances. BF Original Note: Patient is a 73 yo female who was admitted on 06/02/24 for SBO/AMADEO. Pt has [facility] for insurance and her PCP is Haley Bills. EMR was reviewed. Per MD, pt with hx of gastric stapling and admitted after fall onto abdomen and partial SBO, AMADEO with dehydration and full liquids. Pt did not tolerate liquids and had increased distension and discomfort with emesis and NGT placed. Surgeon Consult ordered and pending. SW met bedside with pt and explained role and pt confirms that she lives in [place] and rents out two of her rooms and her two roommates mostly keep to themselves and pt has rented out her extra rooms for the past 20 years. Pt has local supportive brother in [place] and mostly has the support of local friends and neighbors. Pt states at baseline she is wibbly wobbly and not the steadiest at baseline but ambulates with cane independently. 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 Pt does not anticipate any needs at discharge and is hopeful to have NGT discontinued soon and have resolutions conservatively but going down for xray at this time to confirm progress. Pt states her local friend is on stand-by to transport her home when ready for discharge. Plan: SW to follow for Surgeon consult and progress with NGT towards determining if pt can be managed conservatively vs surgery and any further identified discharge planning needs towards plan of home with friend assist. MAXIME Roberto Discharge Planning/Care Management CM Discharge Assessment Start: 06/03/24 08:55 Freq: Status: Active Protocol: Document 06/03/24 08:55 BF (Rec: 06/03/24 08:58 BF [id number]) Discharge Planning Assessment Assigned Home Child Care Provider MAXIME Roper DPOA/Assigned Designee Name brother Sly Advance Directives? Yes: - polst Advance Directives on File No History Provided By Patient,Medical Record Has Patient been admitted in last 30 No days? Prior Living Arrangements House Household Members other Comment Rents out two of her rooms to roommates Type of transporation used prior to Drives own vehicle admit Independent with ADL's Yes Is patient alert and oriented? Yes Caregiver for Another No DME Already Rented / Owned Cane Barriers to Discharge No Comment Brother might be able to assist if needed. Also friends and neighbors to assist. Discharge Plan Home Transportation Arrangement States friend can assist when stable for d/c Additional Comment Pending progress with NGT and Surgeon Consult Whiteboard Updated in Patient Room with Yes name and ext. # of Home Child Care Provider Review Status In Process Please Provide Date Initial DC 06/03/24 Assessment Was Performed Next Review Type Continued Stay Review
[2024-06-03] MEDS: INSULIN LISPRO 100 UNIT/ML 3ML VIAL SUBCUT ×3 (09:16→16:50)
[2024-06-03] MEDS: NYSTATIN POWDER 15GM 1 APPLIC TOP (09:20)
--- NOTE | 2024-06-03 09:40 | P.CONS_ITS ---
History of Present Illness Consult details Date Patient Seen: 06/03/24 Time Patient Seen: 09:40 Chief complaint: fall 05/25, abdomen injury Reason for consult: SBO Requesting provider: Kirt Bradshaw Narrative: Has not felt well for 3 days, having nausea and emesis. mid abdominal pain. Recounts a fall where she hit her abdomen on the coffee table as an inciting event. Had at least 2 emesis last evening estimated by staff to be 400ml each, was taking sips of water. No BM, no report of gas. Never had SBO before is s/p gastric sleeve. Meds Home Medications and Allergies Home Medications Medication Instructions Recorded Confirmed Type cholecalciferol (vitamin D3) 125 10,000 unit PO DAILY ##0 07/08/10 06/02/24 History mcg (5,000 unit) tablet (Vitamin D3) losartan 25 mg tablet 50 mg PO BID ##0 04/27/11 06/02/24 History omega-3 360 mg-dha 144 mg-epa 216 2 cap PO BID ##0 04/27/11 06/02/24 History mg-fish oil 1,200 mg capsule,del rel (Fish Oil) omeprazole 20 mg capsule,delayed 20 mg PO DAILY ##0 04/27/11 06/02/24 History release atorvastatin 20 mg tablet 20 mg PO BEDTIME 09/28/19 06/02/24 History naproxen sodium 220 mg capsule 220 mg PO BID 09/28/19 06/02/24 History (Aleve) dulaglutide 1.5 mg/0.5 mL 1.5 mg SUBCUT QWEEK 06/09/22 06/02/24 History subcutaneous pen injector (Trulicity) metformin 500 mg tablet 500 mg PO DAILY 06/09/22 06/02/24 History sennosides 8.6 mg capsule (senna) 17.2 mg PO BID 06/09/22 06/02/24 History acetaminophen 1,000 mg PO PRN PRN Pain (Scale 06/17/22 06/02/24 History Score 4-6) docusate sodium 100 mg capsule 100 mg PO BID PRN constipation #60 06/18/22 06/02/24 Rx caps Allergies Allergy/AdvReac Type Severity Reaction Status Date / Time Sulfa (Sulfonamide Allergy Severe ITCHING Verified 06/17/22 06:42 Antibiotics) ascorbic acid Allergy Intermediate Rash Verified 06/17/22 06:42 citalopram [From Celexa] Allergy Pt does Verified 06/17/22 06:42 not remember reaction doxycycline Allergy Pt does Verified 06/17/22 06:42 not remember reaction escitalopram [From Lexapro] Allergy Pt does Verified 06/17/22 06:42 not remember reaction lisinopril Allergy Pt does Verified 06/17/22 06:42 not remember reaction meloxicam [From Mobic] Allergy Pt does Verified 06/17/22 06:42 not remember reaction metronidazole [From Flagyl] Allergy Pt does Verified 06/17/22 06:42 not remember reaction montelukast [From Singulair] Allergy Pt does Verified 06/17/22 06:42 not remember reaction piroxicam [From Feldene] Allergy Pt does Verified 06/17/22 06:42 not remember reaction sulfamethoxazole Allergy Pt does Verified 06/17/22 06:42 [From Septra] not remember reaction sulfur dioxide Allergy Pt does Verified 06/17/22 06:42 not remember reaction trimethoprim [From Septra] Allergy Pt does Verified 06/17/22 06:42 not remember reaction Influenza Virus Vaccines AdvReac Severe Hives Verified 06/17/22 06:42 oxycodone [From Percocet] AdvReac Severe Hallucinati Verified 06/17/22 06:42 ng propoxyphene AdvReac Severe Hallucinati Verified 06/17/22 06:42 [From Darvocet-N] ng codeine AdvReac Pt unsure, Verified 06/17/22 06:42 thinks possibly nausea Review of Systems Review of Systems ROS: Yes All systems reviewed with the patient and are negative except as otherwise documented Exam Vital Signs (past 8 hours): Oxygen Delivery Method Room Air Oxygen Flow Rate 0 Const General: cooperative and ill appearing Nutritional Appearance: obese Orientation: alert, awake and oriented x3 HENMT Head: normocephalic and atraumatic Ears: hearing grossly normal bilaterally Nose: foreign body in naris (NGT: KUB shows still air fluid levels in small bowel ) Eyes General: appearance normal, both eyes and all related structures Sclera: sclerae normal Neck Neck: trachea midline Chest Chest: normal inspection of the chest Resp Effort & Inspection: normal respiratory effort and able to speak in complete sentences Cardio Rate: regular rate Rhythm: regular rhythm GI Inspection: distended and no visible herniation Palpation: soft and No hernia Skin General: turgor normal and atrophy Neuro General: patient alert, patient awake and patient oriented x3 Cognition: normal cognition Extrem General: No clubbing and No cyanosis Psych Appearance: grossly normal Mental Status: mental status grossly normal Affect: normal affect Judgment: judgment good Objective Labs 06/03/24 04:55 06/03/24 04:55 Labs: Laboratory Results - last 24 hr 06/02/24 06/03/24 09:27 04:55 WBC 5.3 RBC 4.96 Hgb 15.3 Hct 45.3 MCV 91.4 MCH 30.8 MCHC 33.8 RDW 14.9 H Plt Count 279 Neut % (Auto) 71.8 Lymph % (Auto) 14.4 L [place] % (Auto) 12.3 Eos % (Auto) 1.2 L Baso % (Auto) 0.3 Neut # (Auto) 3800 Lymph # (Auto) 800 L [place] # (Auto) 700 Eos # (Auto) 100 Baso # (Auto) 0 Sodium 133 L 134 L Potassium 4.8 4.7 Chloride 100 100 Carbon Dioxide 20 L 21 L BUN 30 H 45 H Creatinine 1.38 H 1.41 H Estimated GFR 40 L 39 L BUN/Creatinine Ratio 21.7 31.9 H Glucose 138 H 155 H Calcium 9.9 9.6 Total Bilirubin 1.7 H AST 26 ALT 18 Alkaline Phosphatase 85 Total Protein 7.0 Albumin 4.3 Globulin 2.7 Albumin/Globulin Ratio 1.6 Lipase 38 PFSH Medical History GERD (gastroesophageal reflux disease) Osteoarthritis Low back pain Right shoulder pain History of prosthetic unicompartmental arthroplasty of left knee Small bowel obstruction (~2009) HLD (hyperlipidemia) HTN (hypertension) Pneumonia (~1973) Abdominal hernia Surgical History Status post left 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 H/O gastric sleeve and repair of ventral hernia. Plan: Not sure how effective the NGT is for negating symptoms due to her sleeve anatomy, but it is also interesting she can have 400ml emesis. Continue NGT for now and bowel rest. Gastrografin challenge today. Time-Based Coding :: 30 minutes spent with patient and on the chart (including review of chart, obtaining history, exam, reviewing outside data, placing orders, documenting exam and treatment plan, and counseling patient) on 06/03/24.
[2024-06-03 10:00] VITALS: BP 99/68; PULSE 52; RESP 12; TEMP 35.7; O2SAT 100
[2024-06-03 12:00] VITALS: BP 108/58; PULSE 112; RESP 24; TEMP 35.8; O2SAT 94
[2024-06-03 16:00] VITALS: BP 104/63; PULSE 108; RESP 18; TEMP 35.9; O2SAT 96
[2024-06-03] MEDS: SODIUM CHLORIDE 0.9% 500 ML 1000 ML IV (16:05)
[2024-06-03] MEDS: HYDROMORPHONE 0.5 MG INJ IV (16:13)
[2024-06-03] MEDS: NYSTATIN SUSP 500,000 UNIT/5 ML UDC 500000 UNIT PO (16:13)
[2024-06-03 19:40] VITALS: BP 107/52; PULSE 92; RESP 17; TEMP 35.9; O2SAT 94
--- NOTE | 2024-06-03 22:54 | PC.NURSE ---
Addendum entered by Selina Rodriguez R.N. 06/03/24 23:52: Gastrogaffin xray results showed no SBO (paper copy in pt folder). Per , okay to leave NG tube out for now. Pt sleeping. Care continues. Original Note: NOC: Pt accidentally removed NG tube at 2145. Awaiting gastrograffin x-ray results before calling .
[2024-06-04] MEDS: SODIUM CHLORIDE 0.9% FLUSH 10 ML IV ×3 (03:30→20:11)
[2024-06-04] MEDS: DEXTROSE 5%-0.9% NS 1,000 ML 125 ML IV (03:30)
[2024-06-04 04:56] VITALS: BP 116/67; PULSE 95; RESP 14; TEMP 35.8; O2SAT 98
[2024-06-04 05:17] LABS: Add Manual Diff / Slide Review NO; Basophils Absolute Auto 0 /uL (0-100); Basophils Percent Auto 0.2 % (0-2); Eosinophils Absolute Auto 100 /uL (0-450); Eosinophils Percent Auto 1.9 % (2-4); Hemoglobin 15.2 g/dL (12.0-16.0); Lymphocytes Absolute Auto 600 /uL (1100-4500); Lymphocytes Percent Auto 12.8 % (25-40); Mean Corpuscular HGB Conc 33.8 % (30-36); Mean Corpuscular Hemoglobin 31.2 PG (26-34); Mean Corpuscular Volume 92.3 fL (80-100); Monocytes Absolute Auto 700 /uL (0-900); Neutrophils Absolute Auto 3500 /uL (1500-7000); Neutrophils Percent Auto 70.1 % (50-75); Platelet Count 274 X10^3/uL (150-400); Red Blood Cell Count 4.87 X10^6/uL (4.0-5.2); Red Cell Distribution Width 15.2 % (11.6-14.8)
[2024-06-04 05:29] LABS: BUN Creatinine Ratio 35.4 (6-22); Blood Urea Nitrogen 58 mg/dL (7-17); Calcium 8.9 mg/dL (8.4-10.2); Carbon Dioxide 25 mmol/L (22-32); Chloride 106 mmol/L (98-107); Estimated Glomerular Filt Rate 33 mL/min (>60); Glucose 160 mg/dL (80-110); HEMOLYSIS 16 (0-50); Potassium 4.2 mmol/L (3.4-5.1); Sodium 143 mmol/L (137-145)
[2024-06-04 08:00] VITALS: BP 103/65; PULSE 98; RESP 16; TEMP 35.9; O2SAT 98
[2024-06-04] MEDS: TAMSULOSIN 0.4 MG CAPSULE PO (09:35)
[2024-06-04] MEDS: ACETAMINOPHEN 325 MG TABLET 650 MG PO (09:36)
[2024-06-04] MEDS: CHOLECALCIFEROL (VITAMIN D3) 5,000 UNIT TABLET 10000 UNIT PO (09:36)
[2024-06-04] MEDS: LOSARTAN 25 MG TABLET 50 MG PO ×2 (09:36→20:10)
[2024-06-04] MEDS: METFORMIN HCL 500 MG TABLET PO (09:36)
[2024-06-04] MEDS: LORATADINE 10 MG TABLET PO (09:36)
[2024-06-04] MEDS: FISH OIL 1,000 MG CAPSULE 2000 MG PO (09:36)
[2024-06-04] MEDS: NYSTATIN POWDER 15GM 1 APPLIC TOP ×2 (09:37→20:13)
[2024-06-04] MEDS: NYSTATIN SUSP 500,000 UNIT/5 ML UDC 500000 UNIT PO ×2 (09:37→20:10)
--- NOTE | 2024-06-04 10:35 | P.PN_ITS ---
Subjective Subjective Date Patient Seen: 06/04/24 Time Patient Seen: 07:25 Interval history: Summary: Patient is a 73-year-old female. Has had multiple abdominal surgeries to include a gastric stapling for weight loss. Approximately 8 days ago she sustained an injury when she was trying to lift a heavy coffee table up onto a couch. States she fell forward and hit her abdomen either on the coffee table or on the couch. She states that she feels like her abdomen is bruised. Has not had a bowel movement. Has also been coughing/vomiting up dark substance. No problems breathing. No problems urinating. The patient reports to this provider that her last formed bowel movement was over week ago. She has been using senna and stool softeners which have not seemed to help. She denies chest pain, shortness of breath, or bleeding symptoms. Interval history: The patient had an unremarkable Gastrografin study yesterday with passage of contrast to the right lower quadrant. She has not passed flatus but reports having liquid bowel movements this morning. No nausea or emesis. She would like to advance her diet. Exam Vital Signs (past 8 hours): - 06/04/24 04:56 Temperature 96.4 F L Pulse Rate 95 H Respiratory Rate 14 Blood Pressure 116/67 Pulse Oximetry 98 Oxygen Delivery Method Room Air Oxygen Flow Rate 0 Narrative Exam Narrative: GENERAL: This is a well-nourished, well-developed patient, appears ill holding emesis bag. EYES: Pupils equal round and reactive. Extraocular motions intact. No scleral icterus. No injection or drainage. ENT: Mucous membranes pink and moist. Thrush noted NECK: Trachea midline. No JVD, bruits or lymphadenopathy. Supple, nontender, no meningeal signs. CARDIOVASCULAR: Regular rate and rhythm without murmurs, gallops, or rubs. RESPIRATORY: Clear to auscultation. GASTROINTESTINAL: Abdomen soft, nontender, nondistended. EXTREMITIES: No clubbing, cyanosis, or edema. NEUROLOGIC: Alert, oriented, speech fluent, full upper and lower motor strength, no focal deficits evident. DERMATOLOGIC: Intertriginous erythematous rash on lower abdominal skin folds. Lower extremity scattered ecchymoses, including a large left lateral lr 15 cm plus ecchymosis, that the patient states she sustained in October. Objective Labs 06/04/24 05:09 06/04/24 05:09 Labs: Laboratory Results - last 24 hr 06/04/24 05:09 WBC 5.0 RBC 4.87 Hgb 15.2 Hct 45.0 MCV 92.3 MCH 31.2 MCHC 33.8 RDW 15.2 H Plt Count 274 Neut % (Auto) 70.1 Lymph % (Auto) 12.8 L [place] % (Auto) 15.0 H Eos % (Auto) 1.9 L Baso % (Auto) 0.2 Neut # (Auto) 3500 Lymph # (Auto) 600 L [place] # (Auto) 700 Eos # (Auto) 100 Baso # (Auto) 0 Sodium 143 Potassium 4.2 Chloride 106 Carbon Dioxide 25 BUN 58 H Creatinine 1.64 H Estimated GFR 33 L BUN/Creatinine Ratio 35.4 H Glucose 160 H Calcium 8.9 PFSH Medical History GERD (gastroesophageal reflux disease) Osteoarthritis Low back pain Right shoulder pain History of prosthetic unicompartmental arthroplasty of left knee Small bowel obstruction (~2009) HLD (hyperlipidemia) HTN (hypertension) Pneumonia (~1973) Abdominal hernia Surgical History Status post left 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 Partial small bowel obstruction. Clinically improved today. Advance to clear liquid diet. 2. Constipation. 3. Acute kidney injury due to dehydration. Start IV fluids and monitor P 4. History of multiple abdominal surgeries. 5. Abdominal wall and lower extremity contusions. 6. Diabetes mellitus, type 2. 7. Hypertension. 8. Hyperlipidemia. 9. Tinea corporis. 10. Code status: Full code. Plan: -advance to clear liquid diet -stop IV fluids -monitor clinically -Tylenol as needed -nystatin powder and swish The patient will require at least 2 midnights of inpatient level care. Time-Based Coding :: [TOTAL MINUTES] spent with patient and on the chart (including review of chart, obtaining history, exam, reviewing outside data, placing orders, documenting exam and treatment plan, and counseling patient) on [DATE]. Quality VTE Deep Vein Thrombosis/Pulmonary Embolism Present on Admission: No IH PROFEE Charge codes Subsequent inpatient/observation care: [id number]
[2024-06-04] MEDS: INSULIN LISPRO 100 UNIT/ML 3ML VIAL SUBCUT (11:37)
--- NOTE | 2024-06-04 11:37 | CM.DPC ---
DCP Cont. Reviewed EMR and team rounds for status updates. Per Dr. Frost, pt will need 1-2 more days before she is medically stable for home d/c. Monitoring for home d/c needs.
--- NOTE | 2024-06-04 11:59 | PM.PN.1 ---
Subjective Subjective Date Patient Seen: 06/04/24 Time Patient Seen: 11:59 Interval history: NGT out and on clear liquids. Feels much better. Exam Vital Signs (past 8 hours): - 06/04/24 04:56 06/04/24 08:00 Temperature 96.4 F L 96.6 F L Pulse Rate 95 H 98 H Respiratory Rate 14 16 Blood Pressure 116/67 103/65 Pulse Oximetry 98 98 Oxygen Flow Rate 0 Oxygen Delivery Method Room Air Oxygen Flow Rate 0 Narrative Exam Narrative: gastrografin challenge shows SBO resolved. Objective Labs 06/04/24 05:09 06/04/24 05:09 Labs: Laboratory Results - last 24 hr 06/04/24 05:09 WBC 5.0 RBC 4.87 Hgb 15.2 Hct 45.0 MCV 92.3 MCH 31.2 MCHC 33.8 RDW 15.2 H Plt Count 274 Neut % (Auto) 70.1 Lymph % (Auto) 12.8 L [place] % (Auto) 15.0 H Eos % (Auto) 1.9 L Baso % (Auto) 0.2 Neut # (Auto) 3500 Lymph # (Auto) 600 L [place] # (Auto) 700 Eos # (Auto) 100 Baso # (Auto) 0 Sodium 143 Potassium 4.2 Chloride 106 Carbon Dioxide 25 BUN 58 H Creatinine 1.64 H Estimated GFR 33 L BUN/Creatinine Ratio 35.4 H Glucose 160 H Calcium 8.9 PFSH Medical History GERD (gastroesophageal reflux disease) Osteoarthritis Low back pain Right shoulder pain History of prosthetic unicompartmental arthroplasty of left knee Small bowel obstruction (~2009) HLD (hyperlipidemia) HTN (hypertension) Pneumonia (~1973) Abdominal hernia Surgical History Status post left 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 Time-Based Coding :: [TOTAL MINUTES] spent with patient and on the chart (including review of chart, obtaining history, exam, reviewing outside data, placing orders, documenting exam and treatment plan, and counseling patient) on [DATE]. Quality VTE Deep Vein Thrombosis/Pulmonary Embolism Present on Admission: No
[2024-06-04 12:00] VITALS: BP 125/61; PULSE 103; RESP 12; TEMP 36.1; O2SAT 97
[2024-06-04] MEDS: FISH OIL 1,000 MG CAPSULE 1000 MG PO (13:08)
[2024-06-04 16:00] VITALS: BP 101/51; PULSE 93; RESP 12; TEMP 36.1; O2SAT 98
[2024-06-04 20:00] VITALS: BP 103/50; PULSE 101; RESP 17; TEMP 35.9; O2SAT 99
[2024-06-04] MEDS: ATORVASTATIN 20 MG TABLET PO (20:10)
[2024-06-04] MEDS: CALCIUM CARBONATE 500 MG TAB PO (20:10)
[2024-06-05] VITALS (7 sets, daily range): BP systolic 95–131; BP diastolic 49–71; PULSE 72–102; RESP 16–20; TEMP 35.6–36.3; O2SAT 97–98
[2024-06-05 04:53] LABS: Alanine Aminotransferase 17 IU/L (<35); Albumin 3.2 g/dL (3.5-5.0); Albumin Globulin Ratio 1.3 (1.0-2.8); Alkaline Phosphatase 71 U/L (38-126); Aspartate Aminotransferase 19 IU/L (14-36); Bilirubin Total 0.5 mg/dL (0.2-1.3); Blood Urea Nitrogen 49 mg/dL (7-17); Calcium 8.7 mg/dL (8.4-10.2); Carbon Dioxide 23 mmol/L (22-32); Chloride 109 mmol/L (98-107); Estimated Glomerular Filt Rate > 60 mL/min (>60); Globulin 2.5 g/dL (1.7-4.1); Glucose 118 mg/dL (80-110); HEMOLYSIS < 15 (0-50); Potassium 3.9 mmol/L (3.4-5.1); Sodium 137 mmol/L (137-145); Total Protein 5.7 g/dL (6.3-8.2)
[2024-06-05] MEDS: PANTOPRAZOLE DR 20 MG TABLET PO (06:52)
[2024-06-05] MEDS: NYSTATIN SUSP 500,000 UNIT/5 ML UDC 500000 UNIT PO ×2 (10:19→21:01)
[2024-06-05] MEDS: LORATADINE 10 MG TABLET PO (10:21)
[2024-06-05] MEDS: CHOLECALCIFEROL (VITAMIN D3) 5,000 UNIT TABLET 10000 UNIT PO (10:21)
[2024-06-05] MEDS: TAMSULOSIN 0.4 MG CAPSULE PO (10:21)
[2024-06-05] MEDS: DOCUSATE 100 MG CAPSULE PO (10:21)
[2024-06-05] MEDS: FISH OIL 1,000 MG CAPSULE 2000 MG PO (10:22)
[2024-06-05] MEDS: SENNOSIDES 8.6 MG TABLET 17.2 MG PO (10:22)
[2024-06-05] MEDS: METFORMIN HCL 500 MG TABLET PO (10:22)
[2024-06-05] MEDS: LOSARTAN 25 MG TABLET 50 MG PO (10:22)
[2024-06-05] MEDS: ACETAMINOPHEN 325 MG TABLET 650 MG PO ×2 (10:22→22:38)
[2024-06-05] MEDS: SODIUM CHLORIDE 0.9% FLUSH 10 ML IV ×2 (10:23→21:02)
[2024-06-05] MEDS: NYSTATIN POWDER 15GM 1 APPLIC TOP ×2 (10:23→21:01)
[2024-06-05] MEDS: INSULIN LISPRO 100 UNIT/ML 3ML VIAL SUBCUT ×2 (12:22→17:07)
[2024-06-05] MEDS: FISH OIL 1,000 MG CAPSULE 1000 MG PO (12:24)
--- NOTE | 2024-06-05 15:09 | PT.IIE ---
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) Hx of appendectomy Hx of cholecystectomy (~1977) Hx of colectomy (~2003) Hx of tonsillectomy Hx of varicose vein stripping Status post left unicompartmental knee replacement Medical History (Last Reviewed 06/03/24 @ 09:43 by Norma Waldrop MD) Abdominal hernia GERD (gastroesophageal reflux disease) History of prosthetic unicompartmental arthroplasty of left knee HLD (hyperlipidemia) HTN (hypertension) Low back pain Osteoarthritis Pneumonia (~1973) Right shoulder pain Small bowel obstruction (~2009) Physical Therapy Inpatient Evaluation/Re-Eval M1 PT/OT-IP Prior Functional Status Start: 06/05/24 10:28 Freq: NEEDED Status: Active Protocol: Document 06/05/24 14:31 MB (Rec: 06/05/24 15:09 MB [id number]) Medical Review Prior Functional Status Medical History Reviewed Yes Diet/Fluid Consistency Regular Communication WNLs Mobility and Gait Mod I with 4WRW, one recent fall when moving coffee table over sofa Activities of Daily Living and IADL's Mod I Social History Household Members other Living Arrangements House Number of Floors (Floors) One Floor Number of Stairs To Enter/Railing? 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 M2 PT-IP Current Condition Start: 06/05/24 10:28 Freq: NEEDED Status: Active Protocol: Document 06/05/24 14:31 MB (Rec: 06/05/24 15:09 MB [id number]) Physical Therapy Current Condition Current Condition Evaluation Date 06/05/24 Treatment Diagnosis Fall and abdominal pain and issues M3 PT-IP Subjective Start: 06/05/24 10:28 Freq: NEEDED Status: Active Protocol: Document 06/05/24 14:31 MB (Rec: 06/05/24 15:09 MB [id number]) Subjective Physical Therapy Visit Type Type Initial Evaluation Visit Start Time 14:31 Visit Stop Time 14:50 Number of SITE SAFETY MANAGER Visits 0 Physical Therapy Visit Comments Patient Comments Pt states she has been lazy and sleeping a lot. She states that she has been worried about being incontinent when up and so she has stayed in bed and not walked with nsg. Therapy Pain Assessment Pain When Pain Assessed At Rest Pain Present Pain Present Denied Pain M4 PT-IP Mobility and Gait Start: 06/05/24 10:28 Freq: NEEDED Status: Active Protocol: Document 06/05/24 14:31 MB (Rec: 06/05/24 15:09 MB [id number]) PT-Bed Mobility Assessment Rolling Type of Rolling Roll to Left Level of Assist Standby Assistance Supine to Sit Supine to Sit Standby Assistance,1 Person Assistance,Head of Bed Elevated,Bedrails Sit to Supine Sit to Supine Standby Assistance,1 Person Assistance,Head of Bed Elevated,Bedrails Scooting Scooting to Edge of Bed Standby Assistance Scooting Up and Down in Bed Standby Assistance PT-Transfer Assessment Sit to and From Stand Sit to and from Stand Contact Guard Assistance,1 Person Assistance,Use of Upper Extremities Equipment Transfer Assistive Device Gait Belt,Front Wheeled Walker Orthotic/Prosthetic Devices or Brace: No Transfers Transfer Destination Bed Transfer Technique Ambulation Transfer Ability Level of Assist Contact Guard Assistance,1 Person Assistance,Use of Upper Extremities Comments Mobility Comments PT encourages pt to try log rolling to the left to get OOB to protect her stomach but pt does not follow this cue and tends to sit straight up and move to the left Gait Assessment Gait Gait Assistance Required: Contact Guard Assist Distance (Feet) 60 Able to Maintain Weight Bearing Status Yes During Gait Assistive Devices Assistive Device Gait Belt,Front Wheeled Walker Orthotic/Prosthetic Devices or Brace: No Gait Deviations General Gait Pattern Decreased Stride Length, Decreased Feet Clearance, Flexed Trunk,Step-to Gait,Wide Based Gait Factors Limiting Gait Function Factors Limiting Gait Function Decreased Strength, Incoordination,Limited Range of Motion,Poor Balance,Poor Safety Awareness Comments Gait Comments Functionally, pt has weakness in LLE with gait and steps are shorter and she has some decreased WB and steadiness through the left leg with gait . She states she tries not to use the walker at home and given gait impairment, PT encourages to indeed con't using the 4WRW at home PT-Balance Assessment Sitting Balance and Reactions Static Sitting Balance Ability Good Dynamic Sitting Balance Ability Good Standing Balance and Reactions Static Standing Balance Ability Fair Dynamic Standing Balance Ability Fair Device Used RW M5 PT-IP Objective Assessments Start: 06/05/24 10:28 Freq: NEEDED Status: Active Protocol: Document 06/05/24 14:31 MB (Rec: 06/05/24 15:09 [id number]) Orientation Orientation/Cognition Level of Alertness Alert Orientation Name,Age,Birthday,Month,Date, Year,Day of Week,Place, Situation Language Function Ability No Deficits Noted Safety Awareness Decreased Safety Awareness Memory Description No Deficits Noted Gross Range of Motion Upper Extremity ROM Assessment Within Functional Limits Lower Extremity ROM Assessment Within Functional Limits Impairments Functional weakness in LLE with gait Strength Upper Extremity Strength Assessment Within Functional Limits Lower Extremity Strength Assessment Left Impaired Comments Strength Comments LLE is functionally weak with gait today Sensation Assessment Sensation Gross Sensation WNL Muscle Tone Muscle Tone WNL Yes M6 PT-IP Treatment Start: 06/05/24 10:28 Freq: NEEDED Status: Active Protocol: Document 06/05/24 14:31 MB (Rec: 06/05/24 15:09 [id number]) Physical Therapy Treatment Education Education Provided Safety Other Treatments Other Treatment Performed Pt dons socks with increased time sitting EOB M7 PT-IP Assessment and Plan Start: 06/05/24 10:28 Freq: NEEDED Status: Active Protocol: Document 06/05/24 14:31 MB (Rec: 06/05/24 15:09 [id number]) PT Summary Assessment and Plan Potential Rehabilitation Potential Good Status of Condition at Evaluation Evolving Summary Impairments Pain,ROM,Strength,Balance, Coordination,Bed Mobility, Transfers,Gait,Activity Tolerance Progress Towards Goals Progressing Toward Goals Assessment Summary Pt is a 73 y/o female presenting with SBA to CGA for mobility today. She does not follow cues for log rolling to protect abdomen after injury. She has functional LLE weakness and imbalance with gait with RW. Try rollator next treatment as pt has one at home. Recommend up with nsg and OOB to chair with nsg for all meals. Goals Bed Mobility Goal Independent Transfer Goal Independent,Four Wheeled Walker Gait Goal Independent,Four Wheel Walker Gait Distance 100 Days to Meet Goals 3 Frequency of Treatment Frequency Of Treatment Once a Day Treatment Plan Physical Therapy Treatment Plan Bed Mobility Training,Transfer Training,Gait Training, Therapeutic Exercise,Balance Retraining,Discharge Planning, Hot or Cold Pack,Neuromuscular Re-ed,Coordination Retraining ,Manual Therapy Precautions Other Precautions Fall risk, try to encourage log rolling to help abdominal pain Weight Bearing Status Weight Bearing Status Weight Bear as Tolerated Recommendations To Nursing Amount of Assist Needed 1 Person Assist Discharge Recommendations PT Discharge Recommendations Home with Assistance Transportation Needs at Discharge Private Vehicle
--- NOTE | 2024-06-05 15:13 | DIET.CONS ---
Dietary Consultation Note Admission Date: 06/02/2024 11:24 Assessment: 73 y F admitted for SBO/AMADEO. Nutrition screened as per unit host pt seeking resources for nutrition related diabetic education. Met w/ pt at bedside. Reports wanting outpatient referral and information on community nutrition educ classes. Provided information. Pt reports previous gastric bypass ~ Diet recall: eggs and cheese out to eat - fast food or snacks at home out to eat Difficulty cooking for self. Sometimes skips lunch or dinner. Ht: 162.56 cm Wt: 96.5 kg BMI: 36.3 Last BM: 06/05/24 (06/05/24 00:00) MNA: 14 Naveed Score: 20 Diet: 06/05/24 Lunch Carbohydrate Consistent Diet Diet Modifications: Carbohydrate level: Large (4 CHO) Reflex DM orders: No Food Texture: Level 7 - Regular Liquid Consistency: Level 0 - Thin Nutrition Percent Meal Consumed 75% 06/04/24 18:39 Percent Meal Consumed 100% 06/04/24 15:15 Labs: RBC 4.87 X10^6/uL (4.0-5.2) 06/04/24 05:09 Hgb 15.2 g/dL (12.0-16.0) 06/04/24 05:09 Hct 45.0 % (36-46) 06/04/24 05:09 Creatinine 0.86 mg/dL (0.52-1.04) 06/05/24 04:32 Nutrition Diagnosis: Nutrition related knowledge deficit r/t limited previous nutrition educ aeb assessment Interventions: 1. Provided resources, encouraged visit outpatient/classes 2. Overview of plate method and carb portioning Monitoring/Evaluations: f/u prn Electronically Signed by: Rayne Mathias 06/05/24 15:13 Clinical Dietitian [address] [id number]
--- NOTE | 2024-06-05 15:34 | PC.NURSE ---
Patient is tolerating an ada diet well, she has been up to the bathroom and is resting now.
--- NOTE | 2024-06-05 15:36 | P.PN_ITS ---
Subjective Subjective Interval history: reports mild improvement. Will advance to regular diet today. She also reports weakness so will further assess with PT as she has been in bed for approx. 1 week. Exam Vital Signs (past 8 hours): - 06/05/24 08:00 06/05/24 12:00 Temperature 96.8 F L 96.9 F L Pulse Rate 92 H 85 Respiratory Rate 17 18 Blood Pressure 113/62 95/49 L Pulse Oximetry 97 98 Oxygen Flow Rate 0 0 Oxygen Delivery Method Room Air Oxygen Flow Rate 0 Narrative Exam Narrative: GENERAL: This is a well-nourished, well-developed patient, no acute distress. EYES: Pupils equal round and reactive. Extraocular motions intact. No scleral icterus. No injection or drainage. ENT: Mucous membranes pink and moist. NECK: Trachea midline. No JVD, bruits or lymphadenopathy. Supple, nontender, no meningeal signs. CARDIOVASCULAR: Regular rate and rhythm without murmurs, gallops, or rubs. RESPIRATORY: Clear to auscultation. GASTROINTESTINAL: Abdomen soft, nontender, nondistended. EXTREMITIES: No clubbing, cyanosis, or edema. NEUROLOGIC: Alert, oriented, speech fluent, full upper and lower motor strength, no focal deficits evident. DERMATOLOGIC: Intertriginous erythematous rash on lower abdominal skin folds. Lower extremity scattered ecchymoses, including a large left lateral lr 15 cm plus ecchymosis, that the patient states she sustained in October. Objective Labs 06/04/24 05:09 06/05/24 04:32 Labs: Laboratory Results - last 24 hr 06/05/24 04:32 Sodium 137 Potassium 3.9 Chloride 109 H Carbon Dioxide 23 BUN 49 H Creatinine 0.86 Estimated GFR > 60 BUN/Creatinine Ratio 57.0 H Glucose 118 H Calcium 8.7 Total Bilirubin 0.5 AST 19 ALT 17 Alkaline Phosphatase 71 Total Protein 5.7 L Albumin 3.2 L Globulin 2.5 Albumin/Globulin Ratio 1.3 [facility] Medical History GERD (gastroesophageal reflux disease) Osteoarthritis Low back pain Right shoulder pain History of prosthetic unicompartmental arthroplasty of left knee Small bowel obstruction (~2009) HLD (hyperlipidemia) HTN (hypertension) Pneumonia (~1973) Abdominal hernia Surgical History Status post left 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 Partial small bowel obstruction. Clinically improved today. Advance to clear liquid diet. 2. Constipation. 3. Acute kidney injury due to dehydration. Start IV fluids and monitor P 4. History of multiple abdominal surgeries. 5. Abdominal wall and lower extremity contusions. 6. Diabetes mellitus, type 2. 7. Hypertension. 8. Hyperlipidemia. 9. Tinea corporis. 10. Code status: Full code. Plan: -advance to regular diet -stopped IV fluids -monitor clinically -Tylenol as needed -nystatin powder and swish - PT eval ordered. Discharge home likely tomorrow assuming doing well with PT and tolerating a regular diet. Time-Based Coding :: [TOTAL MINUTES] spent with patient and on the chart (including review of chart, obtaining history, exam, reviewing outside data, placing orders, documenting exam and treatment plan, and counseling patient) on [DATE]. Quality VTE Deep Vein Thrombosis/Pulmonary Embolism Present on Admission: No
--- NOTE | 2024-06-05 16:36 | CM.DPC ---
DCP COnt: Per Surgeon and MD, pt able to tolerate liquids and NGT discontinued and seems to be tolerating advancing diet. Per PT, pt participated and recommending home with assist. Plan: SW to follow for plan of discharge home likely tomorrow via friend POV if medically stable. MAXIME Roberto
[2024-06-05] MEDS: ATORVASTATIN 20 MG TABLET PO (21:02)
[2024-06-05] MEDS: hydrOXYzine HCL 25 MG TABLET PO (22:38)
[2024-06-06] VITALS: BP 99/44; RESP 18; TEMP 36.6; O2SAT 95
[2024-06-06 04:00] VITALS: BP 115/53; PULSE 91; RESP 20; TEMP 36.1; O2SAT 94
[2024-06-06 05:07] LABS: Add Manual Diff / Slide Review NO; Basophils Absolute Auto 0 /uL (0-100); Basophils Percent Auto 0.7 % (0-2); Eosinophils Absolute Auto 100 /uL (0-450); Eosinophils Percent Auto 1.9 % (2-4); Hematocrit 36.1 % (36-46); Hemoglobin 12.2 g/dL (12.0-16.0); Lymphocytes Absolute Auto 1000 /uL (1100-4500); Lymphocytes Percent Auto 24.5 % (25-40); Mean Corpuscular Hemoglobin 31.1 PG (26-34); Mean Corpuscular Volume 91.5 fL (80-100); Monocytes Absolute Auto 400 /uL (0-900); Monocytes Percent Auto 10.3 % (3-14); Neutrophils Absolute Auto 2500 /uL (1500-7000); Neutrophils Percent Auto 62.6 % (50-75); Platelet Count 227 X10^3/uL (150-400); Red Blood Cell Count 3.94 X10^6/uL (4.0-5.2); Red Cell Distribution Width 14.9 % (11.6-14.8)
[2024-06-06 05:20] LABS: BUN Creatinine Ratio 49.4 (6-22); Blood Urea Nitrogen 38 mg/dL (7-17); Calcium 9.4 mg/dL (8.4-10.2); Carbon Dioxide 21 mmol/L (22-32); Chloride 109 mmol/L (98-107); Estimated Glomerular Filt Rate > 60 mL/min (>60); Glucose 133 mg/dL (80-110); HEMOLYSIS < 15 (0-50); Potassium 3.8 mmol/L (3.4-5.1); Sodium 136 mmol/L (137-145)
[2024-06-06] MEDS: PANTOPRAZOLE DR 20 MG TABLET PO (06:05)
[2024-06-06 08:00] VITALS: BP 123/66; PULSE 91; RESP 16; TEMP 36.2; O2SAT 99
[2024-06-06] MEDS: NYSTATIN SUSP 500,000 UNIT/5 ML UDC 500000 UNIT PO (10:03)
[2024-06-06] MEDS: FISH OIL 1,000 MG CAPSULE 2000 MG PO (10:03)
[2024-06-06] MEDS: DOCUSATE 100 MG CAPSULE PO (10:03)
[2024-06-06 10:04] VITALS: BP 123/66
[2024-06-06] MEDS: CHOLECALCIFEROL (VITAMIN D3) 5,000 UNIT TABLET 10000 UNIT PO (10:04)
[2024-06-06] MEDS: METFORMIN HCL 500 MG TABLET PO (10:04)
[2024-06-06] MEDS: SENNOSIDES 8.6 MG TABLET 17.2 MG PO (10:04)
[2024-06-06] MEDS: LOSARTAN 25 MG TABLET 50 MG PO (10:04)
[2024-06-06] MEDS: TAMSULOSIN 0.4 MG CAPSULE PO (10:04)
[2024-06-06] MEDS: NYSTATIN POWDER 15GM 1 APPLIC TOP (10:05)
[2024-06-06] MEDS: SODIUM CHLORIDE 0.9% FLUSH 10 ML IV (10:05)
--- NOTE | 2024-06-06 10:50 | P.DS_ITS ---
History of Present Illness History of Present Illness Date Patient Seen: 06/06/24 Time Patient Seen: 10:10 Chief complaint: fall 05/25, abdomen injury Narrative: Per ER note: HPI narrative: Patient is a 73-year-old female. Has had multiple abdominal surgeries to include a gastric stapling for weight loss. Approximately 8 days ago she sustained an injury when she was trying to lift a heavy coffee table up onto a couch. States she fell forward and hit her abdomen either on the coffee table or on the couch. She states that she feels like her abdomen is bruised. Has not had a bowel movement. Has also been coughing/vomiting up dark substance. No problems breathing. No problems urinating. The patient reports to this provider that her last formed bowel movement was over week ago. She has been using senna and stool softeners which have not seemed to help. She denies chest pain, shortness of breath, or bleeding symptoms. Discharge Providers Provider Date of admission: 06/02/24 11:24 Discharge Date: 06/06/24 Primary care physician: Haley Bills PA-C Consults: 06/02/24 10:42 Consult to General Surgery Stat Comment: Consulting Provider: Norma Waldrop Reason for consultation: SBO Has provider been notified: Yes 06/02/24 10:43 Consult to General Surgery Stat Comment: Consulting Provider: Norma Waldrop Reason for consultation: sbo Has provider been notified: Yes 06/05/24 10:18 Consult to Physical Therapy Evaluate & Treat Comment: Physician Instructions: Evaluate and Treat Discharge provider: Heladio Green DO Summary Hospital Course Discharge Diagnosis: 1. Partial small bowel obstruction 2. Acute kidney injury due to dehydration, resolved 3. History of multiple abdominal surgeries. 4 Abdominal wall and lower extremity contusions. 5. Diabetes mellitus, type 2. 6. Hypertension. 7. Hyperlipidemia. 8. Tinea corporis. 9. oral with possible esophageal thrush. Hospital Course: 73 F admitted with nausea/vomiting and abdominal pain due to SBO. She had continued emesis and NG tube needed to be placed. Eventually had improvement in pain, distension with return of bowel function and tolerance of diet. No surgical intervention was necessary as her bowel obstruction resolved with conservative management only. She had presenting AMADEO which improved with fluid resuscitation as well. Patient was evaluated by physical therapy and did well enough to discharge home on 06/06. She was noted to have thrush on admission, not fully improved with nystatin therapy. At discharge, patient was changed to oral diflucan given some irritation in her throat for treatment of possible esophageal candidiasis, along with extensive skin fungal infections in multiple folds. Due to gastric irritation, recommended she trial increased omeprazole dosing, and her bowel movements were not melenotic at the time of discharge and h/h was stable. Time Spent with Patient Time spent: Greater than 30 minutes Exam Vital Signs (past 8 hours): - 06/06/24 04:00 06/06/24 08:00 06/06/24 10:04 Temperature 97 F L 97.1 F L Pulse Rate 91 H 91 H Respiratory Rate 20 16 Blood Pressure 115/53 L 123/66 123/66 Pulse Oximetry 94 99 Oxygen Flow Rate 0 Oxygen Delivery Method Room Air Oxygen Flow Rate 0 Narrative Exam Narrative: GENERAL: This is a well-nourished, well-developed patient, no acute distress. EYES: Pupils equal round and reactive. Extraocular motions intact. No scleral icterus. No injection or drainage. ENT: Mucous membranes pink and moist. NECK: Trachea midline. No JVD, bruits or lymphadenopathy. Supple, nontender, no meningeal signs. CARDIOVASCULAR: Regular rate and rhythm without murmurs, gallops, or rubs. RESPIRATORY: Clear to auscultation. GASTROINTESTINAL: Abdomen soft, nontender, nondistended. EXTREMITIES: No clubbing, cyanosis, or edema. NEUROLOGIC: Alert, oriented, speech fluent, full upper and lower motor strength, no focal deficits evident. DERMATOLOGIC: Intertriginous erythematous rash on lower abdominal skin folds. Lower extremity scattered ecchymoses, including a large left lateral lr 15 cm plus ecchymosis, that the patient states she sustained in October. Objective Labs 06/06/24 04:53 06/06/24 04:53 Labs: Laboratory Results - last 24 hr 06/06/24 04:53 WBC 4.0 L RBC 3.94 L Hgb 12.2 Hct 36.1 MCV 91.5 MCH 31.1 MCHC 34.0 RDW 14.9 H Plt Count 227 Neut % (Auto) 62.6 Lymph % (Auto) 24.5 L [place] % (Auto) 10.3 Eos % (Auto) 1.9 L Baso % (Auto) 0.7 Neut # (Auto) 2500 Lymph # (Auto) 1000 L [place] # (Auto) 400 Eos # (Auto) 100 Baso # (Auto) 0 Sodium 136 L Potassium 3.8 Chloride 109 H Carbon Dioxide 21 L BUN 38 H Creatinine 0.77 Estimated GFR > 60 BUN/Creatinine Ratio 49.4 H Glucose 133 H Calcium 9.4 PFSH Medical History GERD (gastroesophageal reflux disease) Osteoarthritis Low back pain Right shoulder pain History of prosthetic unicompartmental arthroplasty of left knee Small bowel obstruction (~2009) HLD (hyperlipidemia) HTN (hypertension) Pneumonia (~1973) Abdominal hernia Surgical History Status post left 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 Recommend increasing omeprazole to twice daily. Will also give a 2 week course of fluconazole for skin rashes, and thrust noticed with possible esophagitis as well. This medication will also help take care of your skin rashes as well. No other medication changes are recommended on discharge. Discharge orders & Medications Prescriptions: New fluconazole 200 mg tablet 200 mg PO DAILY 14 Days Qty: 14 0RF Continued cholecalciferol (vitamin D3) [Vitamin D3] 5,000 unit Tablet 10,000 unit PO DAILY Qty: 0 losartan 25 MG tablet 50 mg PO BID Qty: 0 Fish Oil 360 mg-144 mg- 216 mg-1,200 mg Capsule,Delayed Release(Dr/Ec) 2 cap PO BID Qty: 0 Rx Instructions: 2 tabs qam, 1 tab noon atorvastatin 20 mg Tablet 20 mg PO BEDTIME naproxen sodium [Aleve] 220 mg Capsule 220 mg PO BID metformin 500 mg Tablet 500 mg PO DAILY Trulicity 1.5 mg/0.5 mL Pen Injector 1.5 mg SUBCUT WEEKLY Patient Comments: Injects on Tuesdays Rx Instructions: takes weekly on Wednesday acetaminophen 1,000 mg PO DAILY PRN (Reason: Pain (Scale Score 1-3)) Changed omeprazole 20 MG capsule,delayed release(DR/EC) 20 mg PO BID Qty: 14 0RF Medication counseling provided by Pharmacist: Yes Follow up/Referrals: Haley Bills PA-C [Primary Care Provider] - Diet/Activity/Treatments Diet: Diet as Tolerated Diet comment: As tolerated, no restrictions Activity: As tolerated, no restrictions. Visit Report/Discharge Packet Instructions: DI for Small Bowel Obstruction, Fluconazole Stand Alone Forms: Patient Portal/API, Stroke Signs & Symptoms Discharge Data Primary Care Provider: Haley Bills Quality VTE Deep Vein Thrombosis/Pulmonary Embolism Present on Admission: No
--- NOTE | 2024-06-06 11:16 | PT.IPTN ---
Current Diagnoses Unspecified intestinal obstruction, unspecified as to partial versus complete obstruction (06/02/24) Physical Therapy Treatment Note M2 PT-IP Current Condition Start: 06/05/24 10:28 Freq: NEEDED Status: Active Protocol: Document 06/05/24 14:31 MB (Rec: 06/05/24 15:09 MB [id number]) Physical Therapy Current Condition Current Condition Evaluation Date 06/05/24 Treatment Diagnosis Fall and abdominal pain and issues M3 PT-IP Subjective Start: 06/05/24 10:28 Freq: NEEDED Status: Active Protocol: Document 06/06/24 11:16 AB (Rec: 06/06/24 13:01 AB [id number]) Subjective Physical Therapy Visit Type Type Treatment Note Visit Start Time 11:16 Visit Stop Time 11:56 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 Physical Therapy Visit Comments Patient Comments agreeable to do PT Therapy Pain Assessment Pain When Pain Assessed At Rest Pain Present Pain Present Pain Reported Location Back Scale Used pain scale not stated Pain Management Techniques Modification of Treatment,Re- positioning,Timing of Activity with Medications M4 PT-IP Mobility and Gait Start: 06/05/24 10:28 Freq: NEEDED Status: Active Protocol: Document 06/06/24 11:16 AB (Rec: 06/06/24 13:01 AB [id number]) PT-Bed Mobility Assessment Supine to Sit Supine to Sit Independent PT-Transfer Assessment Sit to and From Stand Sit to and from Stand Standby Assistance Equipment Transfer Assistive Device 4 Wheeled Walker Orthotic/Prosthetic Devices or Brace: No Transfers Transfer Destination Chair Transfer Technique ambulated Transfer Ability Level of Assist Standby Assistance,1 Person Assistance,Use of Upper Extremities Comments Mobility Comments pt supine in bed and agreeable to do PT. pt completed supine to sit mod I. able to sit on EOB SBA. completed sit to stand SBA and ambulated using a 4WW in the hallway SBA . presents with antalgic gait and heavy UE use on 4WW. also presents with stooped posture. c/o back pain and stated that it is chronic pain . pt ambulated ~ 100 ft. pt ambulated back to her room and sat on the chair. positioned pt on the chair. call light and table placed within reach. Gait Assessment Gait Gait Assistance Required: Standby Assistance Distance (Feet) 100 Able to Maintain Weight Bearing Status Yes During Gait Assistive Devices Assistive Device 4 Wheeled Walker Orthotic/Prosthetic Devices or Brace: No Gait Deviations General Gait Pattern Antalgic,Decreased Stride Length,Decreased Feet Clearance Factors Limiting Gait Function Factors Limiting Gait Function Decreased Activity Tolerance, Decreased Strength,Limited Range of Motion,Pain M5 PT-IP Objective Assessments Start: 06/05/24 10:28 Freq: NEEDED Status: Active Protocol: Document 06/05/24 14:31 MB (Rec: 06/05/24 15:09 MB [id number]) Orientation Orientation/Cognition Level of Alertness Alert Orientation Name,Age,Birthday,Month,Date, Year,Day of Week,Place, Situation Language Function Ability No Deficits Noted Safety Awareness Decreased Safety Awareness Memory Description No Deficits Noted Gross Range of Motion Upper Extremity ROM Assessment Within Functional Limits Lower Extremity ROM Assessment Within Functional Limits Impairments Functional weakness in LLE with gait Strength Upper Extremity Strength Assessment Within Functional Limits Lower Extremity Strength Assessment Left Impaired Comments Strength Comments LLE is functionally weak with gait today Sensation Assessment Sensation Gross Sensation WNL Muscle Tone Muscle Tone WNL Yes M6 PT-IP Treatment Start: 06/05/24 10:28 Freq: NEEDED Status: Active Protocol: Document 06/06/24 11:16 AB (Rec: 06/06/24 13:01 AB [id number]) Physical Therapy Treatment Education Education Provided Safety M7 PT-IP Assessment and Plan Start: 06/05/24 10:28 Freq: NEEDED Status: Active Protocol: Document 06/06/24 11:16 AB (Rec: 06/06/24 13:01 AB [id number]) PT Summary Assessment and Plan Potential Rehabilitation Potential Good Summary Impairments Pain,ROM,Strength,Balance,Bed Mobility,Transfers,Gait, Activity Tolerance Progress Towards Goals Slow Progress due to Pain,Slow Progress due to Medical Issues,Slow Progress due to Activity Tolerance Assessment Summary pt requiring SBA with mobility using 4WW. informed pt to continue using 4WW and pt agreed. pt has chronic back pain and has been using a 4WW on/off depending on pain. pt has room mates that will be able to assist. pt may benefit from HHPT. Goals Bed Mobility Goal Independent Transfer Goal Independent,Four Wheeled Walker Gait Goal Independent,Four Wheel Walker Gait Distance 200 Days to Meet Goals 3 Frequency of Treatment Frequency Of Treatment Once a Day Treatment Plan Physical Therapy Treatment Plan Bed Mobility Training,Transfer Training,Gait Training, Therapeutic Exercise,Balance Retraining,Discharge Planning, Hot or Cold Pack,Neuromuscular Re-ed,Coordination Retraining ,Manual Therapy Recommendations To Nursing Amount of Assist Needed 1 Person Assist Discharge Recommendations PT Discharge Recommendations Home with Assistance Transportation Needs at Discharge Private Vehicle
[2024-06-06 11:49] VITALS: BP 126/61; PULSE 100; RESP 16; TEMP 36; O2SAT 98
--- NOTE | 2024-06-06 11:57 | CM.DPC ---
DCP Continued: Reviewed EMR and team rounds for pt?s medical status. No new discharge needs identified at this time. Per rounds, pt to discharge home if able to tolerate advancing diet. Plan: Discharge orders in, pt to discharge home with friend to transport. CM Team will continue to follow for coordination of discharge plans. RASHMI Shahid
[2024-06-06] MEDS: INSULIN LISPRO 100 UNIT/ML 3ML VIAL SUBCUT (13:08)
[2024-06-06] MEDS: FISH OIL 1,000 MG CAPSULE 1000 MG PO (13:11)
--- NOTE | 2024-06-06 14:30 | PC.NURSE ---
Pt is getting dressed. Her IV has been removed. Went over d/c instructions with Pt-discussed d/c meds, time of last dose, reviewed stroke education, encouraged fluid intake to prevent constipation or dehydration, counseled Pt to take full course of abx as ordered and consider a stool softener and easy to digest foods for now, and to follow up as directed. Pt denied further questions and will be taken out via w/c by COMMISSIONS MANAGER to POV with friend and all belongings.
--- NOTE | 2024-06-07 07:13 | PC.WOUNDPHOT ---
Late Entry: Photo taking 06/04/24
== END 2024-06-06 15:07 | disposition home or self-care (01) | DRG 389 ==
LOC: ED 11:24 → AC 12:58
PROVIDERS: Internal Medicine; Admitting Provider Internal Medicine; Emergency Provider Emergency Medicine; PCP Physician Assistant Medical; Referring Provider Emergency Medicine; Visit Provider Internal Medicine
DX: K56.51 Intestinal adhesions [bands], with partial obstruction (principal); B37.0 Candidal stomatitis; N17.9 Acute kidney failure, unspecified; B37.81 Candidal esophagitis; E86.0 Dehydration; S30.1XXA Contusion of abdominal wall, initial encounter; S80.12XA Contusion of left lower leg, initial encounter; S80.11XA Contusion of right lower leg, initial encounter; E11.9 Type 2 diabetes mellitus without complications; I10 Essential (primary) hypertension; E78.5 Hyperlipidemia, unspecified; B35.4 Tinea corporis; K21.00 Gastro-esophageal reflux disease with esophagitis, without bleeding; W22.03XA Walked into furniture, initial encounter; Z79.84 Long term (current) use of oral hypoglycemic drugs; Z98.84 Bariatric surgery status; Z79.85 Long-term (current) use of injectable non-insulin antidiabetic drugs
CPT/HCPCS: 36415; 74018; 74177; 80048; 80053; 82962; 83690; 85025; 96360; 97116; 97161; 97530; 99284; 99285; A9270; J1170; J1815; J2405; Q9967

== ENCOUNTER → 2024-07-15 10:01 | Outpatient (CLI) | payer MEDICARE, SELFPAY ==
[2024-06-02 13:32] VITALS: BMI 36.3
--- NOTE | 2024-07-15 10:03 | DI.CT.S_ITS ---
PROCEDURE: CT ABDOMEN PELVIS W CON INDICATIONS: ABDOMINAL PAIN TECHNIQUE: After the administration of intravenous contrast, axial sections acquired from the lung bases to the pubic symphysis. Coronal and sagittal reformats were performed. For radiation dose reduction, the following was used: automated exposure control, adjustment of mA and/or kV according to patient size. COMPARISON: [facility], CT, CT ABDOMEN PELVIS W CON, 06/02/2024, 9:57. FINDINGS: Image quality: Diagnostic. Lower Chest: Dependent atelectasis/scarring in posterior and lateral aspect of bilateral lung bases are seen. Heart size is enlarged, no pericardial effusion. ABDOMEN: Liver: No solid mass. Gallbladder: Gallbladder is surgically absent. Biliary ducts: No biliary dilation. Pancreas: No ductal dilation. Spleen: Size is within normal limits. Adrenal Glands: No adrenal nodules. Kidneys and Ureters: No hydronephrosis. Nonobstructing stone in lower pole left kidney is again seen unchanged from prior study. Simple appearing right renal cysts are seen. No solid mass. No complex renal cystic lesion which requires follow up. Stomach and Bowel: Postsurgical changes from prior gastric bypass. There is no bowel obstruction. No abnormal bowel wall thickening or mesenteric fat stranding. Sigmoid diverticulosis without CT evidence of acute diverticulitis. No abscess collection. Peritoneum: No abnormal intraperitoneal fluid. No free air. Ventral Wall: No significant ventral hernia. Abdominal Nodes: No retroperitoneal or mesenteric adenopathy by size criteria. Vessels: Aorta and inferior vena cava are normal in size. PELVIS: Pelvic Organs: Cystic structure within left labia is again seen unchanged from prior study and may represent partial and gland cyst. Bladder: No bladder wall thickening, accounting for underdistention. Pelvic Nodes: No enlarged lymph nodes. Miscellaneous: No inguinal hernias are seen. Bones: No aggressive osseous abnormality. IMPRESSION: 1. No evidence of bowel obstruction. No abnormal bowel wall thickening or mesenteric fat stranding. No free fluid or free air. 2. Nonobstructing stone in lower pole left kidney unchanged from prior studies. No hydronephrosis or hydroureter. 3. Other findings are not significantly changed from previous study. Dictated by: Herve Johnston M.D. on 07/15/2024 at 16:47 Approved by: Herve Johnston M.D. on 07/15/2024 at 16:50
[2024-07-15 10:31] LABS: Estimated Glomerular Filt Rate > 60 mL/min (>60)
== END ==
LOC: CT 10:02
PROVIDERS: Radiology Diagnostic Radiology; PCP Physician Assistant Medical; Referring Provider Physician Assistant Medical; Visit Provider Physician Assistant Medical
DX: N20.0 Calculus of kidney (principal); N28.1 Cyst of kidney, acquired; K57.30 Diverticulosis of large intestine without perforation or abscess without bleeding; R10.32 Left lower quadrant pain; I51.7 Cardiomegaly; N90.9 Noninflammatory disorder of vulva and perineum, unspecified; Z90.49 Acquired absence of other specified parts of digestive tract
CPT/HCPCS: 36415; 74177; 82565; Q9967

== ENCOUNTER 2024-12-10 05:05 | Inpatient (IN) | payer MEDICARE, SELFPAY ==
[2024-06-02 13:32] VITALS: BMI 36.3
[2024-12-10] VITALS (18 sets, daily range): BP systolic 110–129; BP diastolic 56–87; PULSE 90–117; RESP 12–24; TEMP 35.9–36.6; O2SAT 85–98; BMI 31.5; BMI 28.4
--- NOTE | 2024-12-10 05:19 | DI.CT.S_ITS ---
PROCEDURE: CT ABDOMEN PELVIS W CON INDICATIONS: vomiting x 4 days, L sided abd pain, prior hx sbo TECHNIQUE: After the administration of intravenous contrast, axial sections acquired from the lung bases to the pubic symphysis. Coronal and sagittal reformats were performed. For radiation dose reduction, the following was used: automated exposure control, adjustment of mA and/or kV according to patient size. COMPARISON: [facility], CT, CT ABDOMEN PELVIS W CON, 07/15/2024, 11:47. [facility], CT, CT ABDOMEN PELVIS W CON, 09/18/2022, 9:36. FINDINGS: Image quality: Diagnostic. Lower Chest: No significant findings. ABDOMEN: Liver: No solid mass. Diffuse fatty liver infiltration is noted. Gallbladder: Cholecystectomy. Biliary ducts: No biliary dilation. Pancreas: No ductal dilation. Spleen: Size is within normal limits. Adrenal Glands: No adrenal nodules. Kidneys and Ureters: No hydronephrosis. No solid mass. No complex renal cystic lesion which requires follow up. At the inferior pole of the left kidney, there is again seen a nonobstructing stone, as on series 2, image 61, measuring 10 mm and 850 Hounsfield units. Stomach and Bowel: There are postoperative changes seen of the stomach. Abnormally dilated loops of fluid-filled small bowel can be seen proximally, measuring up to 4.2 cm. There is a transition point within the left lower quadrant, as on series 4, image 42. Distal to this7 point, the small bowel is decompressed. No significant colonic abnormality is seen. The colon is relatively decompressed. There is rectosigmoid postoperative change. Mild distal colonic diverticulosis is seen, without findings of active diverticulitis. Peritoneum: No abnormal intraperitoneal fluid. No free air. Ventral Wall: Postoperative change can be seen in the anterior abdominal wall, with scarring and with irregular mesh. No recurrent hernia is seen. Abdominal Nodes: No retroperitoneal or mesenteric adenopathy by size criteria. Vessels: Aorta and inferior vena cava are normal in size. PELVIS: Pelvic Organs: No adnexal masses are seen on either side. Sterilization clips are incidentally noted within the pelvis. There is a likely left Bartholin's gland cyst, as on series 2, image 138. Bladder: No bladder wall thickening, accounting for underdistention. Pelvic Nodes: No enlarged lymph nodes. Miscellaneous: No inguinal hernias are seen. Bones: No aggressive osseous abnormality. IMPRESSION: Small-bowel obstruction, with a transition point within the left lower quadrant. Anterior abdominal wall postoperative change, with irregular mesh. Additional findings: Postoperative change of the stomach Fatty liver infiltration Cholecystectomy Nonobstructing left-sided kidney stone Rectosigmoid postoperative change Diverticulosis, without active diverticulitis Sterilization clips Likely left Bartholin's gland cyst, similar to prior Note: No significant discrepancy from the preliminary report. Dictated by: Maciej Morrow M.D. on 12/10/2024 at 8:15 Approved by: Maciej Morrow M.D. on 12/10/2024 at 8:22
[2024-12-10] MEDS: SODIUM CHLORIDE 0.9% 1,000 ML 1000 ML IV (05:23)
[2024-12-10] MEDS: ONDANSETRON 4 MG/2 ML INJ IV (05:24)
[2024-12-10 05:39] LABS: Add Manual Diff / Slide Review NO; Basophils Absolute Auto 0 /uL (0-100); Basophils Percent Auto 0.5 % (0-2); Eosinophils Absolute Auto 100 /uL (0-450); Eosinophils Percent Auto 1.3 % (2-4); Hematocrit 44.9 % (36-46); Hemoglobin 15.1 g/dL (12.0-16.0); Lymphocytes Absolute Auto 1000 /uL (1100-4500); Mean Corpuscular HGB Conc 33.6 % (30-36); Mean Corpuscular Hemoglobin 30.7 PG (26-34); Mean Corpuscular Volume 91.6 fL (80-100); Monocytes Absolute Auto 700 /uL (0-900); Monocytes Percent Auto 9.2 % (3-14); Neutrophils Absolute Auto 6200 /uL (1500-7000); Platelet Count 296 X10^3/uL (150-400); Red Cell Distribution Width 14.7 % (11.6-14.8)
--- NOTE | 2024-12-10 05:42 | ED.NAVMDI ---
HPI - Nausea/Vomiting/Diarrhea <Letha Van Saman, DO - Last Filed: 12/18/24 18:34> General Chief complaint: Nausea/Vomiting/Diarrhea Stated complaint: vomiting Time Seen by Provider: 12/10/24 05:10 Source: EMS Mode of arrival: EMS History of Present Illness HPI Narrative: 74-year-old female history of prior stroke on aspirin daily, hypertension, dyslipidemia, diabetes with prior abdominal surgeries and prior small bowel obstruction. Patient presents with complaint of nausea and vomiting for the past 4 days which has been persistent. She was started having diarrhea initially has had very minimal stool output since. She describes a few kathy here and there. She states abdominal pain with palpation but otherwise she does not have much pain. She denies fevers or chills. No chest pain or shortness of breath., she was noted a little bit of dysuria but no urgency or frequency. She denies any new swelling of her extremities. Does note a little bit of a bruising on her left lower abdomen states up from her Trulicity shot. Patient states prior surgeries and cold shoulder and knee surgery she states no prior cardiac surgery has had gastric stapling for weight loss in the past. Patient has a long list of allergies. No tobacco, alcohol or recreational drugs. Related Data Home Medications Medication Instructions Recorded Confirmed cholecalciferol (vitamin D3) 125 10,000 unit PO DAILY ##0 07/08/10 12/10/24 mcg (5,000 unit) tablet (Vitamin D3) losartan 25 mg tablet 50 mg PO BID ##0 04/27/11 12/10/24 omega-3 360 mg-dha 144 mg-epa 216 2 cap PO BID ##0 04/27/11 12/10/24 mg-fish oil 1,200 mg capsule,del rel (Fish Oil) atorvastatin 20 mg tablet 80 mg PO BEDTIME 09/28/19 12/10/24 naproxen sodium 220 mg capsule 220 mg PO BID 09/28/19 12/10/24 (Aleve) dulaglutide 1.5 mg/0.5 mL 1.5 mg SUBCUT WEEKLY 06/09/22 12/10/24 subcutaneous pen injector (Trulicity) metformin 500 mg tablet 500 mg PO DAILY 06/09/22 12/10/24 amlodipine 5 mg tablet 5 mg PO DAILY 02/16/25 02/16/25 cyclosporine 0.05 % eye drops in a 1 drp EYE-BOTH BID 12/10/24 12/10/24 dropperette gabapentin 100 mg capsule 100 mg PO 3XD 12/10/24 12/10/24 metronidazole 0.75 % topical cream 1 applic topical DAILY 12/10/24 12/10/24 minocycline 100 mg capsule 100 mg PO BID 12/10/24 12/10/24 nystatin 100,000 unit/gram topical 1 applic topical PRN PRN fungal 12/10/24 12/10/24 ointment omeprazole 20 mg capsule,delayed 20 mg PO DAILY 12/10/24 12/10/24 release quetiapine 25 mg tablet 25 mg PO BEDTIME insomnia 12/10/24 12/10/24 triamcinolone acetonide 0.1 % 1 applic topical BID 12/10/24 12/10/24 topical ointment Previous Rx's Medication Instructions Recorded amoxicillin 875 mg-potassium 1 tab PO BID 10 days #20 tabs 12/14/24 clavulanate 125 mg tablet Allergies Allergy/AdvReac Type Severity Reaction Status Date / Time Sulfa (Sulfonamide Allergy Severe ITCHING Verified 06/17/22 06:42 Antibiotics) ascorbic acid Allergy Intermediate Rash Verified 06/17/22 06:42 citalopram [From Celexa] Allergy Pt does Verified 06/17/22 06:42 not remember reaction doxycycline Allergy Pt does Verified 06/17/22 06:42 not remember reaction escitalopram [From Lexapro] Allergy Pt does Verified 06/17/22 06:42 not remember reaction lisinopril Allergy Pt does Verified 06/17/22 06:42 not remember reaction meloxicam [From Mobic] Allergy Pt does Verified 06/17/22 06:42 not remember reaction metronidazole [From Flagyl] Allergy Pt does Verified 06/17/22 06:42 not remember reaction montelukast [From Singulair] Allergy Pt does Verified 06/17/22 06:42 not remember reaction piroxicam [From Feldene] Allergy Pt does Verified 06/17/22 06:42 not remember reaction sulfamethoxazole Allergy Pt does Verified 06/17/22 06:42 [From Septra] not remember reaction sulfur dioxide Allergy Pt does Verified 06/17/22 06:42 not remember reaction trimethoprim [From Septra] Allergy Pt does Verified 06/17/22 06:42 not remember reaction hydromorphone [From Dilaudid] AdvReac Severe Hallucinati Verified 12/13/24 19:41 ng Influenza Virus Vaccines AdvReac Severe Hives Verified 06/17/22 06:42 oxycodone [From Percocet] AdvReac Severe Hallucinati Verified 06/17/22 06:42 ng propoxyphene AdvReac Severe Hallucinati Verified 06/17/22 06:42 [From Darvocet-N] ng codeine AdvReac Pt unsure, Verified 06/17/22 06:42 thinks possibly nausea Review of Systems <Letha Davison DO - Last Filed: 12/18/24 18:34> Review of Systems ROS Unobtainable: All systems reviewed & are unremarkable except as noted in HPI and below Patient History <Letha Davison DO - Last Filed: 12/18/24 18:34> Medical History GERD (gastroesophageal reflux disease) Osteoarthritis Low back pain Right shoulder pain History of prosthetic unicompartmental arthroplasty of left knee Small bowel obstruction (~2009) HLD (hyperlipidemia) HTN (hypertension) Pneumonia (~1973) Abdominal hernia Surgical History Status post left 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) H/O shoulder surgery Hx of tonsillectomy Hx of varicose vein stripping History of bilateral tubal ligation (~1984) Hx of cholecystectomy (~1977) Hx of appendectomy History of hernia repair Hx of colectomy (~2003) H/O medial meniscus repair of right knee (2007) H/O gastric bypass (~1979) Social History household members: other Smoking Status: Never smoker alcohol intake: former Smoking Status: Never smoker alcohol intake frequency: holidays/special occasions only Exam <Letha Davison DO - Last Filed: 12/18/24 18:34> Narrative Exam Narrative: GENERAL: Alert and oriented x three, female in mild distress HEENT: Head normocephalic, atraumatic, EOMI, pupils reactive, face symmetric, moist mucous membranes NECK: Supple, full range of motion CARDIOVASCULAR: Regular rate and rhythm without murmurs, rubs or gallops. RESPIRATORY: Breath sounds equal bilaterally, no wheezes rales or rhonchi. ABDOMEN: Soft, patient is tender particularly left lower quadrant but somewhat periumbilical. Does have a small umbilical hernia that is nontender and reducible. Normoactive bowel sounds all 4 quadrants. No guarding or rebound, rigidity, no mass, patient has area of ecchymosis of the left lower quadrant states that is where she had her Trulicity injection. : No CVA tenderness EXTREMITIES: Normal range of motion, no clubbing or edema. Neurovascularly intact NEUROLOGICAL: Cranial nerves II through XII grossly intact. Moving all extremities SKIN: Warm, dry, no petechiae, no rashes or lesions. Initial Vital Signs Initial Vital Signs: Vital Signs Temperature 97.9 F 12/10/24 05:05 Pulse Rate 106 H 12/10/24 05:05 Respiratory Rate 16 12/10/24 05:05 Blood Pressure 129/73 12/10/24 05:05 Pulse Oximetry 97 12/10/24 05:05 Oxygen Delivery Method Room Air 12/10/24 05:05 <Fauzia Olmedo DO - Last Filed: 12/10/24 12:06> Initial Vital Signs Initial Vital Signs: Vital Signs Temperature 97.9 F 12/10/24 05:05 Pulse Rate 106 H 12/10/24 05:05 Respiratory Rate 16 12/10/24 05:05 Blood Pressure 129/73 12/10/24 05:05 Pulse Oximetry 97 12/10/24 05:05 Oxygen Delivery Method Room Air 12/10/24 05:05 Course <Letha Davison DO - Last Filed: 12/18/24 18:34> Orders Ordered: Discontinued Medications Acetaminophen (Acetaminophen 325 Mg Tablet) 975 mg PO Q8H PRN PRN Reason: Pain, Mild (1-3) Last Admin: 12/14/24 14:43 Dose: 975 mg Documented By: Admin: 12/14/24 02:00 Dose: 975 mg Documented By: CT Atorvastatin Calcium (Atorvastatin 20 Mg Tablet) 80 mg PO BEDTIME [facility] Last Admin: 12/13/24 21:37 Dose: 80 mg Documented By: Admin: 12/12/24 20:14 Dose: 80 mg Documented By: Benzocaine (Benzocaine/Menthol 1 Sameer Pkt) 1 each PO NOW ONE Stop: 12/10/24 16:31 Last Admin: 12/10/24 16:26 Dose: 1 each Documented By: TAVARES Benzocaine/Butamben/Tetracaine HCl (Tetracaine/Benzocaine/Butamben (Cetacaine) Bottle) 1 spray TOP NOW ONE Stop: 12/10/24 08:15 Last Admin: 12/10/24 08:37 Dose: 1 spray Documented By: FORREST Benzocaine/Butamben/Tetracaine HCl (Tetracaine/Benzocaine/Butamben (Cetacaine) Bottle) 1 spray TOP PRN PRN PRN Reason: Sore Throat Last Admin: 12/11/24 12:47 Dose: 1 spray Documented By: (2) Admin: 12/10/24 21:21 Dose: 1 spray Documented By: BROOK Dextrose (Dextrose 50 % In Water 25 Gm/50 Ml Syringe) 12.5 gm IV PRN PRN PRN Reason: Hypoglycemia Gabapentin (Gabapentin 100 Mg Capsule) 100 mg PO TID [facility] Last Admin: 12/14/24 09:06 Dose: 100 mg Documented By: Admin: 12/13/24 21:37 Dose: 100 mg Documented By: Admin: 12/13/24 15:58 Dose: 100 mg Documented By: Admin: 12/13/24 10:07 Dose: 100 mg Documented By: Admin: 12/12/24 20:14 Dose: 100 mg Documented By: Admin: 12/12/24 15:44 Dose: 100 mg Documented By: Admin: 12/12/24 09:30 Dose: Not Given Documented By: KATHRYN Heparin Sodium (Porcine) (Heparin 5,000 Unit/Ml Vial) 5,000 unit SUBCUT BID [facility] Last Admin: 12/14/24 09:06 Dose: 5,000 unit Documented By: Admin: 12/13/24 21:37 Dose: 5,000 unit Documented By: Admin: 12/13/24 10:07 Dose: 5,000 unit Documented By: Admin: 12/12/24 20:14 Dose: 5,000 unit Documented By: Admin: 12/12/24 09:14 Dose: 5,000 unit Documented By: Admin: 12/11/24 21:01 Dose: 5,000 unit Documented By: Admin: 12/11/24 09:07 Dose: 5,000 unit Documented By: MS(2) Admin: 12/10/24 21:22 Dose: 5,000 unit Documented By: BROOK Hydromorphone HCl (Hydromorphone 0.5 Mg Inj) 0.5 mg IV NOW ONE Stop: 12/10/24 07:32 Last Admin: 12/10/24 07:56 Dose: 0.5 mg Documented By: RB Hydromorphone HCl (Hydromorphone 0.5 Mg Inj) 0.5 mg IV Q2H PRN PRN Reason: Pain, Severe (7-10) Last Admin: 12/11/24 10:21 Dose: 0.5 mg Documented By: MS(2) Admin: 12/11/24 08:03 Dose: 0.5 mg Documented By: MS(2) Admin: 12/10/24 21:41 Dose: 0.5 mg Documented By: Admin: 12/10/24 12:48 Dose: 0.5 mg Documented By: LDV Hydromorphone HCl (Hydromorphone 0.5 Mg Inj) 1 mg IV Q2H PRN PRN Reason: Pain, Severe (7-10) Last Admin: 12/11/24 18:35 Dose: 1 mg Documented By: MS(2) Admin: 12/11/24 16:48 Dose: 1 mg Documented By: MS(2) Admin: 12/11/24 14:45 Dose: 1 mg Documented By: MS(2) Admin: 12/11/24 12:39 Dose: 1 mg Documented By: MS(2) Hydromorphone HCl (Hydromorphone 1 Mg Inj) 1 mg IV Q2H PRN PRN Reason: Pain, Severe (7-10) Last Admin: 12/12/24 20:15 Dose: 1 mg Documented By: MS Sodium Chloride (Normal Saline 0.9%) 1,000 mls @ 1,000 mls/hr IV BOLUS ONE Stop: 12/10/24 06:18 Last Infusion: 12/10/24 06:18 Dose: Infused Documented By: Admin: 12/10/24 05:23 Dose: 1,000 mls/hr Documented By: HNG Sodium Chloride (Normal Saline 0.9%) 1,000 mls @ 100 mls/hr IV CONT ANNABEL Last Admin: 12/10/24 07:57 Dose: 100 mls/hr Documented By: RB Lactated Ringer's (Lactated Ringers) 1,000 mls @ 100 mls/hr IV CONT ANNABEL Last Admin: 12/12/24 00:49 Dose: 100 mls/hr Documented By: Infusion: 12/12/24 00:49 Dose: Infused Documented By: Admin: 12/11/24 16:54 Dose: 100 mls/hr Documented By: MS(2) Infusion: 12/11/24 16:54 Dose: Infused Documented By: MS(2) Admin: 12/11/24 07:00 Dose: 100 mls/hr Documented By: Infusion: 12/11/24 07:00 Dose: Infused Documented By: Admin: 12/10/24 21:21 Dose: 100 mls/hr Documented By: Infusion: 12/10/24 21:21 Dose: Infused Documented By: Admin: 12/10/24 12:45 Dose: 100 mls/hr Documented By: LDV Acetaminophen (Ofirmev) 1,000 mg in 100 mls @ 400 mls/hr IV Q6H PRN PRN Reason: Fever/Mild Pain (1-3) Last Infusion: 12/11/24 20:48 Dose: Infused Documented By: Admin: 12/11/24 20:33 Dose: 400 mls/hr Documented By: Infusion: 12/11/24 15:19 Dose: Infused Documented By: MS(2) Admin: 12/11/24 14:46 Dose: 400 mls/hr Documented By: MS(2) Dextrose (D10w) 100 mls @ 1,200 mls/hr IV PRN PRN PRN Reason: Hypoglycemia Lactated Ringer's (Lactated Ringers) 500 mls @ 500 mls/hr IV BOLUS ONE Stop: 12/11/24 20:55 Last Infusion: 12/11/24 21:00 Dose: Infused Documented By: Admin: 12/11/24 19:56 Dose: 500 mls/hr Documented By: BROOK Acetaminophen (Ofirmev) 1,000 mg in 100 mls @ 400 mls/hr IV Q6H PRN PRN Reason: Fever/Mild Pain (1-3) Insulin Human Lispro (Insulin Lispro 100 Unit/Ml 3ml Vial) 0 unit SUBCUT Q6H ANNA[facility]; Protocol Last Admin: 12/12/24 14:30 Dose: Not Given Documented By: Admin: 12/12/24 08:30 Dose: 1 unit Documented By: KATHRYN Co-signed By: LINDA Admin: 12/12/24 02:30 Dose: Not Given Documented By: Admin: 12/11/24 21:01 Dose: Not Given Documented By: Admin: 12/11/24 15:19 Dose: Not Given Documented By: (2) Admin: 12/11/24 08:35 Dose: Not Given Documented By: MS(2) Admin: 12/11/24 04:58 Dose: Not Given Documented By: Admin: 12/10/24 21:22 Dose: Not Given Documented By: BROOK Insulin Human Lispro (Insulin Lispro 100 Unit/Ml 3ml Vial) 0 unit SUBCUT ACHS ANNABEL; Protocol Last Admin: 12/14/24 12:16 Dose: 1 unit Documented By: VINCENT Co-signed By: ALINA Admin: 12/14/24 08:07 Dose: Not Given Documented By: Admin: 12/13/24 21:38 Dose: Not Given Documented By: Admin: 12/13/24 16:46 Dose: 1 unit Documented By: KATHRYN Co-signed By: LINDA Admin: 12/13/24 12:00 Dose: Not Given Documented By: Admin: 12/13/24 07:45 Dose: Not Given Documented By: Admin: 12/12/24 21:10 Dose: Not Given Documented By: Admin: 12/12/24 18:09 Dose: 1 unit Documented By: KATHRYN Co-signed By: LINDA Lorazepam (Lorazepam 2 Mg/Ml Inj) 0.5 mg IV Q4HR PRN PRN Reason: Anxiety Last Admin: 12/11/24 08:03 Dose: 0.5 mg Documented By: (2) Admin: 12/11/24 02:52 Dose: 0.5 mg Documented By: Admin: 12/10/24 20:52 Dose: 0.5 mg Documented By: BROOK Lorazepam (Lorazepam 2 Mg/Ml Inj) 0.5 mg IV Q2HR PRN PRN Reason: Anxiety Last Admin: 12/12/24 20:14 Dose: 0.5 mg Documented By: Admin: 12/11/24 18:35 Dose: 0.5 mg Documented By: MS(2) Admin: 12/11/24 16:49 Dose: 0.5 mg Documented By: MS(2) Admin: 12/11/24 15:11 Dose: 0.5 mg Documented By: MS(2) Admin: 12/11/24 12:40 Dose: 0.5 mg Documented By: MS(2) Magnesium Chloride (Magnesium Chloride 64 Mg Tablet) 128 mg PO NOW ONE Stop: 12/14/24 11:51 Last Admin: 12/14/24 12:16 Dose: 128 mg Documented By: BT Naloxone HCl (Naloxone 0.4 Mg/Ml Vial) 0.2 mg IV Q2MIN PRN PRN Reason: Opiate Reversal Cyclosporine 0.05 % (Dropperette) 1 drop EYE-BOTH BID ANNA[facility] Last Admin: 12/14/24 09:06 Dose: Not Given Documented By: Admin: 12/13/24 21:38 Dose: Not Given Documented By: Admin: 12/13/24 10:01 Dose: Not Given Documented By: Admin: 12/12/24 20:17 Dose: Not Given Documented By: Admin: 12/12/24 10:00 Dose: Not Given Documented By: KATHRYN Ondansetron HCl (Ondansetron 4 Mg/2 Ml Inj) 4 mg IV NOW ONE Stop: 12/10/24 05:20 Last Admin: 12/10/24 05:24 Dose: 4 mg Documented By: KT Ondansetron HCl (Ondansetron 4 Mg/2 Ml Inj) 4 mg IV Q8HR PRN PRN Reason: Nausea And Vomiting Ondansetron HCl (Ondansetron 4 Mg/2 Ml Inj) 4 mg IV Q4HR PRN PRN Reason: nausea Last Admin: 12/11/24 16:49 Dose: 4 mg Documented By: MS(2) Admin: 12/11/24 12:43 Dose: 4 mg Documented By: MS(2) Admin: 12/11/24 09:07 Dose: 4 mg Documented By: MS(2) Pantoprazole Sodium (Pantoprazole 40 Mg Vial) 40 mg IV NOW ONE Stop: 12/10/24 07:32 Last Admin: 12/10/24 07:56 Dose: 40 mg Documented By: RB Pantoprazole Sodium (Pantoprazole 40 Mg Vial) 40 mg IV BID [facility] Last Admin: 12/12/24 09:14 Dose: 40 mg Documented By: Admin: 12/11/24 21:01 Dose: 40 mg Documented By: Admin: 12/11/24 08:03 Dose: 40 mg Documented By: MS(2) Admin: 12/10/24 21:22 Dose: 40 mg Documented By: BROOK Pantoprazole Sodium (Pantoprazole Dr 20 Mg Tablet) 20 mg PO DAILY [facility] Last Admin: 12/14/24 09:06 Dose: 20 mg Documented By: Admin: 12/13/24 10:07 Dose: 20 mg Documented By: AB Prochlorperazine (Prochlorperazine 10 Mg/2 Ml Vial) 5 mg IV Q6HR PRN PRN Reason: Nausea Last Admin: 12/11/24 18:36 Dose: 5 mg Documented By: MS(2) Admin: 12/11/24 11:12 Dose: 5 mg Documented By: MS(2) Quetiapine Fumarate (Quetiapine 25 Mg Tablet) 25 mg PO BEDTIME [facility] Last Admin: 12/13/24 21:37 Dose: 25 mg Documented By: Admin: 12/12/24 20:14 Dose: 25 mg Documented By: MS Vital Signs Vital signs: Vital Signs - 8 hr 12/10/24 05:05 12/10/24 05:07 12/10/24 05:08 Temperature 97.9 F Pulse Rate 106 H 117 H 108 H Respiratory Rate 16 Blood Pressure 129/73 Pulse Oximetry 97 85 L 96 Oxygen Delivery Method Room Air 12/10/24 05:08 12/10/24 05:30 12/10/24 05:32 Temperature Pulse Rate 97 H 95 H Respiratory Rate 15 19 Blood Pressure 129/73 Pulse Oximetry 98 98 Oxygen Delivery Method 12/10/24 05:32 12/10/24 06:00 12/10/24 06:30 Temperature Pulse Rate 95 H 95 H Respiratory Rate 13 19 Blood Pressure 115/60 Pulse Oximetry 97 96 Oxygen Delivery Method 12/10/24 07:00 12/10/24 07:30 12/10/24 08:01 Temperature Pulse Rate 101 H 101 H 107 H Respiratory Rate 21 20 24 Blood Pressure Pulse Oximetry 94 98 95 Oxygen Delivery Method 12/10/24 08:01 12/10/24 08:30 12/10/24 08:30 Temperature Pulse Rate 104 H Respiratory Rate 15 Blood Pressure 117/56 L 119/66 Pulse Oximetry 96 Oxygen Delivery Method 12/10/24 09:00 12/10/24 09:00 Temperature Pulse Rate 108 H Respiratory Rate 17 Blood Pressure 111/65 Pulse Oximetry 96 Oxygen Delivery Method <Fauzia Olmedo, DO - Last Filed: 12/10/24 12:06> Orders Ordered: Discontinued Medications Acetaminophen (Acetaminophen 325 Mg Tablet) 975 mg PO Q8H PRN PRN Reason: Pain, Mild (1-3) Last Admin: 12/14/24 14:43 Dose: 975 mg Documented By: Admin: 12/14/24 02:00 Dose: 975 mg Documented By: CT Atorvastatin Calcium (Atorvastatin 20 Mg Tablet) 80 mg PO BEDTIME ANNA[facility]EL Last Admin: 12/13/24 21:37 Dose: 80 mg Documented By: Admin: 12/12/24 20:14 Dose: 80 mg Documented By: Benzocaine (Benzocaine/Menthol 1 Sameer Pkt) 1 each PO NOW ONE Stop: 12/10/24 16:31 Last Admin: 12/10/24 16:26 Dose: 1 each Documented By: LDV Benzocaine/Butamben/Tetracaine HCl (Tetracaine/Benzocaine/Butamben (Cetacaine) Bottle) 1 spray TOP NOW ONE Stop: 12/10/24 08:15 Last Admin: 12/10/24 08:37 Dose: 1 spray Documented By: RB Benzocaine/Butamben/Tetracaine HCl (Tetracaine/Benzocaine/Butamben (Cetacaine) Bottle) 1 spray TOP PRN PRN PRN Reason: Sore Throat Last Admin: 12/11/24 12:47 Dose: 1 spray Documented By: MS(2) Admin: 12/10/24 21:21 Dose: 1 spray Documented By: BROOK Dextrose (Dextrose 50 % In Water 25 Gm/50 Ml Syringe) 12.5 gm IV PRN PRN PRN Reason: Hypoglycemia Gabapentin (Gabapentin 100 Mg Capsule) 100 mg PO TID ANNA[facility]EL Last Admin: 12/14/24 09:06 Dose: 100 mg Documented By: Admin: 12/13/24 21:37 Dose: 100 mg Documented By: Admin: 12/13/24 15:58 Dose: 100 mg Documented By: Admin: 12/13/24 10:07 Dose: 100 mg Documented By: Admin: 12/12/24 20:14 Dose: 100 mg Documented By: Admin: 12/12/24 15:44 Dose: 100 mg Documented By: Admin: 12/12/24 09:30 Dose: Not Given Documented By: KATHRYN Heparin Sodium (Porcine) (Heparin 5,000 Unit/Ml Vial) 5,000 unit SUBCUT BID [facility]NA[facility] Last Admin: 12/14/24 09:06 Dose: 5,000 unit Documented By: Admin: 12/13/24 21:37 Dose: 5,000 unit Documented By: Admin: 12/13/24 10:07 Dose: 5,000 unit Documented By: Admin: 12/12/24 20:14 Dose: 5,000 unit Documented By: Admin: 12/12/24 09:14 Dose: 5,000 unit Documented By: Admin: 12/11/24 21:01 Dose: 5,000 unit Documented By: Admin: 12/11/24 09:07 Dose: 5,000 unit Documented By: (2) Admin: 12/10/24 21:22 Dose: 5,000 unit Documented By: BROOK Hydromorphone HCl (Hydromorphone 0.5 Mg Inj) 0.5 mg IV NOW ONE Stop: 12/10/24 07:32 Last Admin: 12/10/24 07:56 Dose: 0.5 mg Documented By: RB Hydromorphone HCl (Hydromorphone 0.5 Mg Inj) 0.5 mg IV Q2H PRN PRN Reason: Pain, Severe (7-10) Last Admin: 12/11/24 10:21 Dose: 0.5 mg Documented By: MS(2) Admin: 12/11/24 08:03 Dose: 0.5 mg Documented By: (2) Admin: 12/10/24 21:41 Dose: 0.5 mg Documented By: Admin: 12/10/24 12:48 Dose: 0.5 mg Documented By: LDV Hydromorphone HCl (Hydromorphone 0.5 Mg Inj) 1 mg IV Q2H PRN PRN Reason: Pain, Severe (7-10) Last Admin: 12/11/24 18:35 Dose: 1 mg Documented By: MS(2) Admin: 12/11/24 16:48 Dose: 1 mg Documented By: MS(2) Admin: 12/11/24 14:45 Dose: 1 mg Documented By: MS(2) Admin: 12/11/24 12:39 Dose: 1 mg Documented By: MS(2) Hydromorphone HCl (Hydromorphone 1 Mg Inj) 1 mg IV Q2H PRN PRN Reason: Pain, Severe (7-10) Last Admin: 12/12/24 20:15 Dose: 1 mg Documented By: MS Sodium Chloride (Normal Saline 0.9%) 1,000 mls @ 1,000 mls/hr IV BOLUS ONE Stop: 12/10/24 06:18 Last Infusion: 12/10/24 06:18 Dose: Infused Documented By: Admin: 12/10/24 05:23 Dose: 1,000 mls/hr Documented By: HNG Sodium Chloride (Normal Saline 0.9%) 1,000 mls @ 100 mls/hr IV CONT ANNABEL Last Admin: 12/10/24 07:57 Dose: 100 mls/hr Documented By: RB Lactated Ringer's (Lactated Ringers) 1,000 mls @ 100 mls/hr IV CONT ANNABEL Last Admin: 12/12/24 00:49 Dose: 100 mls/hr Documented By: Infusion: 12/12/24 00:49 Dose: Infused Documented By: Admin: 12/11/24 16:54 Dose: 100 mls/hr Documented By: MS(2) Infusion: 12/11/24 16:54 Dose: Infused Documented By: MS(2) Admin: 12/11/24 07:00 Dose: 100 mls/hr Documented By: Infusion: 12/11/24 07:00 Dose: Infused Documented By: Admin: 12/10/24 21:21 Dose: 100 mls/hr Documented By: Infusion: 12/10/24 21:21 Dose: Infused Documented By: Admin: 12/10/24 12:45 Dose: 100 mls/hr Documented By: LDV Acetaminophen (Ofirmev) 1,000 mg in 100 mls @ 400 mls/hr IV Q6H PRN PRN Reason: Fever/Mild Pain (1-3) Last Infusion: 12/11/24 20:48 Dose: Infused Documented By: Admin: 12/11/24 20:33 Dose: 400 mls/hr Documented By: Infusion: 12/11/24 15:19 Dose: Infused Documented By: MS(2) Admin: 12/11/24 14:46 Dose: 400 mls/hr Documented By: (2) Dextrose (D10w) 100 mls @ 1,200 mls/hr IV PRN PRN PRN Reason: Hypoglycemia Lactated Ringer's (Lactated Ringers) 500 mls @ 500 mls/hr IV BOLUS ONE Stop: 12/11/24 20:55 Last Infusion: 12/11/24 21:00 Dose: Infused Documented By: Admin: 12/11/24 19:56 Dose: 500 mls/hr Documented By: BROOK Acetaminophen (Ofirmev) 1,000 mg in 100 mls @ 400 mls/hr IV Q6H PRN PRN Reason: Fever/Mild Pain (1-3) Insulin Human Lispro (Insulin Lispro 100 Unit/Ml 3ml Vial) 0 unit SUBCUT Q6H [facility]NA[facility]; Protocol Last Admin: 12/12/24 14:30 Dose: Not Given Documented By: Admin: 12/12/24 08:30 Dose: 1 unit Documented By: KATHRYN Co-signed By: LINDA Admin: 12/12/24 02:30 Dose: Not Given Documented By: Admin: 12/11/24 21:01 Dose: Not Given Documented By: Admin: 12/11/24 15:19 Dose: Not Given Documented By: MS(2) Admin: 12/11/24 08:35 Dose: Not Given Documented By: MS(2) Admin: 12/11/24 04:58 Dose: Not Given Documented By: Admin: 12/10/24 21:22 Dose: Not Given Documented By: BROOK Insulin Human Lispro (Insulin Lispro 100 Unit/Ml 3ml Vial) 0 unit SUBCUT ACHS ANNA[facility]; Protocol Last Admin: 12/14/24 12:16 Dose: 1 unit Documented By: VINCENT Co-signed By: ALINA Admin: 12/14/24 08:07 Dose: Not Given Documented By: Admin: 12/13/24 21:38 Dose: Not Given Documented By: Admin: 12/13/24 16:46 Dose: 1 unit Documented By: KATHRYN Co-signed By: LINDA Admin: 12/13/24 12:00 Dose: Not Given Documented By: Admin: 12/13/24 07:45 Dose: Not Given Documented By: Admin: 12/12/24 21:10 Dose: Not Given Documented By: Admin: 12/12/24 18:09 Dose: 1 unit Documented By: KATHRYN Co-signed By: LINDA Lorazepam (Lorazepam 2 Mg/Ml Inj) 0.5 mg IV Q4HR PRN PRN Reason: Anxiety Last Admin: 12/11/24 08:03 Dose: 0.5 mg Documented By: MS(2) Admin: 12/11/24 02:52 Dose: 0.5 mg Documented By: Admin: 12/10/24 20:52 Dose: 0.5 mg Documented By: BROOK Lorazepam (Lorazepam 2 Mg/Ml Inj) 0.5 mg IV Q2HR PRN PRN Reason: Anxiety Last Admin: 12/12/24 20:14 Dose: 0.5 mg Documented By: Admin: 12/11/24 18:35 Dose: 0.5 mg Documented By: MS(2) Admin: 12/11/24 16:49 Dose: 0.5 mg Documented By: MS(2) Admin: 12/11/24 15:11 Dose: 0.5 mg Documented By: MS(2) Admin: 12/11/24 12:40 Dose: 0.5 mg Documented By: MS(2) Magnesium Chloride (Magnesium Chloride 64 Mg Tablet) 128 mg PO NOW ONE Stop: 12/14/24 11:51 Last Admin: 12/14/24 12:16 Dose: 128 mg Documented By: BT Naloxone HCl (Naloxone 0.4 Mg/Ml Vial) 0.2 mg IV Q2MIN PRN PRN Reason: Opiate Reversal Cyclosporine 0.05 % (Dropperette) 1 drop EYE-BOTH BID ANNABEL Last Admin: 12/14/24 09:06 Dose: Not Given Documented By: Admin: 12/13/24 21:38 Dose: Not Given Documented By: Admin: 12/13/24 10:01 Dose: Not Given Documented By: Admin: 12/12/24 20:17 Dose: Not Given Documented By: Admin: 12/12/24 10:00 Dose: Not Given Documented By: KATHRYN Ondansetron HCl (Ondansetron 4 Mg/2 Ml Inj) 4 mg IV NOW ONE Stop: 12/10/24 05:20 Last Admin: 12/10/24 05:24 Dose: 4 mg Documented By: KT Ondansetron HCl (Ondansetron 4 Mg/2 Ml Inj) 4 mg IV Q8HR PRN PRN Reason: Nausea And Vomiting Ondansetron HCl (Ondansetron 4 Mg/2 Ml Inj) 4 mg IV Q4HR PRN PRN Reason: nausea Last Admin: 12/11/24 16:49 Dose: 4 mg Documented By: MS(2) Admin: 12/11/24 12:43 Dose: 4 mg Documented By: MS(2) Admin: 12/11/24 09:07 Dose: 4 mg Documented By: MS(2) Pantoprazole Sodium (Pantoprazole 40 Mg Vial) 40 mg IV NOW ONE Stop: 12/10/24 07:32 Last Admin: 12/10/24 07:56 Dose: 40 mg Documented By: RB Pantoprazole Sodium (Pantoprazole 40 Mg Vial) 40 mg IV BID [facility] Last Admin: 12/12/24 09:14 Dose: 40 mg Documented By: Admin: 12/11/24 21:01 Dose: 40 mg Documented By: Admin: 12/11/24 08:03 Dose: 40 mg Documented By: MS(2) Admin: 12/10/24 21:22 Dose: 40 mg Documented By: BROOK Pantoprazole Sodium (Pantoprazole Dr 20 Mg Tablet) 20 mg PO DAILY [facility] Last Admin: 12/14/24 09:06 Dose: 20 mg Documented By: Admin: 12/13/24 10:07 Dose: 20 mg Documented By: Prochlorperazine (Prochlorperazine 10 Mg/2 Ml Vial) 5 mg IV Q6HR PRN PRN Reason: Nausea Last Admin: 12/11/24 18:36 Dose: 5 mg Documented By: MS(2) Admin: 12/11/24 11:12 Dose: 5 mg Documented By: MS(2) Quetiapine Fumarate (Quetiapine 25 Mg Tablet) 25 mg PO BEDTIME [facility] Last Admin: 12/13/24 21:37 Dose: 25 mg Documented By: Admin: 12/12/24 20:14 Dose: 25 mg Documented By: MS Vital Signs Vital signs: Vital Signs - 8 hr 12/10/24 05:05 12/10/24 05:07 12/10/24 05:08 Temperature 97.9 F Pulse Rate 106 H 117 H 108 H Respiratory Rate 16 Blood Pressure 129/73 Pulse Oximetry 97 85 L 96 Oxygen Delivery Method Room Air 12/10/24 05:08 12/10/24 05:30 12/10/24 05:32 Temperature Pulse Rate 97 H 95 H Respiratory Rate 15 19 Blood Pressure 129/73 Pulse Oximetry 98 98 Oxygen Delivery Method 12/10/24 05:32 12/10/24 06:00 12/10/24 06:30 Temperature Pulse Rate 95 H 95 H Respiratory Rate 13 19 Blood Pressure 115/60 Pulse Oximetry 97 96 Oxygen Delivery Method 12/10/24 07:00 12/10/24 07:30 12/10/24 08:01 Temperature Pulse Rate 101 H 101 H 107 H Respiratory Rate 21 20 24 Blood Pressure Pulse Oximetry 94 98 95 Oxygen Delivery Method 12/10/24 08:01 12/10/24 08:30 12/10/24 08:30 Temperature Pulse Rate 104 H Respiratory Rate 15 Blood Pressure 117/56 L 119/66 Pulse Oximetry 96 Oxygen Delivery Method 12/10/24 09:00 12/10/24 09:00 Temperature Pulse Rate 108 H Respiratory Rate 17 Blood Pressure 111/65 Pulse Oximetry 96 Oxygen Delivery Method MDM - Nausea/Vomiting/Diarrhea <Letha Davison, DO - Last Filed: 12/18/24 18:34> Lab Data 12/14/24 04:00 12/14/24 04:00 Labs: Lab Results 12/10/24 12/10/24 Range/Units 05:32 07:30 WBC 8.0 (4.5-11.0) X10^3/uL RBC 4.90 (4.0-5.2) X10^6/uL Hgb 15.1 (12.0-16.0) g/dL Hct 44.9 (36-46) % MCV 91.6 (80-100) fL MCH 30.7 (26-34) PG MCHC 33.6 (30-36) % RDW 14.7 (11.6-14.8) % Plt Count 296 (150-400) X10^3/uL Neut % (Auto) 77.0 H (50-75) % Lymph % (Auto) 12.0 L (25-40) % [place] % (Auto) 9.2 (3-14) % Eos % (Auto) 1.3 L (2-4) % Baso % (Auto) 0.5 (0-2) % Neut # (Auto) 6200 (0315-1828) /uL Lymph # (Auto) 1000 L (5958-6822) /uL [place] # (Auto) 700 (0-900) /uL Eos # (Auto) 100 (0-450) /uL Baso # (Auto) 0 (0-100) /uL Sodium 138 (137-145) mmol/L Potassium 4.4 (3.4-5.1) mmol/L Chloride 100 (98-107) mmol/L Carbon Dioxide 28 (22-32) mmol/L BUN 44 H (7-17) mg/dL Creatinine 0.99 (0.52-1.04) mg/dL Estimated GFR 60 (>60) mL/min BUN/Creatinine Ratio 44.4 H (6-22) Glucose 153 H (80-110) mg/dL Lactate 1.4 (0.7-2.1) mmol/L Calcium 10.2 (8.4-10.2) mg/dL Total Bilirubin 1.2 (0.2-1.3) mg/dL AST 32 (14-36) IU/L ALT 28 (<35) IU/L Alkaline Phosphatase 90 (38-126) U/L Total Protein 7.3 (6.3-8.2) g/dL Albumin 4.4 (3.5-5.0) g/dL Globulin 2.9 (1.7-4.1) g/dL Albumin/Globulin Ratio 1.5 (1.0-2.8) Lipase 56 (23-300) U/L [facility] Narrative Medical decision making narrative: 74-year-old female complaint of nausea and vomiting for the past 4 days had diarrhea initially states very minimal output since. Has pain on palpation of the left lower quadrant does have prior histories of small bowel obstructions states this does feel similar. Patient presents today because she says she has not been able take her medications for the past 2 days. Patient received Zofran and fluids Dr. Olmedo-patient signed out to me by Dr. Davison I have seen evaluated patient myself. She does have some left lower quadrant pain but overall appears well and nontoxic. She has not actively vomiting denies any nausea. Blood work reviewed WBC is 8.0, lactate 1 point Electrolytes within normal limits, no AMADEO CT does show small bowel obstruction with mid jejunum in left abdomen Initially case discussed with Dr. Frost placing NG tube and will talk to surgery 0900 DR. Askew updated patient's symptoms test results agrees with NG happy to consult and agrees with admission to medicine Dr. Frost accepts and updated on surgery plan <Fauzia Olmedo DO - Last Filed: 12/10/24 12:06> Lab Data Labs: Lab Results 12/10/24 12/10/24 Range/Units 05:32 07:30 WBC 8.0 (4.5-11.0) X10^3/uL RBC 4.90 (4.0-5.2) X10^6/uL Hgb 15.1 (12.0-16.0) g/dL Hct 44.9 (36-46) % MCV 91.6 (80-100) fL MCH 30.7 (26-34) PG MCHC 33.6 (30-36) % RDW 14.7 (11.6-14.8) % Plt Count 296 (150-400) X10^3/uL Neut % (Auto) 77.0 H (50-75) % Lymph % (Auto) 12.0 L (25-40) % [place] % (Auto) 9.2 (3-14) % Eos % (Auto) 1.3 L (2-4) % Baso % (Auto) 0.5 (0-2) % Neut # (Auto) 6200 (2358-6638) /uL Lymph # (Auto) 1000 L (8378-9824) /uL [place] # (Auto) 700 (0-900) /uL Eos # (Auto) 100 (0-450) /uL Baso # (Auto) 0 (0-100) /uL Sodium 138 (137-145) mmol/L Potassium 4.4 (3.4-5.1) mmol/L Chloride 100 (98-107) mmol/L Carbon Dioxide 28 (22-32) mmol/L BUN 44 H (7-17) mg/dL Creatinine 0.99 (0.52-1.04) mg/dL Estimated GFR 60 (>60) mL/min BUN/Creatinine Ratio 44.4 H (6-22) Glucose 153 H (80-110) mg/dL Lactate 1.4 (0.7-2.1) mmol/L Calcium 10.2 (8.4-10.2) mg/dL Total Bilirubin 1.2 (0.2-1.3) mg/dL AST 32 (14-36) IU/L ALT 28 (<35) IU/L Alkaline Phosphatase 90 (38-126) U/L Total Protein 7.3 (6.3-8.2) g/dL Albumin 4.4 (3.5-5.0) g/dL Globulin 2.9 (1.7-4.1) g/dL Albumin/Globulin Ratio 1.5 (1.0-2.8) Lipase 56 (23-300) U/L Imaging Data CT scan - abdomen/pelvis: Radiologist's Impression: Preliminary report of CT most characteristic of small-bowel obstruction within the mid jejunum in left abdomen as described above. Surgical consultation suggested Presumed mesh ventral hernia repair is seen at the level of the umbilicus extending inferiorly. Mild induration with an anterior subcutaneous fat without discrete fluid collection to suggest abscess Postsurgical change of the rectosigmoid junction scattered diverticula within the colon without findings of diverticulitis. No abnormal colonic dilatation is seen Distal small bowel is decompressed MDM Narrative Medical decision making narrative: 74-year-old female complaint of nausea and vomiting for the past 4 days had diarrhea initially states very minimal output since. Has pain on palpation of the left lower quadrant does have prior histories of small bowel obstructions states this does feel similar. Patient presents today because she says she has not been able take her medications for the past [address] abdomen pelvis Patient received Zofran and fluids Dr. Olmedo-patient signed out to me by Dr. Davison I have seen evaluated patient myself. She does have some left lower quadrant pain but overall appears well and nontoxic. She has not actively vomiting denies any nausea. Blood work reviewed WBC is 8.0, lactate 1 point Electrolytes within normal limits, no AMADEO CT does show small bowel obstruction with mid jejunum in left abdomen Initially case discussed with Dr. Frost placing NG tube and will talk to surgery 0900 DR. Askew updated patient's symptoms test results agrees with JELLY rosario to consult and agrees with admission to medicine Dr. Frost accepts and updated on surgery plan Discharge Plan Departure Patient Disposition: Admitted As Inpatient Clinical Impression: Small bowel obstruction Admit Date/Time: 12/10/24 09:25 Admit Provider: Ganesh Unger
[2024-12-10 05:51] LABS: Alanine Aminotransferase 28 IU/L (<35); Albumin 4.4 g/dL (3.5-5.0); Albumin Globulin Ratio 1.5 (1.0-2.8); Alkaline Phosphatase 90 U/L (38-126); Aspartate Aminotransferase 32 IU/L (14-36); BUN Creatinine Ratio 44.4 (6-22); Bilirubin Total 1.2 mg/dL (0.2-1.3); Blood Urea Nitrogen 44 mg/dL (7-17); Calcium 10.2 mg/dL (8.4-10.2); Carbon Dioxide 28 mmol/L (22-32); Chloride 100 mmol/L (98-107); Estimated Glomerular Filt Rate 60 mL/min (>60); Globulin 2.9 g/dL (1.7-4.1); Glucose 153 mg/dL (80-110); HEMOLYSIS < 15 (0-50); Lipase 56 U/L (23-300); Potassium 4.4 mmol/L (3.4-5.1); Sodium 138 mmol/L (137-145); Total Protein 7.3 g/dL (6.3-8.2)
[2024-12-10] MEDS: HYDROMORPHONE 0.5 MG INJ IV ×3 (07:56→21:41)
[2024-12-10] MEDS: PANTOPRAZOLE 40 MG VIAL IV ×2 (07:56→21:22)
[2024-12-10] MEDS: SODIUM CHLORIDE 0.9% 1,000 ML 100 ML IV (07:57)
[2024-12-10 08:16] LABS: Lactate (Lactic Acid) 1.4 mmol/L (0.7-2.1)
--- NOTE | 2024-12-10 08:32 | DI.RAD.S_ITS ---
PROCEDURE: XR CHEST 1V INDICATIONS: NG tube placement confirmation TECHNIQUE: One view of the chest was acquired. COMPARISON: None. FINDINGS: Surgical changes and devices: Nasogastric tube is in place. Distal tip and side port projects in the left upper quadrant most likely within the stomach. Lungs and pleura: Lungs are clear. No pleural effusions or pneumothorax. Mediastinum: Mediastinal contours appear normal. Heart size is normal. Bones and chest wall: No suspicious bony lesions. Overlying soft tissues appear unremarkable. IMPRESSION: No acute cardiopulmonary abnormality is seen. Nasogastric tube is in place and appears appropriately position. Dictated by: Abrahan Stroud M.D. on 12/10/2024 at 9:30 Approved by: Abrahan Stroud M.D. on 12/10/2024 at 9:31
[2024-12-10] MEDS: TETRACAINE/BENZOCAINE/BUTAMBEN (CETACAINE) BOTTLE 1 SPRAY TOP ×2 (08:37→21:21)
--- NOTE | 2024-12-10 09:04 | PC.NURSE ---
ED provider connected patient to suction intermittently affirming tube placement herself.
--- NOTE | 2024-12-10 09:30 | PM.CN.IH.1 ---
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 She resolved with conservative management after Gastrografin challenge last time. She does not have tachycardia, no leukocytosis. She has some pain in the region of the small bowel fecalization the left side of her abdomen. Meds Home Medications and Allergies Home Medications Medication Instructions Recorded Confirmed Type cholecalciferol (vitamin D3) 125 10,000 unit PO DAILY ##0 07/08/10 06/02/24 History mcg (5,000 unit) tablet (Vitamin D3) losartan 25 mg tablet 50 mg PO BID ##0 04/27/11 06/02/24 History omega-3 360 mg-dha 144 mg-epa 216 2 cap PO BID ##0 04/27/11 06/02/24 History mg-fish oil 1,200 mg capsule,del rel (Fish Oil) atorvastatin 20 mg tablet 20 mg PO BEDTIME 09/28/19 06/02/24 History naproxen sodium 220 mg capsule 220 mg PO BID 09/28/19 06/02/24 History (Aleve) dulaglutide 1.5 mg/0.5 mL 1.5 mg SUBCUT WEEKLY 06/09/22 06/05/24 History subcutaneous pen injector (Trulicity) metformin 500 mg tablet 500 mg PO DAILY 06/09/22 06/02/24 History acetaminophen 1,000 mg PO DAILY PRN Pain (Scale 06/17/22 06/05/24 History Score 1-3) omeprazole 20 mg capsule,delayed 20 mg PO BID #14 caps 06/06/24 06/02/24 Rx release Allergies Allergy/AdvReac Type Severity Reaction Status Date / Time Sulfa (Sulfonamide Allergy Severe ITCHING Verified 06/17/22 06:42 Antibiotics) ascorbic acid Allergy Intermediate Rash Verified 06/17/22 06:42 citalopram [From Celexa] Allergy Pt does Verified 06/17/22 06:42 not remember reaction doxycycline Allergy Pt does Verified 06/17/22 06:42 not remember reaction escitalopram [From Lexapro] Allergy Pt does Verified 06/17/22 06:42 not remember reaction lisinopril Allergy Pt does Verified 06/17/22 06:42 not remember reaction meloxicam [From Mobic] Allergy Pt does Verified 06/17/22 06:42 not remember reaction metronidazole [From Flagyl] Allergy Pt does Verified 06/17/22 06:42 not remember reaction montelukast [From Singulair] Allergy Pt does Verified 06/17/22 06:42 not remember reaction piroxicam [From Feldene] Allergy Pt does Verified 06/17/22 06:42 not remember reaction sulfamethoxazole Allergy Pt does Verified 06/17/22 06:42 [From Septra] not remember reaction sulfur dioxide Allergy Pt does Verified 06/17/22 06:42 not remember reaction trimethoprim [From Septra] Allergy Pt does Verified 06/17/22 06:42 not remember reaction Influenza Virus Vaccines AdvReac Severe Hives Verified 06/17/22 06:42 oxycodone [From Percocet] AdvReac Severe Hallucinati Verified 06/17/22 06:42 ng propoxyphene AdvReac Severe Hallucinati Verified 06/17/22 06:42 [From Darvocet-N] ng codeine AdvReac Pt unsure, Verified 06/17/22 06:42 thinks possibly nausea Review of Systems Review of Systems ROS: Yes All systems reviewed with the patient and are negative except as otherwise documented Exam Vital Signs (past 8 hours): - 12/10/24 05:05 12/10/24 05:07 12/10/24 05:08 Temperature 97.9 F Pulse Rate 106 H 117 H 108 H Respiratory Rate 16 Blood Pressure 129/73 Pulse Oximetry 97 85 L 96 Oxygen Delivery Method Room Air 12/10/24 05:08 12/10/24 05:30 12/10/24 05:32 Temperature Pulse Rate 97 H 95 H Respiratory Rate 15 19 Blood Pressure 129/73 Pulse Oximetry 98 98 Oxygen Delivery Method 12/10/24 05:32 12/10/24 06:00 12/10/24 06:30 Temperature Pulse Rate 95 H 95 H Respiratory Rate 13 19 Blood Pressure 115/60 Pulse Oximetry 97 96 Oxygen Delivery Method 12/10/24 07:00 12/10/24 07:30 12/10/24 08:01 Temperature Pulse Rate 101 H 101 H 107 H Respiratory Rate 21 20 24 Blood Pressure Pulse Oximetry 94 98 95 Oxygen Delivery Method 12/10/24 08:01 12/10/24 08:30 12/10/24 08:30 Temperature Pulse Rate 104 H Respiratory Rate 15 Blood Pressure 117/56 L 119/66 Pulse Oximetry 96 Oxygen Delivery Method 12/10/24 09:00 12/10/24 09:00 Temperature Pulse Rate 108 H Respiratory Rate 17 Blood Pressure 111/65 Pulse Oximetry 96 Oxygen Delivery Method Oxygen Delivery Method Room Air Narrative Exam Narrative: Gen: NAD, sitting comfortably in bed, appears well HEENT: Sclera are anicteric, head is normocephalic and atraumatic, trachea is midline. CV: RRR, no JVD Resp: clear to auscultation bilaterally, equal chest wall movement bilaterally Abd: soft, minimally tender left abdomen, normoactive bowel sounds Ext: no edema, full range of motion Neuro: Cranial nerves II-XII grossly intact, no focal deficits Skin: No erythema or ecchymosis Objective Labs 12/10/24 05:32 12/10/24 05:32 Labs: Laboratory Results - last 24 hr 12/10/24 12/10/24 05:32 07:30 WBC 8.0 RBC 4.90 Hgb 15.1 Hct 44.9 MCV 91.6 MCH 30.7 MCHC 33.6 RDW 14.7 Plt Count 296 Neut % (Auto) 77.0 H Lymph % (Auto) 12.0 L [place] % (Auto) 9.2 Eos % (Auto) 1.3 L Baso % (Auto) 0.5 Neut # (Auto) 6200 Lymph # (Auto) 1000 L [place] # (Auto) 700 Eos # (Auto) 100 Baso # (Auto) 0 Sodium 138 Potassium 4.4 Chloride 100 Carbon Dioxide 28 BUN 44 H Creatinine 0.99 Estimated GFR 60 BUN/Creatinine Ratio 44.4 H Glucose 153 H Lactate 1.4 Calcium 10.2 Total Bilirubin 1.2 AST 32 ALT 28 Alkaline Phosphatase 90 Total Protein 7.3 Albumin 4.4 Globulin 2.9 Albumin/Globulin Ratio 1.5 Lipase 56 [facility] Medical History GERD (gastroesophageal reflux disease) Osteoarthritis Low back pain Right shoulder pain History of prosthetic unicompartmental arthroplasty of left knee Small bowel obstruction (~2009) HLD (hyperlipidemia) HTN (hypertension) Pneumonia (~1973) Abdominal hernia Surgical History Status post left 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) H/O shoulder surgery Hx of tonsillectomy Hx of varicose vein stripping History of bilateral tubal ligation (~1984) Hx of cholecystectomy (~1977) Hx of appendectomy History of hernia repair Hx of colectomy (~2003) H/O medial meniscus repair of right knee (2007) H/O gastric bypass (~1979) Social History household members: other Tobacco & Substance Use Smoking Status: Never smoker alcohol intake: former Assessment & Plan Assessment and plan (1) SBO (small bowel obstruction): Status: Acute (2) History of bariatric surgery: Status: Acute Plan Plan nasogastric tube decompression with Gastrografin challenge. No indications for surgery presently. Previous successful conservative management. Time-Based Coding :: [TOTAL MINUTES] spent with patient and on the chart (including review of chart, obtaining history, exam, reviewing outside data, placing orders, documenting exam and treatment plan, and counseling patient) on [DATE]. PROFEE Charge Codes Inpatient or Observation consultation: 50882
--- NOTE | 2024-12-10 11:33 | P.HP_ITS ---
History of Present Illness History of Present Illness Date Patient Seen: 12/10/24 Time Patient Seen: 11:40 Chief complaint: vomiting Narrative: 74-year-old woman under the primary care of ELISABETH Lovell, reports 4 days of nausea and vomiting, initially with diarrhea but no stool output in the last 3 days and not passing flatus. She has history of prior small bowel obstruction and gastric stapling bariatric surgery, hospitalized at this hospital in May and treated with Gastrografin enema, resolving spontaneously. She states in July she had a stroke, which he was found outside by her 10 and make it and hypothermic at 90? F and admitted to [facility], and subsequently discharged to rehabilitation. She states she has no neurologic deficits. 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 ?I do not have time for this?. She denies chest pain, shortness for breath, lateralizing weakness, paresthesias, or stroke symptoms. 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) Hx of appendectomy Hx of cholecystectomy (~1977) Hx of colectomy (~2003) Hx of tonsillectomy Hx of varicose vein stripping Status post left unicompartmental knee replacement Social History household members: other Smoking Status: Never smoker alcohol intake: former Meds Home Medications and Allergies Home Medications Medication Instructions Recorded Confirmed Type cholecalciferol (vitamin D3) 125 10,000 unit PO DAILY ##0 07/08/10 06/02/24 History mcg (5,000 unit) tablet (Vitamin D3) losartan 25 mg tablet 50 mg PO BID ##0 04/27/11 06/02/24 History omega-3 360 mg-dha 144 mg-epa 216 2 cap PO BID ##0 04/27/11 06/02/24 History mg-fish oil 1,200 mg capsule,del rel (Fish Oil) atorvastatin 20 mg tablet 20 mg PO BEDTIME 09/28/19 06/02/24 History naproxen sodium 220 mg capsule 220 mg PO BID 09/28/19 06/02/24 History (Aleve) dulaglutide 1.5 mg/0.5 mL 1.5 mg SUBCUT WEEKLY 06/09/22 06/05/24 History subcutaneous pen injector (Trulicity) metformin 500 mg tablet 500 mg PO DAILY 06/09/22 06/02/24 History acetaminophen 1,000 mg PO DAILY PRN Pain (Scale 06/17/22 06/05/24 History Score 1-3) omeprazole 20 mg capsule,delayed 20 mg PO BID #14 caps 06/06/24 06/02/24 Rx release Allergies Allergy/AdvReac Type Severity Reaction Status Date / Time Sulfa (Sulfonamide Allergy Severe ITCHING Verified 06/17/22 06:42 Antibiotics) ascorbic acid Allergy Intermediate Rash Verified 06/17/22 06:42 citalopram [From Celexa] Allergy Pt does Verified 06/17/22 06:42 not remember reaction doxycycline Allergy Pt does Verified 06/17/22 06:42 not remember reaction escitalopram [From Lexapro] Allergy Pt does Verified 06/17/22 06:42 not remember reaction lisinopril Allergy Pt does Verified 06/17/22 06:42 not remember reaction meloxicam [From Mobic] Allergy Pt does Verified 06/17/22 06:42 not remember reaction metronidazole [From Flagyl] Allergy Pt does Verified 06/17/22 06:42 not remember reaction montelukast [From Singulair] Allergy Pt does Verified 06/17/22 06:42 not remember reaction piroxicam [From Feldene] Allergy Pt does Verified 06/17/22 06:42 not remember reaction sulfamethoxazole Allergy Pt does Verified 06/17/22 06:42 [From Septra] not remember reaction sulfur dioxide Allergy Pt does Verified 06/17/22 06:42 not remember reaction trimethoprim [From Septra] Allergy Pt does Verified 06/17/22 06:42 not remember reaction Influenza Virus Vaccines AdvReac Severe Hives Verified 06/17/22 06:42 oxycodone [From Percocet] AdvReac Severe Hallucinati Verified 06/17/22 06:42 ng propoxyphene AdvReac Severe Hallucinati Verified 06/17/22 06:42 [From Darvocet-N] ng codeine AdvReac Pt unsure, Verified 06/17/22 06:42 thinks possibly nausea Review of Systems Review of Systems ROS: Yes All systems reviewed with the patient and are negative except as otherwise documented Exam Vital Signs (past 8 hours): - 12/10/24 05:05 12/10/24 05:07 12/10/24 05:08 Temperature 97.9 F Pulse Rate 106 H 117 H 108 H Respiratory Rate 16 Blood Pressure 129/73 Pulse Oximetry 97 85 L 96 Oxygen Delivery Method Room Air 12/10/24 05:08 12/10/24 05:30 12/10/24 05:32 Temperature Pulse Rate 97 H 95 H Respiratory Rate 15 19 Blood Pressure 129/73 Pulse Oximetry 98 98 Oxygen Delivery Method 12/10/24 05:32 12/10/24 06:00 12/10/24 06:30 Temperature Pulse Rate 95 H 95 H Respiratory Rate 13 19 Blood Pressure 115/60 Pulse Oximetry 97 96 Oxygen Delivery Method 12/10/24 07:00 12/10/24 07:30 12/10/24 08:01 Temperature Pulse Rate 101 H 101 H 107 H Respiratory Rate 21 20 24 Blood Pressure Pulse Oximetry 94 98 95 Oxygen Delivery Method 12/10/24 08:01 12/10/24 08:30 12/10/24 08:30 Temperature Pulse Rate 104 H Respiratory Rate 15 Blood Pressure 117/56 L 119/66 Pulse Oximetry 96 Oxygen Delivery Method 12/10/24 09:00 12/10/24 09:00 12/10/24 09:30 Temperature Pulse Rate 108 H 103 H Respiratory Rate 17 17 Blood Pressure 111/65 Pulse Oximetry 96 94 Oxygen Delivery Method 12/10/24 09:30 12/10/24 10:00 12/10/24 10:00 Temperature Pulse Rate 102 H Respiratory Rate 16 Blood Pressure 124/61 110/63 Pulse Oximetry 91 Oxygen Delivery Method Oxygen Delivery Method Room Air Narrative Exam Narrative: GENERAL: This is a well-nourished, well-developed patient, in no apparent distress, nasogastric tube in place. HEAD: Atraumatic. Normocephalic. No temporal or scalp tenderness. EYES: Pupils equal round and reactive. Extraocular motions intact. No scleral icterus. No injection or drainage. ENT: Mucous membranes pink and moist. NECK: Trachea midline. No JVD, bruits or lymphadenopathy. Supple, nontender, no meningeal signs. CARDIOVASCULAR: Regular rate and rhythm without murmurs, gallops, or rubs. RESPIRATORY: Clear to auscultation. GASTROINTESTINAL: Abdomen soft, absent bowel tones, distended, mild diffuse tenderness, no guarding, rebound or rigidity.. EXTREMITIES: No clubbing, cyanosis, or edema. BACK: Nontender without deformity or crepitance. No flank tenderness. NEUROLOGIC: Alert, oriented, speech fluent, full upper and lower motor strength, no focal deficits evident. DERMATOLOGIC: No rashes or skin lesions. Objective Imaging Chest x-ray: Radiologist's impression: No acute cardiopulmonary abnormality is seen. Nasogastric tube is in place and appears appropriately position. CT scan - abdomen: Radiologist's impression: Small-bowel obstruction, with a transition point within the left lower quadrant. Anterior abdominal wall postoperative change, with irregular mesh. Additional findings: Postoperative change of the stomach Fatty liver infiltration Cholecystectomy Nonobstructing left-sided kidney stone Rectosigmoid postoperative change Diverticulosis, without active diverticulitis Sterilization clips Likely left Bartholin's gland cyst, similar to prior Labs 12/10/24 05:32 12/10/24 05:32 Labs: Laboratory Results - last 24 hr 12/10/24 12/10/24 05:32 07:30 WBC 8.0 RBC 4.90 Hgb 15.1 Hct 44.9 MCV 91.6 MCH 30.7 MCHC 33.6 RDW 14.7 Plt Count 296 Neut % (Auto) 77.0 H Lymph % (Auto) 12.0 L [place] % (Auto) 9.2 Eos % (Auto) 1.3 L Baso % (Auto) 0.5 Neut # (Auto) 6200 Lymph # (Auto) 1000 L [place] # (Auto) 700 Eos # (Auto) 100 Baso # (Auto) 0 Sodium 138 Potassium 4.4 Chloride 100 Carbon Dioxide 28 BUN 44 H Creatinine 0.99 Estimated GFR 60 BUN/Creatinine Ratio 44.4 H Glucose 153 H Lactate 1.4 Calcium 10.2 Total Bilirubin 1.2 AST 32 ALT 28 Alkaline Phosphatase 90 Total Protein 7.3 Albumin 4.4 Globulin 2.9 Albumin/Globulin Ratio 1.5 Lipase 56 Assessment & Plan Assessment & Plan narrative: 1. Partial small bowel obstruction. NG tube, IV fluids, Gastrografin challenge for surgery. 2. History of possible TIA stroke July 2024. Restart medications when able. 3. History of multiple abdominal surgeries. 4. Diabetes mellitus, type 2. Hold Trulicity and metformin and resume when taking orals. Sliding scale insulin coverage 5. Hypertension. Hold losartan and resume when taking orals. 6. Hyperlipidemia. Hold atorvastatin and resume when taking orals 7. DVT prophylaxis: SCDs, SQ heparin 8. Code status: Do not resuscitate. She clearly states that she would not wish cardiopulmonary resuscitation in the event cardiopulmonary arrest. Her brother is her surrogate decision maker. Plan: -observation -NPO -IV fluids -PPI BID -monitor clinically -SQ heparin -surgery following Quality MIPS - Admit I confirm the patient?s Advance Care Plan is present, Code status is documented, Surrogate decision maker is in patient?s record [If Yes, STOP here]: Yes [facility] - Meds 'Current medications' to include all prescriptions, [id number] products, herbals, cannabis/cannabidiol products, and vitamin/mineral/dietary (nutritional) supplements. I have utilized all available resources to obtain, update, or review the patient?s current medications. [If Yes, STOP here]: Yes PROFEE Associate Artistic Director Document charge(s): No Charge Codes Initial inpatient/observation care: [id number]
[2024-12-10] MEDS: LACTATED RINGERS 1,000 ML 100 ML IV ×2 (12:45→21:21)
[2024-12-10] MEDS: BENZOCAINE/MENTHOL 1 LOZ PKT 1 EACH PO (16:26)
[2024-12-10] MEDS: LORazepam 2 MG/ML INJ 0.5 MG IV (20:52)
[2024-12-10] MEDS: HEPARIN 5,000 UNIT/ML VIAL 5000 UNIT SUBCUT (21:22)
[2024-12-11] VITALS (9 sets, daily range): BP systolic 106–136; BP diastolic 55–88; PULSE 68–139; RESP 17–19; TEMP 36–38.1; O2SAT 93–96
[2024-12-11] MEDS: LORazepam 2 MG/ML INJ 0.5 MG IV ×6 (02:52→18:35)
--- NOTE | 2024-12-11 03:10 | DI.RAD.S_ITS ---
PROCEDURE: XR CHEST 1V INDICATIONS: Confirm NGT placement TECHNIQUE: One view of the chest was acquired. COMPARISON: [facility], CR, XR CHEST 1V, 12/10/2024, 8:30. FINDINGS: Surgical changes and devices: Enteric tube coursing into the stomach. The side port is in the region of the gastroesophageal junction. Cholecystectomy clips. Lungs and pleura: Minimal hazy opacity at the left lung base. No pleural effusions or pneumothorax. Mediastinum: Mediastinal contours appear normal. Heart size is normal. Bones and chest wall: No suspicious bony lesions. Overlying soft tissues appear unremarkable. IMPRESSION: Enteric tube coursing into the stomach. The side port is in the region of the gastroesophageal junction. -Recommend advancing several centimeters for more optimal positioning. Minimal hazy opacity at the left lung base. Favor atelectasis over pneumonia. This report is concordant with the overnight preliminary interpretation. Dictated by: Tim Hanks M.D. on 12/11/2024 at 7:53 Approved by: Tim Hanks M.D. on 12/11/2024 at 7:55
--- NOTE | 2024-12-11 06:00 | DI.RAD.S_ITS ---
PROCEDURE: XR GASTROGRAFIN CHALLENGE COMPARISON: [facility], CT, CT ABDOMEN PELVIS W CON, 12/10/2024, 6:23. [facility], CR, XR GASTROGRAFIN CHALLENGE, 06/03/2024, 20:39. INDICATIONS: SBO FINDINGS: Supine images of the abdomen obtained 4 hours after oral contrast administration demonstrate opacification of the stomach and small bowel, as well as the proximal ascending colon. The small bowel loops are dilated up to a 5.3 cm. There is an enteric tube with the tip in the proximal stomach, although the side port is at the gastroesophageal junction. The stomach is also mildly dilated. IMPRESSION: 1. Partial small-bowel obstruction with opacification of the proximal ascending colon. 2. Enteric tube tip side port at the gastroesophageal junction. Further advancement by 15-20 cm recommended. Dictated by: Elio Bolivar M.D. on 12/11/2024 at 20:16 Approved by: Elio Bolivar M.D. on 12/11/2024 at 20:19
--- NOTE | 2024-12-11 06:52 | PC.NURSE ---
NGT accidentally pulled out by patient, ordered to replace per MD. NGT placed, CXR confirmed placement, connected to LIS.
[2024-12-11] MEDS: LACTATED RINGERS 1,000 ML 100 ML IV ×2 (07:00→16:54)
[2024-12-11 07:02] LABS: Add Manual Diff / Slide Review NO; Basophils Absolute Auto 0 /uL (0-100); Basophils Percent Auto 0.4 % (0-2); Eosinophils Absolute Auto 100 /uL (0-450); Eosinophils Percent Auto 1.8 % (2-4); Hematocrit 39.3 % (36-46); Hemoglobin 13.1 g/dL (12.0-16.0); Lymphocytes Absolute Auto 900 /uL (1100-4500); Lymphocytes Percent Auto 20.4 % (25-40); Mean Corpuscular HGB Conc 33.4 % (30-36); Mean Corpuscular Hemoglobin 30.6 PG (26-34); Mean Corpuscular Volume 91.7 fL (80-100); Monocytes Absolute Auto 400 /uL (0-900); Monocytes Percent Auto 9.9 % (3-14); Neutrophils Absolute Auto 2800 /uL (1500-7000); Neutrophils Percent Auto 67.5 % (50-75); Platelet Count 225 X10^3/uL (150-400); Red Blood Cell Count 4.29 X10^6/uL (4.0-5.2); Red Cell Distribution Width 14.6 % (11.6-14.8); White Blood Cell Count 4.2 X10^3/uL (4.5-11.0)
[2024-12-11 07:13] LABS: BUN Creatinine Ratio 41.6 (6-22); Blood Urea Nitrogen 32 mg/dL (7-17); Calcium 9.4 mg/dL (8.4-10.2); Carbon Dioxide 26 mmol/L (22-32); Chloride 104 mmol/L (98-107); Estimated Glomerular Filt Rate > 60 mL/min (>60); Glucose 120 mg/dL (80-110); HEMOLYSIS < 15 (0-50); Sodium 138 mmol/L (137-145)
--- NOTE | 2024-12-11 07:56 | P.PN_ITS ---
Subjective Subjective Interval history: Summary: 74-year-old woman under the primary care of ELISABETH Lovell, reports 4 days of nausea and vomiting, initially with diarrhea but no stool output in the last 3 days and not passing flatus. She has history of prior small bowel obstruction and gastric stapling bariatric surgery, hospitalized at this hospital in May and treated with Gastrografin enema, resolving spontaneously. She states in July she had a stroke, which he was found outside by her 10 and make it and hypothermic at 90? F and admitted to [facility], and subsequently discharged to rehabilitation. She states she has no neurologic deficits. 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 ?I do not have time for this?. She denies chest pain, shortness for breath, lateralizing weakness, paresthesias, or stroke symptoms. S: Some nausea overnight. Less pain now and less distention. Was given Gastrografin. No flatus. Exam Vital Signs (past 8 hours): - 12/11/24 00:00 12/11/24 04:00 Temperature 96.8 F L 96.8 F L Pulse Rate 101 H 102 H Respiratory Rate 17 19 Blood Pressure 106/64 125/65 Pulse Oximetry 96 93 Oxygen Flow Rate 0 0 Oxygen Delivery Method Room Air Oxygen Flow Rate 0 Narrative Exam Narrative: NAD, alert and oriented. Fluent speech. Lungs are clear, normal rate and effort. Heart is regular, no murmur gallop or rub. Abdomen is distended and hypertympanic, but soft. The umbilicus is nontender (hernia). Extremities are free of edema. Objective Imaging Multiple studies:: Radiologist's impression: Chest x-ray: Radiologist's impression: No acute cardiopulmonary abnormality is seen. Nasogastric tube is in place and appears appropriately position. CT scan - abdomen: Radiologist's impression: Small-bowel obstruction, with a transition point within the left lower quadrant. Anterior abdominal wall postoperative change, with irregular mesh. Additional findings: Postoperative change of the stomach Fatty liver infiltration Cholecystectomy Nonobstructing left-sided kidney stone Rectosigmoid postoperative change Diverticulosis, without active diverticulitis Sterilization clips Likely left Bartholin's gland cyst, similar to prior Labs 12/11/24 05:30 12/11/24 05:30 Labs: Laboratory Results - last 24 hr 12/10/24 12/11/24 07:30 05:30 WBC 4.2 L RBC 4.29 Hgb 13.1 Hct 39.3 MCV 91.7 MCH 30.6 MCHC 33.4 RDW 14.6 Plt Count 225 Neut % (Auto) 67.5 Lymph % (Auto) 20.4 L [place] % (Auto) 9.9 Eos % (Auto) 1.8 L Baso % (Auto) 0.4 Neut # (Auto) 2800 Lymph # (Auto) 900 L [place] # (Auto) 400 Eos # (Auto) 100 Baso # (Auto) 0 Sodium 138 Potassium 4.0 Chloride 104 Carbon Dioxide 26 BUN 32 H Creatinine 0.77 Estimated GFR > 60 BUN/Creatinine Ratio 41.6 H Glucose 120 H Lactate 1.4 Calcium 9.4 PFSH Medical History GERD (gastroesophageal reflux disease) Osteoarthritis Low back pain Right shoulder pain History of prosthetic unicompartmental arthroplasty of left knee Small bowel obstruction (~2009) HLD (hyperlipidemia) HTN (hypertension) Pneumonia (~1973) Abdominal hernia Surgical History Status post left 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 Partial small bowel obstruction. NG tube, IV fluids, Gastrografin challenge per surgery. 2. History of possible TIA stroke July 2024. Restart medications when able. 3. History of multiple abdominal surgeries. 4. Diabetes mellitus, type 2. Hold Trulicity and metformin and resume when taking orals. Sliding scale insulin coverage 5. Hypertension. Hold losartan and resume when taking orals. 6. Hyperlipidemia. Hold atorvastatin and resume when taking orals 7. DVT prophylaxis: SCDs, SQ heparin 8. Code status: Do not resuscitate. She clearly states that she would not wish cardiopulmonary resuscitation in the event cardiopulmonary arrest. Her brother is her surrogate decision maker. Plan: -observation -NPO -IV fluids -PPI BID -monitor clinically -SQ heparin -surgery following -Gastrografin challenge now. HUEY: 12/13. Time-Based Coding :: [TOTAL MINUTES] spent with patient and on the chart (including review of chart, obtaining history, exam, reviewing outside data, placing orders, documenting exam and treatment plan, and counseling patient) on [DATE].
[2024-12-11] MEDS: PANTOPRAZOLE 40 MG VIAL IV ×2 (08:03→21:01)
[2024-12-11] MEDS: HYDROMORPHONE 0.5 MG INJ IV ×2 (08:03→10:21)
[2024-12-11] MEDS: HEPARIN 5,000 UNIT/ML VIAL 5000 UNIT SUBCUT ×2 (09:07→21:01)
[2024-12-11] MEDS: ONDANSETRON 4 MG/2 ML INJ IV ×3 (09:07→16:49)
--- NOTE | 2024-12-11 11:05 | CM.DANOTE ---
Patient is a 73 yo female who was admitted INPT Status on 12/10/24 for SBO. Pt has [facility] for insurance and her PCP is Haley Bills. EMR was reviewed. Per MD, pt with hx of gastric stapling and admitted after fall onto abdomen and partial SBO, AMADEO with dehydration and full liquids. Pt did not tolerate liquids and had increased distension and discomfort with emesis and NGT placed. Surgeon Consult ordered and pending, likely attempt at conservative tx as pt's prior SBO resolved without need for surgery and possible Gastrogafin Study. SW met bedside with pt and explained role and pt confirms that she lives in [place] and rents out two of her rooms and her two roommates mostly keep to themselves and pt has rented out her extra rooms for the past 20 years. Pt has local supportive brother in [place] and mostly has the support of local friends and neighbors. Pt states at baseline she is wibbly wobbly and not the steadiest at baseline but ambulates with cane independently. 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 Pt confirms she was last admitted at [facility] in May [facility]24 a few months ago for similar and was able to d/c home via friend HUMBERTO. Pt then had CVA in Jul 2024 and was transferred from [facility] to [facility] and went to SNF in [place] before discharge home. Pt has been active and independent since her return home. Pt does not anticipate any needs at discharge and is hopeful to have NGT discontinued soon and have resolutions conservatively but going down for xray at this time to confirm progress. Pt states her local friend is on stand-by to transport her home when ready for discharge. Pt anxious to get back to work on her sewing as she just bought a new sewing machine and has target end dates for her current projects. Plan: SW to follow for Surgeon consult and progress with NGT towards determining if pt can be managed conservatively vs surgery and any further identified discharge planning needs towards plan of home with friend assist. MAXIME Roberto Discharge Planning/Care Management CM Discharge Assessment Start: 12/11/24 11:02 Freq: Status: Active Protocol: Document 12/11/24 11:02 BF (Rec: 12/11/24 11:04 BF [id number]) Discharge Planning Assessment Assigned Human Resources Partner Jacquelin, JUNIOR LINUX ADMINISTRATOR DPOA/Assigned Designee Name brother Sly Contact Information [phone] Advance Directives? Yes: - polst Advance Directives on File No History Provided By Patient,Medical Record Has Patient been admitted in last 30 No days? Comment last admit in May 2024 for similar and discharged home with friend assist Prior Living Arrangements House Household Members other Comment Pt has two roommates that she rents her rooms out to but both are currently in [place] on vacation. Type of transporation used prior to Drives own vehicle admit Independent with ADL's Yes Is patient alert and oriented? Yes Needs Assistance With Home Chores / Shopping Caregiver for Another No DME Already Rented / Owned Cane Comment r/o HH pending progress Barriers to Discharge No Comment Brother might be able to assist if needed. Also friends and neighbors to assist. Discharge Plan Home Transportation Arrangement States friend can assist when stable for d/c Referrals Initiated None needed Additional Comment Pending progress with NGT and Surgeon Consult Whiteboard Updated in Patient Room with Yes name and ext. # of Human Resources Partner Review Status In Process Please Provide Date Initial DC 12/11/24 Assessment Was Performed Next Review Type Continued Stay Review
[2024-12-11] MEDS: PROCHLORPERAZINE 10 MG/2 ML VIAL 5 MG IV ×2 (11:12→18:36)
[2024-12-11] MEDS: HYDROMORPHONE 0.5 MG INJ 1 MG IV ×4 (12:39→18:35)
[2024-12-11] MEDS: TETRACAINE/BENZOCAINE/BUTAMBEN (CETACAINE) BOTTLE 1 SPRAY TOP (12:47)
--- NOTE | 2024-12-11 14:26 | PM.PN.IH.1 ---
Subjective Subjective Date Patient Seen: 12/11/24 Time Patient Seen: 14:26 Interval history: Patient has not had a bowel movement or passed gas yet, she still has some left-sided pain, unchanged from yesterday. In process of Gastrografin study. Exam Vital Signs (past 8 hours): - 12/11/24 08:00 12/11/24 11:12 12/11/24 11:30 Temperature 97.5 F L 99.6 F Pulse Rate 103 H 113 H 113 H Respiratory Rate 18 17 Blood Pressure 136/76 123/71 123/71 Pulse Oximetry 94 95 Oxygen Flow Rate 0 0 Oxygen Delivery Method Room Air Oxygen Flow Rate 0 Narrative Exam Narrative: Gen: NAD, sitting comfortably in bed, appears well HEENT: Sclera are anicteric, head is normocephalic and atraumatic, trachea is midline. CV: RRR, no JVD Resp: clear to auscultation bilaterally, equal chest wall movement bilaterally Abd: soft, minimally tender, normoactive bowel sounds Ext: no edema, full range of motion Neuro: Cranial nerves II-XII grossly intact, no focal deficits Skin: No erythema or ecchymosis Objective Labs 12/11/24 05:30 12/11/24 05:30 Labs: Laboratory Results - last 24 hr 12/11/24 05:30 WBC 4.2 L RBC 4.29 Hgb 13.1 Hct 39.3 MCV 91.7 MCH 30.6 MCHC 33.4 RDW 14.6 Plt Count 225 Neut % (Auto) 67.5 Lymph % (Auto) 20.4 L [place] % (Auto) 9.9 Eos % (Auto) 1.8 L Baso % (Auto) 0.4 Neut # (Auto) 2800 Lymph # (Auto) 900 L [place] # (Auto) 400 Eos # (Auto) 100 Baso # (Auto) 0 Sodium 138 Potassium 4.0 Chloride 104 Carbon Dioxide 26 BUN 32 H Creatinine 0.77 Estimated GFR > 60 BUN/Creatinine Ratio 41.6 H Glucose 120 H Calcium 9.4 PFSH Medical History GERD (gastroesophageal reflux disease) Osteoarthritis Low back pain Right shoulder pain History of prosthetic unicompartmental arthroplasty of left knee Small bowel obstruction (~2009) HLD (hyperlipidemia) HTN (hypertension) Pneumonia (~1973) Abdominal hernia Surgical History Status post left 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) H/O shoulder surgery Hx of tonsillectomy Hx of varicose vein stripping History of bilateral tubal ligation (~1984) Hx of cholecystectomy (~1977) Hx of appendectomy History of hernia repair Hx of colectomy (~2003) H/O medial meniscus repair of right knee (2007) H/O gastric bypass (~1979) Social History household members: other Smoking Status: Never smoker alcohol intake: former Assessment & Plan Assessment and plan (1) SBO (small bowel obstruction): Status: Acute Assessment & Plan narrative: Contrast seems to be moving toward the colon, unable to get a good view due to her body habitus on my independent review of the x-rays. Continue nasogastric tube for now. Time-Based Coding :: [TOTAL MINUTES] spent with patient and on the chart (including review of chart, obtaining history, exam, reviewing outside data, placing orders, documenting exam and treatment plan, and counseling patient) on [DATE]. PROFEE Mechanical Technologist Document charge(s): Yes Charge Codes Subsequent inpatient/observation care: [id number]
[2024-12-11] MEDS: ACETAMINOPHEN IV 1,000 MG/100 ML VIAL 400 MG IV ×2 (14:46→20:33)
--- NOTE | 2024-12-11 19:44 | EKG_ITS ---
[place] [id number] [address] [place] [id number] Test Date: 2024-12-11 Pat Name: Marlen Jules Department: Room: 222 Gender: Female Behavioral Scientist: elba : 1950 Requested By: Order Number: [id number] Reading MD: Eric Bryant MD Measurements Intervals [place] Rate: 136 P: -13 CT: 144 QRS: 268 QRSD: 86 T: 11 QT: 286 QTc: 430 Interpretive Statements Sinus tachycardia Right superior axis deviation Right ventricular hypertrophy NO SIGNIFICANT CHANGE FROM PRIOR TRACING Electronically Signed On 12-12-2024 6:48:01 PST by Eric Bryant MD
[2024-12-11] MEDS: LACTATED RINGERS 500 ML IV (19:56)
[2024-12-11 21:24] LABS: Appearance Urine UA CLEAR; Bilirubin Urine UA 1+ (NEGATIVE); Color Urine UA YELLOW; Glucose Urine UA NEGATIVE (Negative); Ketones Urine UA 3+ (NEGATIVE); Leukocyte Esterase Urine UA NEGATIVE (NEGATIVE); Nitrite Urine UA NEGATIVE (Negative); Occult Blood Urine UA NEGATIVE (Negative); Protein Urine UA TRACE (Negative); Specific Gravity Urine UA >=1.030 (1.000-1.035); Urobilinogen Urine UA 0.2 E.U./dL (0.2)
[2024-12-11 21:35] LABS: Bacteria Urine None Seen; Culture Indicated Urine Cult Not Indicated; Hyaline Casts Urine 5-10/LPF; Ictotest Urine Negative (Negative); Mucus Urine 1+ (Negative); RBC Urine 1-5/HPF (0-5/HPF); Squamous Epithelial Cell Urine 1-5 /HPF (0-5/HPF); Transitional Epi Cells Urine 0-1/HPF (0-5/HPF); Urine Volume 10mL (spun); WBC Urine 1-5/HPF (0-5/HPF); pH Urine UA 5.5 (4.5-8.0)
--- NOTE | 2024-12-11 22:34 | PC.NURSE ---
Addendum entered by Letha Doe R.N. 12/12/24 04:49: imaging confirmed placement - connected to LIS. Addendum entered by Letha Doe R.N. 12/12/24 02:25: Patient accidentally pulled out NGT again - replaced per MD order. Difficulty obtaining verification from imaging. Notified MD Askew of events. Order for 2V abdominal xray now. Original Note: Patient notably drowsy and hot to the touch at start of shift, arousable to voice and oriented although states she is tired. Placed p/ox on finger, HR noted to be in 130s. SpO2 88% on RA, placed patient on 2.5L NC, sats up to 96%. BP stable. Placed tele monitor & EKG completed. Notified MD Unger; blood cultures, U/A & 500cc bolus ordered. IV tylenol given for temp of 100.5. US guided PIV placed per MEDICAL SPECIALIST. Patient denies pain. Abdomen is distended, soft, bowel tones heard in all quadrants. x1 episode of stool incontinence so far this shift. NGT in place connected to LIS with green drainage in cannister. Patient currently resting in bed, oriented to call-light. Plan of care ongoing.
[2024-12-12] VITALS (7 sets, daily range): BP systolic 108–130; BP diastolic 51–69; PULSE 93–114; RESP 15–18; TEMP 36–37; O2SAT 94–97
--- NOTE | 2024-12-12 00:45 | DI.RAD.S_ITS ---
PROCEDURE: XR CHEST 1V INDICATIONS: Confirm NGT placement TECHNIQUE: One view of the chest was acquired. COMPARISON: [facility], CR, XR GASTROGRAFIN CHALLENGE, 12/11/2024, 12:47. [facility], CR, XR CHEST 1V, 12/11/2024, 3:17. [facility], CR, XR CHEST 1V, 12/10/2024, 8:30. FINDINGS: Surgical changes and devices: Right upper quadrant surgical clips. Enteric tube coursing below the left hemidiaphragm; the distal tip and the side port are not distinctly identified but remain at the proximal stomach. Partially identified right shoulder reverse arthroplasty Lungs and pleura: Mild right basilar subsegmental atelectasis. No pleural effusions or pneumothorax. Mediastinum: Aortic arch calcifications. Mediastinal contours appear normal. Heart size is normal. Bones and chest wall: No suspicious bony lesions. Overlying soft tissues appear unremarkable. IMPRESSION: Suboptimal visualization of the enteric tube, although the side port and the tip remain at the proximal stomach Dictated by: Elio Bolivar M.D. on 12/12/2024 at 1:17 Approved by: Elio Bolivar M.D. on 12/12/2024 at 1:20
[2024-12-12] MEDS: LACTATED RINGERS 1,000 ML 100 ML IV (00:49)
--- NOTE | 2024-12-12 01:36 | DI.RAD.S_ITS ---
PROCEDURE: XR CHEST 1V INDICATIONS: repeat to verify NGT placement TECHNIQUE: One view of the chest was acquired. COMPARISON: [facility], CR, XR CHEST 1V, 12/12/2024, 0:46. [facility], CR, XR CHEST 1V, 12/11/2024, 3:17. [facility], CR, XR CHEST 1V, 12/10/2024, 8:30. FINDINGS: Surgical changes and devices: Enteric tube tip and side port remain at the proximal stomach. Right upper quadrant surgical clips. Right reverse total shoulder arthroplasty. Right upper quadrant surgical clips. Lungs and pleura: Bibasilar dependent consolidations. No pleural effusions or pneumothorax. Mediastinum: Mediastinal contours appear normal. Heart size is normal. Bones and chest wall: No suspicious bony lesions. Overlying soft tissues appear unremarkable. IMPRESSION: No significant change in position of enteric tube tip and side port at the proximal stomach, which are not well identified on this x-ray despite aggressive windowing. Consider further advancement by 10-15 cm and a repeat abdomen x-ray, which may provide better contrast resolution. Dictated by: Elio Bolivar M.D. on 12/12/2024 at 1:47 Approved by: Elio Bolivar M.D. on 12/12/2024 at 1:50
--- NOTE | 2024-12-12 02:30 | DI.RAD.S_ITS ---
PROCEDURE: XR ABDOMEN MIN 2V INDICATIONS: PSBO, follow contrast TECHNIQUE: 2 views of the abdomen were acquired. COMPARISON: [facility], CR, XR GASTROGRAFIN CHALLENGE, 12/11/2024, 12:47. FINDINGS: Surgical changes and devices: Enteric tube with tip and side port projecting over the expected location of the stomach. Surgical clips project over the right upper quadrant and pelvis. Bowel: Contrast seen throughout the colon and rectum. Dilated loops of small bowel in the left mid abdomen measure up to 41 millimeters, previously 62 millimeters. Soft tissues: Possible left basilar opacity, not well evaluated on this exam. No masses; visualized solid organ contours appear normal in size. No suspicious abdominal calcifications. Bones: No suspicious bony abnormalities. IMPRESSION: Enteric tube with tip and side port projecting over the expected location of the stomach. Distended left-sided small bowel loops are decreased compared to prior. Possible left basilar opacity, not well evaluated on this exam. Findings are concordant with preliminary interpretation provided by [facility]. Dictated by: Franco Pang M.D. on 12/12/2024 at 8:24 Approved by: Franco Pang M.D. on 12/12/2024 at 8:27
[2024-12-12 06:38] LABS: Add Manual Diff / Slide Review NO; Basophils Absolute Auto 0 /uL (0-100); Basophils Percent Auto 0.5 % (0-2); Eosinophils Absolute Auto 0 /uL (0-450); Eosinophils Percent Auto 0.1 % (2-4); Hematocrit 35.9 % (36-46); Hemoglobin 12.2 g/dL (12.0-16.0); Lymphocytes Absolute Auto 400 /uL (1100-4500); Lymphocytes Percent Auto 6.5 % (25-40); Mean Corpuscular HGB Conc 33.9 % (30-36); Mean Corpuscular Volume 91.3 fL (80-100); Monocytes Absolute Auto 400 /uL (0-900); Monocytes Percent Auto 5.5 % (3-14); Neutrophils Absolute Auto 6000 /uL (1500-7000); Neutrophils Percent Auto 87.4 % (50-75); Platelet Count 211 X10^3/uL (150-400); Red Blood Cell Count 3.93 X10^6/uL (4.0-5.2); Red Cell Distribution Width 14.6 % (11.6-14.8); White Blood Cell Count 6.9 X10^3/uL (4.5-11.0)
[2024-12-12 06:46] LABS: Blood Urea Nitrogen 28 mg/dL (7-17); Calcium 9.1 mg/dL (8.4-10.2); Carbon Dioxide 26 mmol/L (22-32); Chloride 107 mmol/L (98-107); Estimated Glomerular Filt Rate > 60 mL/min (>60); Glucose 133 mg/dL (80-110); HEMOLYSIS < 15 (0-50); Potassium 3.8 mmol/L (3.4-5.1); Sodium 141 mmol/L (137-145)
--- NOTE | 2024-12-12 08:26 | P.PN_ITS ---
Subjective Subjective Interval history: Summary: Admitted with a SBO. Gastrografin challenge proves slow motility and no opacification of: At 2:30 a.m.. Surgery is following. S: No flatus or bowel movement. She required a right mid because of pulling her NG tube overnight. She was mildly confused. She denies any nausea, vomiting, flatus or bowel movement. Exam Vital Signs (past 8 hours): - 12/12/24 04:00 12/12/24 07:21 Temperature 98.2 F Pulse Rate 104 H Respiratory Rate 17 Blood Pressure 116/59 L Pulse Oximetry 96 96 Oxygen Delivery Method Nasal Cannula Oxygen Flow Rate 2.5 2.5 Fraction of Inspired Oxygen 28 SaO2/FiO2 Ratio 332 Oxygen Delivery Method Nasal Cannula Oxygen Flow Rate 2.5 Narrative Exam Narrative: NAD, alert and oriented. Fluent speech. Mildly confused, NG tube in place. Lungs are clear, normal rate and effort. Heart is regular, no murmur gallop or rub. Abdomen is soft, non distended. Hyperactive bowel tones are noted. Extremities are free of edema. Objective Labs 12/12/24 06:08 12/12/24 06:08 Labs: Laboratory Results - last 24 hr 12/11/24 12/12/24 20:52 06:08 WBC 6.9 D RBC 3.93 L Hgb 12.2 Hct 35.9 L MCV 91.3 MCH 31.0 MCHC 33.9 RDW 14.6 Plt Count 211 Neut % (Auto) 87.4 H Lymph % (Auto) 6.5 L [place] % (Auto) 5.5 Eos % (Auto) 0.1 L Baso % (Auto) 0.5 Neut # (Auto) 6000 Lymph # (Auto) 400 L [place] # (Auto) 400 Eos # (Auto) 0 Baso # (Auto) 0 Sodium 141 Potassium 3.8 Chloride 107 Carbon Dioxide 26 BUN 28 H Creatinine 0.70 Estimated GFR > 60 BUN/Creatinine Ratio 40.0 H Glucose 133 H Calcium 9.1 Urine Color Yellow Urine Appearance Clear Urine pH 5.5 Ur Specific Peak >=1.030 H Urine Protein Trace H Urine Glucose (UA) Negative Urine Ketones 3+ H Urine Occult Blood Negative Urine Nitrate Negative Urine Bilirubin 1+ H Ur Bilirubin Confirm Negative Urine Urobilinogen 0.2 Ur Leukocyte Esterase Negative Urine RBC 1-5/hpf Urine WBC 1-5/hpf Ur Squamous Epith Cells 1-5 /hpf Ur Transition Epith Cell 0-1/hpf Urine Bacteria None seen Hyaline Casts 5-10/lpf Urine Mucus 1+ H Ur Culture Indicated? 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 Partial small bowel obstruction. NG tube, IV fluids, Gastrografin challenge per surgery. 2. History of possible TIA stroke July 2024. Restart medications when able. 3. History of multiple abdominal surgeries. 4. Diabetes mellitus, type 2. Hold Trulicity and metformin and resume when taking orals. Sliding scale insulin coverage 5. Hypertension. Hold losartan and resume when taking orals. 6. Hyperlipidemia. Hold atorvastatin and resume when taking orals 7. DVT prophylaxis: SCDs, SQ heparin 8. Code status: Do not resuscitate. She clearly states that she would not wish cardiopulmonary resuscitation in the event cardiopulmonary arrest. Her brother is her surrogate decision maker. Plan: -she does not appear to be improving, repeat KUB to check Gastrografin at this time and continue NG tube. We will discuss with surgery. -NPO -IV fluids -PPI BID -monitor mental status. -SQ heparin -surgery following -Gastrografin challenge started 12/11. HUEY: 12/15. Time-Based Coding :: [TOTAL MINUTES] spent with patient and on the chart (including review of chart, obtaining history, exam, reviewing outside data, placing orders, documenting exam and treatment plan, and counseling patient) on [DATE].
[2024-12-12] MEDS: INSULIN LISPRO 100 UNIT/ML 3ML VIAL SUBCUT ×2 (08:30→18:09)
[2024-12-12] MEDS: PANTOPRAZOLE 40 MG VIAL IV (09:14)
[2024-12-12] MEDS: HEPARIN 5,000 UNIT/ML VIAL 5000 UNIT SUBCUT ×2 (09:14→20:14)
--- NOTE | 2024-12-12 12:19 | PM.PN.IH.1 ---
Subjective Subjective Date Patient Seen: 12/12/24 Time Patient Seen: 12:19 Interval history: Patient had a large bowel movement this morning. Contrast in the colon on follow-up imaging. Very little coming out of the nasogastric tube. Her main complaints are earache and sore throat. Exam Vital Signs (past 8 hours): - 12/12/24 07:21 12/12/24 08:00 Temperature 98.5 F Pulse Rate 96 H Respiratory Rate 16 Blood Pressure 130/68 Pulse Oximetry 96 97 Oxygen Delivery Method Nasal Cannula Oxygen Flow Rate 2.5 0 Fraction of Inspired Oxygen 28 SaO2/FiO2 Ratio 332 Oxygen Delivery Method Nasal Cannula Oxygen Flow Rate 0 Narrative Exam Narrative: Gen: NAD, sitting comfortably in bed, appears well HEENT: Sclera are anicteric, head is normocephalic and atraumatic, trachea is midline. CV: RRR, no JVD Resp: clear to auscultation bilaterally, equal chest wall movement bilaterally Abd: soft, nontender, normoactive bowel sounds Ext: no edema, full range of motion Neuro: Cranial nerves II-XII grossly intact, no focal deficits Skin: No erythema or ecchymosis Objective Labs 12/12/24 06:08 12/12/24 06:08 Labs: Laboratory Results - last 24 hr 12/11/24 12/12/24 20:52 06:08 WBC 6.9 D RBC 3.93 L Hgb 12.2 Hct 35.9 L MCV 91.3 MCH 31.0 MCHC 33.9 RDW 14.6 Plt Count 211 Neut % (Auto) 87.4 H Lymph % (Auto) 6.5 L [place] % (Auto) 5.5 Eos % (Auto) 0.1 L Baso % (Auto) 0.5 Neut # (Auto) 6000 Lymph # (Auto) 400 L [place] # (Auto) 400 Eos # (Auto) 0 Baso # (Auto) 0 Sodium 141 Potassium 3.8 Chloride 107 Carbon Dioxide 26 BUN 28 H Creatinine 0.70 Estimated GFR > 60 BUN/Creatinine Ratio 40.0 H Glucose 133 H Calcium 9.1 Urine Color Yellow Urine Appearance Clear Urine pH 5.5 Ur Specific [place] >=1.030 H Urine Protein Trace H Urine Glucose (UA) Negative Urine Ketones 3+ H Urine Occult Blood Negative Urine Nitrate Negative Urine Bilirubin 1+ H Ur Bilirubin Confirm Negative Urine Urobilinogen 0.2 Ur Leukocyte Esterase Negative Urine RBC 1-5/hpf Urine WBC 1-5/hpf Ur Squamous Epith Cells 1-5 /hpf Ur Transition Epith Cell 0-1/hpf Urine Bacteria None seen Hyaline Casts 5-10/lpf Urine Mucus 1+ H Ur Culture Indicated? 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 Patient states she would not want to undergo surgery and is DNR due to stroke in July. Okay to trial clear liquids and remove NG Time-Based Coding :: [TOTAL MINUTES] spent with patient and on the chart (including review of chart, obtaining history, exam, reviewing outside data, placing orders, documenting exam and treatment plan, and counseling patient) on [DATE]. PROFEE Counter Manager Document charge(s): Yes Charge Codes Subsequent inpatient/observation care: [id number]
--- NOTE | 2024-12-12 14:25 | CM.DPC ---
DCP COnt: Per MD, pt accidentally pulled out NGT and had difficulty inserting new but now per Surgeon pt with large bm and minimal output through NGT and pt's SBO appears to be resolving and can d/c NGT today and start a trial of clear liquids this afternoon. Plan: SW to follow for plan of discharge home when stable, likely tomorrow if pt's SBO resolved. MAXIME Roberto
[2024-12-12] MEDS: GABAPENTIN 100 MG CAPSULE PO ×2 (15:44→20:14)
[2024-12-12 17:45] LABS: Hemoglobin A1C% w Est Avg Glu 6.3 % (4.0-6.0)
[2024-12-12] MEDS: LORazepam 2 MG/ML INJ 0.5 MG IV (20:14)
[2024-12-12] MEDS: QUETIAPINE 25 MG TABLET PO (20:14)
[2024-12-12] MEDS: ATORVASTATIN 20 MG TABLET 80 MG PO (20:14)
[2024-12-12] MEDS: HYDROMORPHONE 1 MG INJ IV (20:15)
[2024-12-13 04:00] VITALS: BP 119/66; PULSE 85; RESP 17; TEMP 35.8; O2SAT 94
[2024-12-13 08:00] VITALS: BP 111/56; PULSE 85; RESP 14; TEMP 36; O2SAT 94
[2024-12-13] MEDS: PANTOPRAZOLE DR 20 MG TABLET PO (10:07)
[2024-12-13] MEDS: HEPARIN 5,000 UNIT/ML VIAL 5000 UNIT SUBCUT ×2 (10:07→21:37)
[2024-12-13] MEDS: GABAPENTIN 100 MG CAPSULE PO ×3 (10:07→21:37)
[2024-12-13 12:27] VITALS: BP 124/62; PULSE 80; RESP 16; TEMP 36.1; O2SAT 95
[2024-12-13] MEDS: INSULIN LISPRO 100 UNIT/ML 3ML VIAL SUBCUT (16:46)
[2024-12-13 20:00] VITALS: BP 133/64; PULSE 88; RESP 18; TEMP 35.9; O2SAT 95
--- NOTE | 2024-12-13 20:10 | PM.PN.1 ---
Subjective Subjective Interval history: Summary: Admitted with a SBO. now seemingly resolved. She was quite drowsy today after getting ativan and dilaudid overnight. She has no pain this morning, advanced to diet for lunch. Discontinued dilaudid and ativan prn. Exam Vital Signs (past 8 hours): - 12/13/24 12:27 Temperature 96.9 F L Pulse Rate 80 Respiratory Rate 16 Blood Pressure 124/62 Pulse Oximetry 95 Oxygen Flow Rate 0 Fraction of Inspired Oxygen 28 SaO2/FiO2 Ratio 332 Oxygen Delivery Method Nasal Cannula Oxygen Flow Rate 0 Objective Labs 12/12/24 06:08 12/12/24 06:08 [facility] Medical History GERD (gastroesophageal reflux disease) Osteoarthritis Low back pain Right shoulder pain History of prosthetic unicompartmental arthroplasty of left knee Small bowel obstruction (~2009) HLD (hyperlipidemia) HTN (hypertension) Pneumonia (~1973) Abdominal hernia Surgical History Status post left 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 Partial small bowel obstruction. NG tube, IV fluids, Gastrografin challenge per surgery. 2. History of possible TIA stroke July 2024. Restart medications when able. 3. History of multiple abdominal surgeries. 4. Diabetes mellitus, type 2. Hold Trulicity and metformin and resume when taking orals. Sliding scale insulin coverage 5. Hypertension. Hold losartan and resume when taking orals. 6. Hyperlipidemia. Hold atorvastatin and resume when taking orals 7. DVT prophylaxis: SCDs, SQ heparin 8. Code status: Do not resuscitate. She clearly states that she would not wish cardiopulmonary resuscitation in the event cardiopulmonary arrest. Her brother is her surrogate decision maker. Plan: -advanced diet to general -resume home medications, but continue to hold home BP medications of losartan and amlodipine, she is normotensive today -if patient is less lethargic tomorrow and continues to tolerate a diet, can likely discharge Time-Based Coding :: [TOTAL MINUTES] spent with patient and on the chart (including review of chart, obtaining history, exam, reviewing outside data, placing orders, documenting exam and treatment plan, and counseling patient) on [DATE].
[2024-12-13] MEDS: QUETIAPINE 25 MG TABLET PO (21:37)
[2024-12-13] MEDS: ATORVASTATIN 20 MG TABLET 80 MG PO (21:37)
[2024-12-14] MEDS: ACETAMINOPHEN 325 MG TABLET 975 MG PO ×2 (02:00→14:43)
[2024-12-14 04:00] VITALS: BP 129/63; PULSE 89; RESP 17; TEMP 35.6; O2SAT 96
[2024-12-14 04:31] LABS: Add Manual Diff / Slide Review NO; Basophils Absolute Auto 0 /uL (0-100); Basophils Percent Auto 0.5 % (0-2); Eosinophils Absolute Auto 200 /uL (0-450); Eosinophils Percent Auto 2.7 % (2-4); Hematocrit 33.2 % (36-46); Hemoglobin 11.2 g/dL (12.0-16.0); Lymphocytes Absolute Auto 1000 /uL (1100-4500); Lymphocytes Percent Auto 15.5 % (25-40); Mean Corpuscular HGB Conc 33.8 % (30-36); Mean Corpuscular Hemoglobin 30.6 PG (26-34); Mean Corpuscular Volume 90.5 fL (80-100); Monocytes Absolute Auto 300 /uL (0-900); Monocytes Percent Auto 4.6 % (3-14); Neutrophils Absolute Auto 5100 /uL (1500-7000); Neutrophils Percent Auto 76.7 % (50-75); Platelet Count 208 X10^3/uL (150-400); Red Blood Cell Count 3.67 X10^6/uL (4.0-5.2); Red Cell Distribution Width 14.8 % (11.6-14.8); White Blood Cell Count 6.6 X10^3/uL (4.5-11.0)
[2024-12-14 04:36] LABS: Alanine Aminotransferase 21 IU/L (<35); Albumin Globulin Ratio 1.1 (1.0-2.8); Alkaline Phosphatase 85 U/L (38-126); Aspartate Aminotransferase 27 IU/L (14-36); Bilirubin Total 0.5 mg/dL (0.2-1.3); Blood Urea Nitrogen 22 mg/dL (7-17); Calcium 8.9 mg/dL (8.4-10.2); Carbon Dioxide 28 mmol/L (22-32); Chloride 107 mmol/L (98-107); Estimated Glomerular Filt Rate > 60 mL/min (>60); Globulin 2.7 g/dL (1.7-4.1); Glucose 120 mg/dL (80-110); HEMOLYSIS < 15 (0-50); Magnesium 1.4 mg/dL (1.6-2.3); Potassium 3.6 mmol/L (3.4-5.1); Sodium 139 mmol/L (137-145); Total Protein 5.7 g/dL (6.3-8.2)
[2024-12-14] MEDS: HEPARIN 5,000 UNIT/ML VIAL 5000 UNIT SUBCUT (09:06)
[2024-12-14] MEDS: GABAPENTIN 100 MG CAPSULE PO (09:06)
[2024-12-14] MEDS: PANTOPRAZOLE DR 20 MG TABLET PO (09:06)
[2024-12-14] MEDS: INSULIN LISPRO 100 UNIT/ML 3ML VIAL SUBCUT (12:16)
[2024-12-14] MEDS: MAGNESIUM CHLORIDE 64 MG TABLET 128 MG PO (12:16)
[2024-12-14 12:20] VITALS: BP 122/68; PULSE 84; RESP 17; TEMP 36.1; O2SAT 96
--- NOTE | 2024-12-14 13:46 | P.DS_ITS ---
History of Present Illness History of Present Illness Date Patient Seen: 12/14/24 Time Patient Seen: 13:47 Chief complaint: vomiting Narrative: Per admitting provider, 74-year-old woman under the primary care of ELISABETH Lovell, reports 4 days of nausea and vomiting, initially with diarrhea but no stool output in the last 3 days and not passing flatus. She has history of prior small bowel obstruction and gastric stapling bariatric surgery, hospitalized at this hospital in May and treated with Gastrografin enema, resolving spontaneously. She states in July she had a stroke, which he was found outside by her 10 and make it and hypothermic at 90? F and admitted to [facility], and subsequently discharged to rehabilitation. She states she has no neurologic deficits. 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 ?I do not have time for this?. She denies chest pain, shortness for breath, lateralizing weakness, paresthesias, or stroke symptoms. Discharge Providers Provider Date of admission: 12/10/24 09:25 Discharge Date: 12/14/24 Primary care physician: Haley Bills PA-C Consults: 12/10/24 09:01 Consult to Physician Stat Comment: Consulting Provider: James Askew Reason for consultation: SBO Has provider been notified: Yes Discharge provider: Heladio Green DO Summary Hospital Course Discharge Diagnosis: 1. Partial small bowel obstruction due to adhesions 2. History of possible TIA stroke July 2024. 3. History of multiple abdominal surgeries. 4. Diabetes mellitus, type 2. 5. Hypertension. 6. Hyperlipidemia. 7. Acute otitis media, not present on admission. Hospital Course: This is a 74 year old female with PMH of TIA/CVA, DM2, HTN, HLD who was admitted with a partial SBO noted on CT imaging. NG tube was placed. After gastrograffin challenge patient has a large bowel movement. Her abdominal pain improved and she was then able to tolerate a diet after slowly advancing from clears after removal of her NG tube. She was given some IV ativan overnight along with dilaudid, the day following she was quite lethargic but improved slowly. A day after this she was more alert, she was tolerating a diet, but did complain of new R ear pain and decreased hearing. Exam showed a dull tympanic membrane behind some wax. It is possible this was due to NG tube placement. She was discharged on augmentin given her age for otitis media for 10 days on discharge. No other changes are recommended to home medications on discharge. Time Spent with Patient Time spent: Greater than 30 minutes Exam Vital Signs (past 8 hours): - 12/14/24 12:20 Temperature 97.0 F L Pulse Rate 84 Respiratory Rate 17 Blood Pressure 122/68 Pulse Oximetry 96 Oxygen Flow Rate 0 Fraction of Inspired Oxygen 28 SaO2/FiO2 Ratio 332 Oxygen Delivery Method Nasal Cannula Oxygen Flow Rate 0 Narrative Exam Narrative: NAD, alert and oriented. Fluent speech. Mildly confused, NG tube in place. Lungs are clear, normal rate and effort. Heart is regular, no murmur gallop or rub. Abdomen is soft, non distended. Hyperactive bowel tones are noted. Extremities are free of edema. Objective Labs 12/14/24 04:00 12/14/24 04:00 Labs: Laboratory Results - last 24 hr 12/14/24 04:00 WBC 6.6 RBC 3.67 L Hgb 11.2 L Hct 33.2 L MCV 90.5 MCH 30.6 MCHC 33.8 RDW 14.8 Plt Count 208 Neut % (Auto) 76.7 H Lymph % (Auto) 15.5 L [place] % (Auto) 4.6 Eos % (Auto) 2.7 Baso % (Auto) 0.5 Neut # (Auto) 5100 Lymph # (Auto) 1000 L [place] # (Auto) 300 Eos # (Auto) 200 Baso # (Auto) 0 Sodium 139 Potassium 3.6 Chloride 107 Carbon Dioxide 28 BUN 22 H Creatinine 0.71 Estimated GFR > 60 BUN/Creatinine Ratio 31.0 H Glucose 120 H Calcium 8.9 Magnesium 1.4 L Total Bilirubin 0.5 AST 27 ALT 21 Alkaline Phosphatase 85 Total Protein 5.7 L Albumin 3.0 L Globulin 2.7 Albumin/Globulin Ratio 1.1 [facility] Medical History GERD (gastroesophageal reflux disease) Osteoarthritis Low back pain Right shoulder pain History of prosthetic unicompartmental arthroplasty of left knee Small bowel obstruction (~2009) HLD (hyperlipidemia) HTN (hypertension) Pneumonia (~1973) Abdominal hernia Surgical History Status post left 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 You did seemingly have a right ear infection and will be treated for this. No other medication changes are needed. Discharge orders & Medications Prescriptions: New amoxicillin-pot clavulanate 875-125 mg tablet 1 tab PO BID 10 Days Qty: 20 0RF Continued cholecalciferol (vitamin D3) [Vitamin D3] 5,000 unit Tablet 10,000 unit PO DAILY Qty: 0 losartan 25 MG tablet 50 mg PO BID Qty: 0 Fish Oil 360 mg-144 mg- 216 mg-1,200 mg Capsule,Delayed Release(Dr/Ec) 2 cap PO BID Qty: 0 Rx Instructions: 2 tabs qam, 1 tab noon atorvastatin 20 mg Tablet 80 mg PO BEDTIME naproxen sodium [Aleve] 220 mg Capsule 220 mg PO BID metformin 500 mg Tablet 500 mg PO DAILY Trulicity 1.5 mg/0.5 mL Pen Injector 1.5 mg SUBCUT WEEKLY Patient Comments: Injects on Tuesdays Rx Instructions: takes weekly on Wednesday quetiapine 25 mg tablet 25 mg PO BEDTIME nystatin 100,000 unit/gram ointment 1 applic topical PRN PRN (Reason: fungal) minocycline 100 mg capsule 100 mg PO BID amlodipine 5 mg tablet 5 mg PO DAILY triamcinolone acetonide 0.1 % ointment 1 applic topical BID metronidazole 0.75 % cream 1 applic topical DAILY gabapentin 100 mg capsule 100 mg PO 3XD cyclosporine 0.05 % dropperette 1 drp EYE-BOTH BID omeprazole 20 MG capsule,delayed release(DR/EC) 20 mg PO DAILY Follow up/Referrals: Hlaey Bills PA-C [Primary Care Provider] - Diet/Activity/Treatments Diet: Diet as Tolerated and Regular Activity: As tolerated, no restrictions Visit Report/Discharge Packet Instructions: DI for Small Bowel Obstruction Stand Alone Forms: Patient Portal/API, Stroke Signs & Symptoms Discharge Data Primary Care Provider: Haley Bills
== END 2024-12-14 14:57 | disposition home or self-care (01) | DRG 390 ==
LOC: ED 09:25 → AC 09:26
PROVIDERS: Emergency Medicine; Internal Medicine; Pharmacist Pharmacist Clinician (PhC)/ Clinical Pharmacy Specialist; Admitting Provider Internal Medicine; Emergency Provider Emergency Medicine; PCP Physician Assistant Medical; Referring Provider Emergency Medicine; Visit Provider Internal Medicine
DX: K56.51 Intestinal adhesions [bands], with partial obstruction (principal); E11.9 Type 2 diabetes mellitus without complications; I10 Essential (primary) hypertension; E78.5 Hyperlipidemia, unspecified; H66.91 Otitis media, unspecified, right ear; K21.9 Gastro-esophageal reflux disease without esophagitis; Z79.84 Long term (current) use of oral hypoglycemic drugs; Z66 Do not resuscitate; Z98.84 Bariatric surgery status; Z79.85 Long-term (current) use of injectable non-insulin antidiabetic drugs; Z86.73 Personal history of transient ischemic attack (TIA), and cerebral infarction without residual deficits
CPT/HCPCS: 36415; 71045; 74018; 74019; 74177; 80048; 80053; 81001; 82962; 83036; 83605; 83690; 83735; 85025; 87040; 93005; 93010; 94762; 96361; 96374; 96375; 99232; 99284; J0131; J0780; J1171; J1644; J1815; J2060; J2405; J2470; Q9967